=== PATIENT | female | born 1940 | race Caucasian/White ===

== ENCOUNTER → 2023-06-11 08:57 | Outpatient (CLI) | payer OTHER, SELFPAY ==
--- NOTE | 2023-06-11 | DI.MRI.S_ITS ---
PROCEDURE: MR LUMBAR SPINE WO CON INDICATIONS: SPINAL STENOSIS TECHNIQUE: Noncontrast sagittal T1 spin echo and T2 fast echo, sagittal STIR, and T2 fast spin echo through the lumbar spine. In cases with scoliosis, additional coronal T2 fast spin echo may be performed. COMPARISON: [facility] [place], CR, XR LUMBAR SPINE 2 OR 3 VIEWS, 06/04/2023, 9:16. FINDINGS: Image quality: Excellent. Alignment and Curvature: Mild levocurvature of the thoracolumbar spine. Minimal anterolisthesis of L3 on L4. Bone Marrow: Marrow is of normal overall signal. Multilevel degenerative endplate changes, most pronounced at L5-S1. No acute vertebral body compression fractures. Spinal Cord: Conus medullaris terminates at the L1-L2 level. Visualized cord demonstrates normal signal and size. Paraspinous Soft Tissues: No paravertebral masses. Right renal simple cysts. T12-L1: Disc desiccation height loss with posterior disc bulge. Facet arthropathy. Mild central canal stenosis. Moderate left and mild right neural foraminal stenosis. L1-L2: Disc desiccation height loss with posterior disc bulge. Facet arthropathy and thickening of the ligamentum flavum. Moderate central canal stenosis. Moderate bilateral neural foraminal stenosis. L2-L3: Disc desiccation height loss with posterior disc bulge. Facet arthropathy and thickening of ligamentum flavum. Moderate central canal stenosis. Mild bilateral neural foraminal stenosis. L3-L4: Disc desiccation height loss with diffuse disc bulge and superiorly directed disc extrusion. Facet arthropathy and thickened ligamentum flavum. Severe central canal stenosis. Moderate right and mild left neural foraminal stenosis. L4-L5: Disc desiccation height loss. Facet arthropathy. Mild central canal stenosis. Mild bilateral neural foraminal stenosis. L5-S1: Disc desiccation and height loss. Mild posterior disc bulge with superimposed left paracentral disc protrusion resulting in narrowing of the left lateral recess. No central canal stenosis. Facet arthropathy. Moderate left neural foraminal stenosis. No right neural foraminal stenosis. IMPRESSION: 1. Multilevel degenerative changes of the lumbar spine, most pronounced at L3-L4 with a disc extrusion resulting in severe central canal stenosis. 2. Multilevel central canal stenosis as described above, moderate L1-L2 and L2-L3. 3. Multilevel neural foraminal stenosis up to moderate, as described above. Dictated by: Wilber Stevens M.D. on 06/11/2023 at 10:45 Approved by: Wilber Stevens M.D. on 06/11/2023 at 10:52
== END ==
PROVIDERS: Referring Provider Physical Medicine & Rehabilitation; Visit Provider Physical Medicine & Rehabilitation
DX: M48.062 Spinal stenosis, lumbar region with neurogenic claudication (principal); M51.26 Other intervertebral disc displacement, lumbar region; M48.061 Spinal stenosis, lumbar region without neurogenic claudication
CPT/HCPCS: 72148

== ENCOUNTER 2023-07-13 12:04 | Inpatient (IN) | payer OTHER, SELFPAY ==
[2023-07-13] VITALS (14 sets, daily range): BP systolic 145–186; BP diastolic 77–101; PULSE 62–86; RESP 12–20; TEMP 36.1–36.6; O2SAT 93–100; BMI 28.3
--- NOTE | 2023-07-13 13:17 | PM.PREOP ---
Pre-operative Note Interval Note History & Physical reviewed/Exam performed by Physician: Yes Changes to H&P: No
[2023-07-13] MEDS: LACTATED RINGERS 1,000 ML 100 ML IV (13:20)
--- NOTE | 2023-07-13 13:44 | SUR.OPER ---
Prone on spine table, head in foam head support, padded chest and pelvic supports, gel pad at knees, lower legs supported by pillows; nipples, genitalia and toes free of pressure, arms secured on foam padded arm boards at <90 degrees abduction. Tape over blanket at thigh secured to table.
[2023-07-13] MEDS: CEFAZOLIN 2 GM/100 ML PREMIX 100 ML IV ×2 (14:20→21:17)
[2023-07-13] MEDS: BUPIVACAINE LIPOSOME 266 MG/20 ML VIAL INJ (15:59)
[2023-07-13] MEDS: BUPIVACAINE 0.25% (PF) 60 ML, EPINEPHrine 0.15 MG INJ (15:59)
--- NOTE | 2023-07-13 16:16 | P.OP_ITS ---
Operative Date/Time/Diagnoses Date of procedure: 07/13/23 Time of procedure: 14:30 Pre-op diagnosis: 1. L3-4 spinal stenosis with neurogenic claudication 2. L3-4 disc herniation Post-op diagnosis: same Procedure & Clinicians Procedure: 1. L3-4 Postero-lateral and posterior interbody fusion 2. L3-4 interbody cage placement. 3. L3-4 decompressive laminectomy with bilateral facetecomies 4. L3-4 Posterior non-segmental instrumentation 5. [place] of bone marrow from iliac crest 6. Utilization of microsurgical technique and operating microscope Same procedure as scheduled: Yes Indications: Patient has been having chronic back pain and worsening lumbar radiculopathy and symptoms of neurogenic claudication. The patient has been having worsening difficulty walking and is only able to walk 1 block. She is only able to stand for 5 minutes before her leg pain becomes severe. She has bilateral lower extremity symptoms that alternates in severity and laterality for the last 3 months. Patient failed multiple conservative management with worsening pain weakness and numbness in her lower extremity. Patient has been having difficulty performing activity of daily living. After discussing risks benefits of treatment options, patient elected proceed with surgery. Surgeon: Demarcus Diaz Filling And Packing Supervisor: Loreto Neville Click Yes if Unassisted: No Anesthesia Type: General Operative Notes Closure Type: primary Specimen(s): none sent Prosthetic devices, grafts, tissues, transplants, or devices: Globus revolve screws, Rise cage Estimated Blood Loss (mL): 50 Blood products transfused: none Procedure in detail: Patient was seen in the preoperative area. Risks and benefits of the surgery was discussed with the patient. Informed consent was obtained from the patient and placed in the chart. Surgical site was marked. Patient was taken to the operative room. General anesthesia was administered. Prophylactic antibiotic was given to the patient less than 30 min before the incision was made. Patient was placed into a prone position on the Leroy table. Patient's back was then prepped and draped in the sterile fashion. Time-out was performed at this time. Using AP and lateral C-arm imaging the interval between L3-4 was identified and marked on patient's back. A 2 inch incision 2 in from midline was made on the right side first. The fascia was incised in line with skin incision. Globus MARS retractors was placed inside the incision and docked onto the L4 lamina. Using microsurgical technique and operating microscope, a for laminectomy and L3-4 facetectomy was performed using a Kerrison rongeur. The laminectomy and facetectomy was performed in order to decompress patient's cauda equina as well as the nerve roots exiting at the L3-4 level. The disc space at L3-4 was identified. And a total diskectomy was performed at L3-4 level. Patient was found to have skin and consider amount of extruded disc fragments in the epidural space anterior to the thecal sac as well as in the posterolateral recess of the L3-4 level. Total discectomy was necessary in order to fully decompress the epidural space as well as the lateral recess. The decompression consisting of laminectomy facetectomy and diskectomy rendered the L3-4 level grossly unstable and required a fusion procedure at the same time. The endplates were decorticated using a rasp and shaver. The total diskectomy and decortication was performed at L3-4 level in order to to accomplish a L3-4 fusion. The local bone from the laminectomy and facetectomy was saved for local bone grafting. After the total diskectomy and decortication was completed, the BM bone graft material was combined with local bone that was harvested earlier. At this time, a separate skin is incision was made over the iliac crest. A Jamshidi needle was inserted into the iliac crest through a separate skin incision. 5 cc of bone marrow aspiration was obtained through the separate skin incision using a Jamshidi needle from the iliac crest. The bone marrow aspiration was combined with local bone and the DBM bone grafting material. The bone grafting material was placed into the L3-4 interbody space along with a expandable cage. The cage was expanded to its maximum height using the torque limiting screwdriver. At this time a mirror image incision was made on the left side. The fascia was incised in line with the skin incision. Globus MARS retractor was inserted and docked onto the L3-4 posterolateral gutter. Using the power drill, posterior- lateral decortication was performed at L3-4 level until bleeding cortical bone was identified. The remaining bone grafting material was placed into the L3-4 posterior lateral gutter he order to accomplish posterolateral fusion at the L3- 4 level. Using the double C-arm technique, pedicle screws were placed into the L3-4 pedicles bilaterally. This was done by placing the Jamshidi needle into the pedicles, then placing the guidewires over the Jamshidi needle, and finally placing the cannulated screws over the guidewires bilaterally. After the pedicle screws were placed, 2 titanium rods was locked into the heads of the pedicle screws using locking caps and torque limiting screwdriver. After all the hardware was placed, and confirmed with AP and lateral C-arm imaging, the wound was then irrigated with sterile normal saline and packed with Ray-Oscar gauze for 3 min to accomplish hemostasis. After the gauze was removed the deep fascia was closed with #1 Vicryl suture. The subcutaneous layer was closed with 2-0 Vicryl. The skin was closed with skin daksha. Patient tolerated the procedure well. There were no complications. The Operation could not have been safely performed without compromising the technical result or length of the procedure, without the assistance of a skilled registered nurse surgical services. The registered nurse surgical services was medically necessary for proper positioning, retraction and manipulation of instruments, proper exposure, surgical preparation, and manipulation of tissue. Complications: none Post-operative Condition: stable Disposition: PACU Plan for aftercare: Admit to inpatient hospital
--- NOTE | 2023-07-13 16:29 | DI.RAD.S_ITS ---
PROCEDURE: XR LUMBAR SPINE 2-3V INDICATIONS: L3-4 TLIF TECHNIQUE: 2 intraoperative fluoroscopic views of the lumbar spine were acquired. COMPARISON: None. FINDINGS: Intraoperative fluoroscopic images of lower lumbar spine shows posterior fusion of L3 and L4 vertebral bodies with intervertebral spacer placement. IMPRESSION: Fluoro guidance was provided intraoperatively for L3-4 TLIF. Dictated by: Filippo Chavez M.D. on 07/13/2023 at 17:26 Approved by: Filippo Chavez M.D. on 07/13/2023 at 17:26
--- NOTE | 2023-07-13 16:53 | SUR.PHASEI ---
Rebecca Ding notified of blood pressure 170/94. No new orders.
[2023-07-13] MEDS: fentaNYL 100 MCG/2 ML INJ IV ×2 (16:58→17:10)
[2023-07-13] MEDS: OXYCODONE IR 5 MG TABLET PO (17:05)
[2023-07-13] MEDS: hydrOXYzine pamoate 25 MG CAPSULE PO (17:13)
[2023-07-13] MEDS: HYDROMORPHONE 1 MG INJ IV (17:17)
[2023-07-13] MEDS: LABETALOL 20 MG/4 ML SYRINGE 10 MG IV (17:31)
[2023-07-13] MEDS: LACTATED RINGERS 1,000 ML 125 ML IV (18:18)
[2023-07-13] MEDS: HYDROMORPHONE 0.5 MG INJ IV (20:59)
[2023-07-13] MEDS: SENNOSIDES 8.6 MG TABLET 17.2 MG PO (21:17)
[2023-07-13] MEDS: DOCUSATE 100 MG CAPSULE PO (21:17)
[2023-07-14 00:44] VITALS: BP 152/80; PULSE 82; RESP 17; TEMP 36.2; O2SAT 96
[2023-07-14] MEDS: LACTATED RINGERS 1,000 ML 125 ML IV (03:07)
[2023-07-14] MEDS: CEFAZOLIN 2 GM/100 ML PREMIX 100 ML IV (03:07)
[2023-07-14 05:00] VITALS: BP 120/60; PULSE 83; RESP 19; TEMP 36.6; O2SAT 98
--- NOTE | 2023-07-14 07:48 | P.PN_ITS ---
Subjective Subjective Date Patient Seen: 07/14/23 Time Patient Seen: 07:48 Interval history: Pain motor to severe. Denies fever or chills. No nausea or vomiting. Patient lives alone. Exam Vital Signs (past 8 hours): - 07/14/23 00:44 07/14/23 05:00 Temperature 97.1 F L 98 F Pulse Rate 82 83 Respiratory Rate 17 19 Blood Pressure 152/80 H 120/60 Pulse Oximetry 96 98 Oxygen Flow Rate 0 Oxygen Delivery Method Nasal Cannula Oxygen Flow Rate 0 Narrative Exam Narrative: 82-year-old female resting comfortably in bed in no apparent distress. Motor functions intact bilateral lower extremities. Sensation grossly intact to light touch bilateral lower extremities. Const General: comfortable Nutritional Appearance: average body habitus Orientation: alert Resp Effort & Inspection: normal respiratory effort and able to speak in complete sentences [facility] [place] Medical History Cataract Arthritis Surgical History History of appendectomy Social History household members: none Smoking Status: Former smoker alcohol intake: current Assessment & Plan Post-op Postoperative Procedures: Procedures Operation Date: 07/13/23 14:15 Actual Procedure Side Surgeon p L3-4 TLIF Demarcus Diaz MD Postoperative day: 1 Postoperative status: doing well and marginal pain control Postoperative status narrative: Stable status post L3-L4 posterolateral and posterior interbody fusion Postoperative plan narrative: Mobilize with physical therapy, limit bending, twisting, lifting Multimodal pain management Disposition, patient lives alone will likely need [facility] facility placement Quality VTE Deep Vein Thrombosis/Pulmonary Embolism Present on Admission: No
[2023-07-14 07:51] VITALS: O2SAT 96
[2023-07-14] MEDS: OXYCODONE IR 5 MG TABLET PO ×3 (08:00→20:43)
[2023-07-14] MEDS: DOCUSATE 100 MG CAPSULE PO ×2 (08:01→20:43)
[2023-07-14 09:00] VITALS: BP 148/74; PULSE 89; RESP 16; TEMP 36.2; O2SAT 95
--- NOTE | 2023-07-14 10:51 | PT.IIE ---
Current Diagnoses Spondylolisthesis, lumbar region (07/13/23) Spinal stenosis, lumbar region with neurogenic claudication (07/13/23) Surgery Performed Operation Date: 07/13/23 14:15 Actual Procedures p L3-4 TLIF - Demarcus Diaz MD Surgical History (Last Reviewed 07/14/23 @ 07:49 by Kareem Neff PA-C) History of appendectomy Medical History (Last Reviewed 07/14/23 @ 07:49 by Kareem Neff PA-C) Arthritis Cataract Physical Therapy Inpatient Evaluation/Re-Eval M1 PT/OT-IP Prior Functional Status Start: 07/14/23 11:51 Freq: NEEDED Status: Active Protocol: Document 07/14/23 11:51 AB (Rec: 07/14/23 12:24 AB [id number]) Medical Review Prior Functional Status Medical History Reviewed Yes Diet/Fluid Consistency Regular Communication Pt is able to express all needs. Mobility and Gait Pt reports she used 4WW for household and community ambulation due to LBP and back spasms. She also notes she sometimes used transport w/c if her pain was severe, and used her LEs to propel herself . Activities of Daily Living and IADL's IND with ADLS, receives assistance with some heavier IADLs. Social History Household Members none Living Arrangements House Number of Floors (Floors) One Floor Number of Stairs To Enter/Railing? no DIN[place] through garage Home Environment Walk in Shower Home Equipment Front Wheel Walker,Four Wheel Walker,Manual Wheelchair, Raised Toilet Seat Without Armrests,Hand Held Shower,Grab Bars Near Toilet,Grab Bars In Shower Additional Social History Comment Pt's daughter reports she can assist the pt 23/03 for the first week if needed. M2 PT-IP Current Condition Start: 07/14/23 11:51 Freq: NEEDED Status: Active Protocol: Document 07/14/23 11:51 AB (Rec: 07/14/23 12:24 AB [id number]) Physical Therapy Current Condition Current Condition Evaluation Date 07/14/23 Treatment Diagnosis s/p lumbar TLIF L3-L4 Onset Date 07/13/23 M3 PT-IP Subjective Start: 07/14/23 11:51 Freq: NEEDED Status: Active Protocol: Document 07/14/23 11:51 AB (Rec: 07/14/23 12:24 AB [id number]) Subjective Physical Therapy Visit Type Type Initial Evaluation Visit Start Time 10:00 Visit Stop Time 10:51 Total Visit Minutes 51 Physical Therapy Visit Comments Patient Comments Pt presents semi supine in bed with family at bedside. Therapy Pain Assessment Pain When Pain Assessed During Mobility Pain Present Pain Present Pain Reported Location Lower Back Scale Used did not quantify Description Aching,Spasm Pain Behaviors Calling Out,Facial Grimacing, Wincing Pain Management Techniques Distraction,Re-positioning, Timing of Activity with Medications M4 PT-IP Mobility and Gait Start: 07/14/23 11:51 Freq: NEEDED Status: Active Protocol: Document 07/14/23 11:51 AB (Rec: 07/14/23 12:24 AB [id number]) PT-Bed Mobility Assessment Rolling Type of Rolling Log Rolling Level of Assist Moderate Assistance,1 Person Assistance Supine to Sit Supine to Sit Moderate Assistance,1 Person Assistance,Bedrails Sit to Supine Sit to Supine Moderate Assistance Scooting Scooting to Edge of Bed Standby Assistance PT-Transfer Assessment Sit to and From Stand Sit to and from Stand Standby Assistance,Use of Upper Extremities Equipment Transfer Assistive Device Gait Belt,Front Wheeled Walker Transfers Transfer Destination Bed Transfer Technique ambulated Transfer Ability Level of Assist Standby Assistance,Use of Upper Extremities Comments Mobility Comments The pt required modA to perform log roll for bed mobility due to pain and weakness. Once sitting, the pt was able to scoot to EOB with SBA, then performed STS with use of UEs, FWW and SBA, with PT providing verbal cues for proper hand placement and mechanics. The pt's BP remained stable throughout changes in position and she denied symptoms throughout. The pt then ambulated 20ft in room with FWW and SBA, but was unable to perform further mobility due to pain and fatigue. The pt request to return to bed and again required modA to perform log roll to return to supine. Once in supine, the pt was assisted to comfortable position in bed, with all needs met, call light within reach and daughter present in room. RN was notified of findings. Gait Assessment Gait Gait Assistance Required: Standby Assistance Distance (Feet) 20 Assistive Devices Assistive Device Gait Belt,Front Wheeled Walker Gait Deviations General Gait Pattern Decreased Stride Length, Decreased Feet Clearance Factors Limiting Gait Function Factors Limiting Gait Function Decreased Activity Tolerance, Decreased Strength,Limited Range of Motion,Pain Comments Gait Comments See mobility comments. Stair Climbing Assessment Comments Stair Climbing Comments NT due to pain and fatigue. PT-Balance Assessment Sitting Balance and Reactions Static Sitting Balance Ability Normal Dynamic Sitting Balance Ability Normal Standing Balance and Reactions Static Standing Balance Ability Normal Dynamic Standing Balance Ability Good Device Used FWW M5 PT-IP Objective Assessments Start: 07/14/23 11:51 Freq: NEEDED Status: Active Protocol: Document 07/14/23 11:51 AB (Rec: 07/14/23 12:24 AB [id number]) Orientation Orientation/Cognition Level of Alertness Alert Orientation Name,Age,Birthday,Month,Date, Year,Day of Week,Place, Situation Language Function Ability No Deficits Noted Safety Awareness Understands Safety Issues Memory Description No Deficits Noted Gross Range of Motion Upper Extremity ROM Assessment Within Functional Limits Lower Extremity ROM Assessment Within Functional Limits Strength Upper Extremity Strength Assessment Within Functional Limits Lower Extremity Strength Assessment Within Functional Limits M6 PT-IP Treatment Start: 07/14/23 11:51 Freq: NEEDED Status: Active Protocol: Document 07/14/23 11:51 AB (Rec: 07/14/23 12:24 AB [id number]) Physical Therapy Treatment Education Education Provided Precautions,Weight Bearing Status,Post-Op Packet,Safety Brace Education Patient,Caregiver M7 PT-IP Assessment and Plan Start: 07/14/23 11:51 Freq: NEEDED Status: Active Protocol: Document 07/14/23 11:51 AB (Rec: 07/14/23 12:24 AB [id number]) PT Summary Assessment and Plan Potential Rehabilitation Potential Good Status of Condition at Evaluation Stable Summary Impairments Pain,ROM,Strength,Balance,Bed Mobility,Transfers,Gait, Activity Tolerance Assessment Summary Amada Ferguson is an 82 year old female patient who is s/p lumbar TLIF L3-L4 performed on 07/13/23. Today's PT evaluation revealed the pt requires modA to perform log roll technique for bed mobility, but was SBA for STS, transfers and ambulation of 20ft with FWW. Based on her current level of function and expected progress, PT recommends discharge to home with 24/ assistance and referral to outpatient PT as necessary to improve her post operative outcomes. The pt would benefit from skilled PT during her hospitalization to improve to her highest level of function. Goals Bed Mobility Goal Standby Assistance Transfer Goal Independent,Front Wheeled Walker,Four Wheeled Walker Gait Goal Independent,Front Wheel Walker ,Four Wheel Walker Gait Distance 100 Other Goals Pt to perform transfer with LRAD to show improving level of function. Pt to ambulate 100ft or more independently with LRAD to show improving tolerance to activity. Days to Meet Goals 5 Frequency of Treatment Frequency Of Treatment Twice a Day Treatment Plan Physical Therapy Treatment Plan Bed Mobility Training,Transfer Training,Gait Training, Therapeutic Exercise,Balance Retraining,Post Op Education, Discharge Planning,Hot or Cold Pack,Neuromuscular Re-ed, Coordination Retraining,Manual Therapy Other Recommendations and Next Treatment Continue training on log roll Focus technique. Precautions Lumbar Precautions Log Roll,No Twisting,Limit Bending,Lifting Restriction of 10 lbs,Gait Belt above Incisional Area Weight Bearing Status Weight Bearing Status Weight Bear as Tolerated Recommendations To Nursing Amount of Assist Needed 1 Person Assist Discharge Recommendations PT Discharge Recommendations Home with 24/ Assist Available,Home Health Transportation Needs at Discharge Private Vehicle
[2023-07-14] MEDS: ACETAMINOPHEN 325 MG TABLET 650 MG PO (11:08)
--- NOTE | 2023-07-14 14:03 | PT-IP ANOTE ---
RN to have pain medication administered prior to PT.
--- NOTE | 2023-07-14 15:15 | PT.IPTN ---
Current Diagnoses Spondylolisthesis, lumbar region (07/13/23) Spinal stenosis, lumbar region with neurogenic claudication (07/13/23) Surgery Performed Operation Date: 07/13/23 14:15 Actual Procedures p L3-4 TLIF - Demarcus Diaz MD Physical Therapy Treatment Note M2 PT-IP Current Condition Start: 07/14/23 11:51 Freq: NEEDED Status: Active Protocol: Document 07/14/23 11:51 AB (Rec: 07/14/23 12:24 AB [id number]) Physical Therapy Current Condition Current Condition Evaluation Date 07/14/23 Treatment Diagnosis s/p lumbar TLIF L3-L4 Onset Date 07/13/23 M3 PT-IP Subjective Start: 07/14/23 11:51 Freq: NEEDED Status: Active Protocol: Document 07/14/23 15:45 TS (Rec: 07/14/23 15:59 TS [id number]) Subjective Physical Therapy Visit Type Type Treatment Note Visit Start Time 15:15 Visit Stop Time 15:43 Total Visit Minutes 28 Notes Daughter present for caregiver training. Number of SECOND CRUSHER Visits 1 Physical Therapy Visit Comments Patient Comments Pt found resting in bed, agreeable to PT. Therapy Pain Assessment Pain When Pain Assessed During Mobility Pain Present Pain Present Pain Reported M4 PT-IP Mobility and Gait Start: 07/14/23 11:51 Freq: NEEDED Status: Active Protocol: Document 07/14/23 15:45 TS (Rec: 07/14/23 15:59 TS [id number]) PT-Bed Mobility Assessment Rolling Type of Rolling Log Rolling Level of Assist Standby Assistance Supine to Sit Supine to Sit Contact Guard Assistance,1 Person Assistance,Bedrails Scooting Scooting to Edge of Bed Standby Assistance PT-Transfer Assessment Sit to and From Stand Sit to and from Stand Standby Assistance,Use of Upper Extremities Equipment Transfer Assistive Device Gait Belt,Front Wheeled Walker Comments Mobility Comments Pt recalled 2/3 spinal precautions prior to mobility, did not recalling lifting. PT provided cues for logroll sequencing to R side SBA, educated daughter on proper sequencing. Supine to sit CGA with cues for BUE support, pt required extra effort to complete. Sit to stand with FWW SBA, instructed daughter in proper hand placement on gait belt. She ambulated with FWW 75' SBA with slow emerging step thru gait, had no buckling or LOB. She ambulated to toilet, stand to sit SBA with use of grab bars and FWW, performed own pericare. Pt was left back in chair, all needs met, daughter in room. Gait Assessment Gait Gait Assistance Required: Standby Assistance Distance (Feet) 75 Assistive Devices Assistive Device Gait Belt,Front Wheeled Walker Gait Deviations General Gait Pattern Decreased Stride Length, Decreased Feet Clearance Factors Limiting Gait Function Factors Limiting Gait Function Decreased Activity Tolerance, Decreased Strength,Limited Range of Motion,Pain Comments Gait Comments See mobility comments. PT-Balance Assessment Sitting Balance and Reactions Static Sitting Balance Ability Normal Dynamic Sitting Balance Ability Good Standing Balance and Reactions Static Standing Balance Ability Good Dynamic Standing Balance Ability Good Device Used FWW M5 PT-IP Objective Assessments Start: 07/14/23 11:51 Freq: NEEDED Status: Active Protocol: Document 07/14/23 11:51 AB (Rec: 07/14/23 12:24 AB [id number]) Orientation Orientation/Cognition Level of Alertness Alert Orientation Name,Age,Birthday,Month,Date, Year,Day of Week,Place, Situation Language Function Ability No Deficits Noted Safety Awareness Understands Safety Issues Memory Description No Deficits Noted Gross Range of Motion Upper Extremity ROM Assessment Within Functional Limits Lower Extremity ROM Assessment Within Functional Limits Strength Upper Extremity Strength Assessment Within Functional Limits Lower Extremity Strength Assessment Within Functional Limits M6 PT-IP Treatment Start: 07/14/23 11:51 Freq: NEEDED Status: Active Protocol: Document 07/14/23 15:45 TS (Rec: 07/14/23 15:59 TS [id number]) Physical Therapy Treatment Education Education Provided Precautions,Safety M7 PT-IP Assessment and Plan Start: 07/14/23 11:51 Freq: NEEDED Status: Active Protocol: Document 07/14/23 15:45 TS (Rec: 07/14/23 15:59 TS [id number]) PT Summary Assessment and Plan Potential Rehabilitation Potential Good Summary Impairments Pain,ROM,Strength,Balance,Bed Mobility,Transfers,Gait, Activity Tolerance Progress Towards Goals Progressing Toward Goals Assessment Summary Amada is making good progress with her mobility. She is SBA for logroll and CGA for supine to sit. Demonstrates some carryover of sequencing but requires cues for use of handrails and BUE support. She continues to be SBA for sit to stands with FWW, demonstrates good standing balance. She progressed her gait to ~75' SBA with FWW, had no buckling or LOB. Daughter was instructed in and performed donning of gait belt , bed mobility sequencing, sit to stand technique and gait. Pt requires some cueing for spinal precautions throughout session, tends to twist. PT is recommending home with 24/7 assist. Goals Bed Mobility Goal Standby Assistance Transfer Goal Independent,Front Wheeled Walker,Four Wheeled Walker Gait Goal Independent,Front Wheel Walker ,Four Wheel Walker Gait Distance 100 Other Goals Pt to perform transfer with LRAD to show improving level of function. Pt to ambulate 100ft or more independently with LRAD to show improving tolerance to activity. Days to Meet Goals 5 Frequency of Treatment Frequency Of Treatment Twice a Day Treatment Plan Physical Therapy Treatment Plan Bed Mobility Training,Transfer Training,Gait Training, Therapeutic Exercise,Balance Retraining,Post Op Education, Discharge Planning,Hot or Cold Pack,Neuromuscular Re-ed, Coordination Retraining,Manual Therapy Other Recommendations and Next Treatment Continue training on log roll Focus technique. Precautions Lumbar Precautions Log Roll,No Twisting,Limit Bending,Lifting Restriction of 10 lbs,Gait Belt above Incisional Area Weight Bearing Status Weight Bearing Status Weight Bear as Tolerated Recommendations To Nursing Amount of Assist Needed 1 Person Assist Discharge Recommendations PT Discharge Recommendations Home with 24/7 Assist Available,Home Health Transportation Needs at Discharge Private Vehicle
--- NOTE | 2023-07-14 16:43 | OT.IP.EVAL ---
Addendum entered and electronically signed by Maribel Donohue OT 07/14/23 17:18: esign Original Note: Current Diagnoses Spondylolisthesis, lumbar region (07/13/23) Spinal stenosis, lumbar region with neurogenic claudication (07/13/23) Surgery Performed Operation Date: 07/13/23 14:15 Actual Procedures p L3-4 TLIF - Demarcus Diaz MD Past Medical History (Last Reviewed 07/14/23 @ 07:49 by Kareem Neff PA-C) Arthritis Cataract Surgical History (Last Reviewed 07/14/23 @ 07:49 by Kareem Neff PA-C) History of appendectomy Occupational Therapy Inpatient Evaluation/Re-Eval M1 PT/OT-IP Prior Functional Status Start: 07/14/23 17:02 Freq: NEEDED Status: Active Protocol: Document 07/14/23 16:10 [facility] (Rec: 07/14/23 17:16 [facility] [id number]) Medical Review Prior Functional Status Medical History Reviewed Yes Diet/Fluid Consistency Regular Communication Pt is able to express all needs. Mobility and Gait Pt reports she used 4WW for household and community ambulation due to LBP and back spasms. She also notes she sometimes used transport w/c if her pain was severe, and used her LEs to propel herself . Activities of Daily Living and IADL's IND with ADLS, receives assistance with some heavier IADLs. Prior Functional Level (Other details) Pt's daughter and son in law to stay for the week to assist her. Social History Household Members none Living Arrangements House Number of Floors (Floors) One Floor Number of Stairs To Enter/Railing? no DIN[place]A through garage Home Environment Walk in Shower Home Equipment Front Wheel Walker,Four Wheel Walker,Manual Wheelchair, Raised Toilet Seat Without Armrests,Hand Held Shower,Grab Bars Near Toilet,Grab Bars In Shower Additional Social History Comment Pt's daughter reports she can assist the pt 23/03 for the first week if needed. M2 OT-IP Current Condition Start: 07/14/23 17:02 Freq: Status: Active Protocol: Document 07/14/23 16:10 [facility] (Rec: 07/14/23 17:16 [facility] [id number]) Occupational Therapy Current Condition Current Condition Evaluation Date 07/14/23 Treatment Diagnosis S/P L3-4 TLIF Diagnosis Onset Date 07/13/23 Post Operative Precautions Lumbar Precautions Log Roll,No Twisting,Limit Bending,Lifting Restriction of 10 lbs,Gait Belt above Incisional Area M3 OT- IP Subjective and Pain Start: 07/14/23 17:02 Freq: Status: Active Protocol: Document 07/14/23 16:10 [facility] (Rec: 07/14/23 17:16 [facility] [id number]) OT- Subjective Occupational Therapy Visit Type Type Initial Evaluation Visit Start Time 16:10 Visit Stop Time 16:43 Total Visit Minutes 33 Occupational Therapy Visit Comments Patient Comments Pt agreed to get up to try to use the bathroom. Patient/Caregiver Goals To go home. OT Pain Assessment Pain When Pain Assessed At Rest Pain Present Pain Present Pain Reported Location Lower Back Intensity 5 Scale Used Numeric (0 - 10) M4 OT- IP ADL's Start: 07/14/23 17:02 Freq: Status: Active Protocol: Document 07/14/23 16:10 [facility] (Rec: 07/14/23 17:16 [facility] [id number]) OT ADL-Grooming Comments OT Grooming Comments Not performed. OT ADL-Oral Care Comments Oral Care Comments Pt did earlier and educated best to spit into a cup or hinge at her hips in order to best follow her back precautions. OT ADL-Dressing Comments OT Dressing Comments Pt states to just wear slippers. Suggested pt get a installers mechanical to assist with ronan/ doff her underwear and pants over her feet. Pt not interested in a sock aid. OT ADL-Toileting General Evaluation Toileting Ability Standby Assistance Comments OT Toileting Comments Pt educated to scoot forwards on the BSC so able to wipe and pt able to reach appropriately from the back. Suggested use of wet ones and to be sure to call her daughter to assist her at night. OT ADL-Bathing Comments OT Bathing Comments Pt will benefit from a shower chair. M5 OT- IP IADL's Start: 07/14/23 17:02 Freq: Status: Active Protocol: Document 07/14/23 16:10 [facility] (Rec: 07/14/23 17:16 [facility] [id number]) OT-Instrumental Activities of Daily Living Deficits IADL Deficits Identified Deficits Home Safety Awareness Awareness of Need for Assistance at Home Decreased Awareness Ability to Problem Solve Emergency Able to Problem Solve Situations Home Safety Comments Pt is insistent on her care as times and feels that she can do everything on her own. Meal Preparation Meal Preparation Caregiver Provides Assist Relationship Manager Relationship Manager Caregiver Provides Assist M6 OT- IP Functional Cognition Start: 07/14/23 17:02 Freq: Status: Active Protocol: Document 07/14/23 16:10 [facility] (Rec: 07/14/23 17:16 [facility] [id number]) Cognitive Factors Limiting Selfcare Function Cognitive Ability Level of Alertness Alert Patient Orientation Name,Place,Situation Attention Span Ability Capable of Focused Attention, Capable of Sustained Attention Ability to Follow Commands Able to Follow One Step Commands Safety Awareness Underestimates Need for Assistance Cognitive Comments Cognitive Assessment Comments Pt needing reminders for her back precautions and to ask for help as needed. Pt's daughter states , she doesn't want my help. M7 OT- IP Mobility and Balance Start: 07/14/23 17:02 Freq: Status: Active Protocol: Document 07/14/23 16:10 [facility] (Rec: 07/14/23 17:16 [facility] [id number]) OT-Transfer Assessment Sit to and From Stand Sit to and from Stand Contact Guard Assistance, Minimal Assistance Transfers Transfer Ability Standby Assistance Technique Transfer Destination Chair Transfer Technique Stand Step Pivot Devices Transfer Assistive Devices Gait Belt,Front Wheeled Walker Comments Mobility Comments Able to educate pt's daughter to ronan/doff the gait belt and how to assist the pt. Pt needing ABIGAIL to come to stand from lower surfaces. Once on her feet , pt is SBA with the FWW. OT- Balance Assessment Sitting Balance and Reactions Static Sitting Balance Ability Normal Dynamic Sitting Balance Ability Good Standing Balance and Reactions Static Standing Balance Ability Good Dynamic Standing Balance Ability Good M9 OT- IP Assessment and Plan Start: 07/14/23 17:02 Freq: Status: Active Protocol: Document 07/14/23 16:10 [facility] (Rec: 07/14/23 17:16 [facility] [id number]) OT Summary Assessment and Plan Potential Rehabilitation Potential Excellent Analytic Complexity at Evaluation Low Summary OT Impairments Pain,Balance,Functional Mobility,Dressing,Toileting, Bathing,Toilet Transfers, Shower Transfers Progress Towards Goals Progressing Toward Goals Assessment Summary Pt main barriers is insistent on her care and insistent that she is independent. Pt educated to be sure to ask her daughter for assist. Pt needing vc for her back precautions, and safety when coming to stand to push up with both arms and reach back with both arms as well. Pt 's daughter to stay with her for the week to assist. Goals Dressing Goal Independent Toileting Goal Independent Bathing Goal Standby Assistance Toilet Transfer Goal Independent Shower Transfer Goal Standby Assistance Days to Meet Goals 2 Frequency of Treatment Frequency Of Treatment Once a Day Treatment Plan OT Treatment Plan ADL Training,Functional Mobility,Patient/Family Education,Discharge Planning Discharge Recommendations OT Discharge Recommendations Home with Assistance Home Equipment Needs shower chair Transportation Needs at Discharge Private Vehicle
[2023-07-14 17:00] VITALS: BP 136/65; PULSE 81; RESP 16; TEMP 36.6; O2SAT 93
[2023-07-14] MEDS: SENNOSIDES 8.6 MG TABLET 17.2 MG PO (20:43)
[2023-07-14 20:55] VITALS: BP 170/78; PULSE 94; RESP 18; TEMP 36.5; O2SAT 94
[2023-07-15] MEDS: ACETAMINOPHEN 325 MG TABLET 650 MG PO (00:08)
[2023-07-15] MEDS: OXYCODONE IR 5 MG TABLET PO ×4 (00:09→20:19)
[2023-07-15 01:00] VITALS: BP 135/67; PULSE 84; RESP 18; TEMP 36.3; O2SAT 93
[2023-07-15 05:00] VITALS: BP 154/83; PULSE 88; RESP 18; TEMP 36.4; O2SAT 95
[2023-07-15] MEDS: DOCUSATE 100 MG CAPSULE PO ×2 (08:28→20:21)
[2023-07-15] MEDS: SODIUM CHLORIDE 0.9% FLUSH 10 ML IV (08:29)
[2023-07-15 09:00] VITALS: BP 147/81; PULSE 91; RESP 18; TEMP 36.4; O2SAT 95
--- NOTE | 2023-07-15 09:00 | PT.IPTN ---
Current Diagnoses Spondylolisthesis, lumbar region (07/13/23) Spinal stenosis, lumbar region with neurogenic claudication (07/13/23) Surgery Performed Operation Date: 07/13/23 14:15 Actual Procedures p L3-4 TLIF - Demarcus Diaz MD Physical Therapy Treatment Note M2 PT-IP Current Condition Start: 07/14/23 11:51 Freq: NEEDED Status: Active Protocol: Document 07/14/23 11:51 AB (Rec: 07/14/23 12:24 AB [id number]) Physical Therapy Current Condition Current Condition Evaluation Date 07/14/23 Treatment Diagnosis s/p lumbar TLIF L3-L4 Onset Date 07/13/23 M3 PT-IP Subjective Start: 07/14/23 11:51 Freq: NEEDED Status: Active Protocol: Document 07/15/23 09:33 ZF (Rec: 07/15/23 10:07 ZF [id number]) Subjective Physical Therapy Visit Type Type Treatment Note Visit Start Time 09:00 Visit Stop Time 09:31 Total Visit Minutes 31 Notes Daughter present for treatment this morning. Confirmed with nursing that pt had pain meds prior to treatment. Pt does not report pain during mobility training. Number of CONTENT SPECIALIST Visits 2 Physical Therapy Visit Comments Patient Comments Pt found sitting up in personal 4ww seat, agreeble to therapy. M4 PT-IP Mobility and Gait Start: 07/14/23 11:51 Freq: NEEDED Status: Active Protocol: Document 07/15/23 09:33 ZF (Rec: 07/15/23 10:07 ZF [id number]) PT-Bed Mobility Assessment Rolling Type of Rolling Log Rolling Level of Assist Minimal Assistance Sit to Supine Sit to Supine Minimal Assistance PT-Transfer Assessment Sit to and From Stand Sit to and from Stand Standby Assistance,Use of Upper Extremities Equipment Transfer Assistive Device Gait Belt,Front Wheeled Walker Comments Mobility Comments Pt motivated for therapy this morning. Able to recall 3/3 spinal precautions. Pt amb ~75 ' w/personal 4ww, SBA. Verbal cues for appropriate proximity to AD. Pt dems good safety awareness with use of brakes. Adjusted 4ww height for improved comfort and safety. STS from 4ww, EOB w/4ww requires SBA for safety. Verbal cues for proper handplacement. Bed Mobility: Sitting EOB>Supine requires Camacho for LE management. Pt able to scoot in bed with Ind. Gait Assessment Gait Gait Assistance Required: Standby Assistance Distance (Feet) 100 Able to Maintain Weight Bearing Status Yes During Gait Assistive Devices Assistive Device Gait Belt,4 Wheeled Walker Gait Deviations General Gait Pattern Decreased Stride Length Factors Limiting Gait Function Factors Limiting Gait Function Decreased Activity Tolerance, Decreased Strength Comments Gait Comments See mobility comments. PT-Balance Assessment Sitting Balance and Reactions Static Sitting Balance Ability Normal Dynamic Sitting Balance Ability Good Standing Balance and Reactions Static Standing Balance Ability Good Dynamic Standing Balance Ability Good Device Used 4WW M5 PT-IP Objective Assessments Start: 07/14/23 11:51 Freq: NEEDED Status: Active Protocol: Document 07/14/23 11:51 AB (Rec: 07/14/23 12:24 AB [id number]) Orientation Orientation/Cognition Level of Alertness Alert Orientation Name,Age,Birthday,Month,Date, Year,Day of Week,Place, Situation Language Function Ability No Deficits Noted Safety Awareness Understands Safety Issues Memory Description No Deficits Noted Gross Range of Motion Upper Extremity ROM Assessment Within Functional Limits Lower Extremity ROM Assessment Within Functional Limits Strength Upper Extremity Strength Assessment Within Functional Limits Lower Extremity Strength Assessment Within Functional Limits M6 PT-IP Treatment Start: 07/14/23 11:51 Freq: NEEDED Status: Active Protocol: Document 07/15/23 09:33 ZF (Rec: 07/15/23 10:07 ZF [id number]) Physical Therapy Treatment Education Education Provided Precautions,Safety M7 PT-IP Assessment and Plan Start: 07/14/23 11:51 Freq: NEEDED Status: Active Protocol: Document 07/15/23 09:33 ZF (Rec: 07/15/23 10:07 ZF [id number]) PT Summary Assessment and Plan Potential Rehabilitation Potential Good Summary Impairments Pain,ROM,Strength,Balance,Bed Mobility,Transfers,Gait, Activity Tolerance Progress Towards Goals Progressing Toward Goals Assessment Summary Amada continues to progress toward goals. Pt requires Camacho for LE management for sit to Supine. Pt tolerates increased amb distances ~100ft, today w /personal 4ww, SBA. Pt does not report pain today, dems slight grimaces w/STS. Able to recall 3/3 spinal precaution, dems good awareness of them with mobility training. Goals Bed Mobility Goal Standby Assistance Transfer Goal Independent,Front Wheeled Walker,Four Wheeled Walker Gait Goal Independent,Front Wheel Walker ,Four Wheel Walker Gait Distance 100 Other Goals Pt to perform transfer with LRAD to show improving level of function. Pt to ambulate 100ft or more independently with LRAD to show improving tolerance to activity. Days to Meet Goals 5 Frequency of Treatment Frequency Of Treatment Twice a Day Treatment Plan Physical Therapy Treatment Plan Bed Mobility Training,Transfer Training,Gait Training, Therapeutic Exercise,Balance Retraining,Post Op Education, Discharge Planning,Hot or Cold Pack,Neuromuscular Re-ed, Coordination Retraining,Manual Therapy Other Recommendations and Next Treatment Continue gait training w/pt's Focus personal 4ww. Precautions Lumbar Precautions Log Roll,No Twisting,Limit Bending,Lifting Restriction of 10 lbs,Gait Belt above Incisional Area Weight Bearing Status Weight Bearing Status Weight Bear as Tolerated Recommendations To Nursing Amount of Assist Needed 1 Person Assist Discharge Recommendations PT Discharge Recommendations Home with 23/03 Assist Available,Home Health Transportation Needs at Discharge Private Vehicle
--- NOTE | 2023-07-15 14:02 | PM.PNPO.1 ---
Subjective Subjective Date Patient Seen: 07/15/23 Time Patient Seen: 14:02 Interval history: Pt sitting up in bed, comfortable. Says pain in low back is greater today than yesterday. [place] like she did well with PT, but does want to discharge to SNF. She lives alone and still needs maximum assistance getting in and out of bed and does not have family that can be with her 23/03. Per family member, sounds like CM did talk to pt today about options. Exam Vital Signs (past 8 hours): - 07/15/23 09:00 Temperature 97.6 F Pulse Rate 91 H Respiratory Rate 18 Blood Pressure 147/81 H Pulse Oximetry 95 Oxygen Delivery Method Nasal Cannula Oxygen Flow Rate 0 Narrative Exam Narrative: 5/5 strength in hip flexors, quadriceps, hamstrings, DF, PF, EHL bilaterally. Sensation to light touch intact throughout BLE. Calves soft, compressible, nontender. PFSH Medical History Cataract Arthritis Surgical History History of appendectomy Social History household members: none Smoking Status: Former smoker alcohol intake: current Assessment & Plan Post-op Assessment and plan (1) S/P lumbar fusion: Assessment and Plan narrative: Continue PT, multimodal pain control, SCDs for VTE prophylaxis. D/c to SNF pending placement; likely tomorrow. Postoperative Procedures: Procedures Operation Date: 07/13/23 14:15 Actual Procedure Side Surgeon p L3-4 TLIF Demarcus Diaz MD Postoperative day: 2 Quality VTE Deep Vein Thrombosis/Pulmonary Embolism Present on Admission: No
--- NOTE | 2023-07-15 14:04 | CM.DANOTE ---
Reviewed EMR for pt's medical status and anticipated d/c needs. Met with pt, dtr, and son-in-law at bedside to introduce self and role. Pt found to be alert, able to express her needs and preferences for d/c. She and family are in agreement to opt for detention rehab, clinicals are being reviewed by [facility] for acceptance. Pending auth from insurance. Family are planning on remaining in [place] in order to assist with her transition to [facility]. DCP will continue to follow and continue to assist with placement. [facility] Adv. Attending: Dr. Diaz Pt is a 82 year-old F admitted following her lumbar TLIF surgery. She resides at [facility], family are planning on hiring in-home cg's for after she returns from rehab to continue to support her care needs. Discharge Planning/Care Management Advanced directive, confirm from FAMILY Start: 07/13/23 18:17 Freq: Q24H Status: Active Protocol: Document 07/14/23 18:17 LW (Rec: 07/14/23 18:41 LW [id number]) Advance Directive, confirm on record Time 18:41 Person contacted patient Copy received No CM Discharge Assessment Start: 07/15/23 13:54 Freq: Status: Active Protocol: Document 07/15/23 13:54 DPL (Rec: 07/15/23 14:01 DPL [id number]) Discharge Planning Assessment Assigned Truck Crane Operator TYRESE Arthur Advance Directives? Yes Advance Directives on File No History Provided By Patient,Family Member,Medical Record Has Patient been admitted in last 30 No days? Prior Living Arrangements Assisted Living Household Members none Type of transporation used prior to Relies on Others admit Facility Name Admitted From: [facility] Willing to Return to Facility? Yes Independent with ADL's No: Need's assistance with IADL's, some shopping/managing meds. Caregiver for Another No Comment N/A DME Already Rented / Owned FWW / Walker Patient/Family Preference Care Home Facility Comment Pt/family prefer SNF rehab rather than home with HH. Barriers to Discharge No Discharge Plan Care Home Facility Referrals Initiated Care Home Additional Comment [facility] is reviewing for acceptance-pending. If patient plan is SNF: Has PASSR been Yes completed? Inpatient Status as of 07/13/23 Medicare Choice List Provided Yes Medicare choice list reviewed on patient,family electronic tablet with Has Agency SNF been contacted Yes Whiteboard Updated in Patient Room with Yes name and ext. # of Truck Crane Operator Review Status In Process Please Provide Date Initial DC 07/15/23 Assessment Was Performed
--- NOTE | 2023-07-15 15:03 | OT.IP.TRT ---
Current Diagnoses Spondylolisthesis, lumbar region (07/13/23) Spinal stenosis, lumbar region with neurogenic claudication (07/13/23) Arthrodesis status (07/13/23) Surgery Performed Operation Date: 07/13/23 14:15 Actual Procedures p L3-4 TLIF - Demarcus Diaz MD Occupational Therapy Treatment Note M2 OT-IP Current Condition Start: 07/14/23 17:02 Freq: Status: Active Protocol: Document 07/14/23 16:10 [facility] (Rec: 07/14/23 17:16 [facility] [id number]) Occupational Therapy Current Condition Current Condition Evaluation Date 07/14/23 Treatment Diagnosis S/P L3-4 TLIF Diagnosis Onset Date 07/13/23 Post Operative Precautions Lumbar Precautions Log Roll,No Twisting,Limit Bending,Lifting Restriction of 10 lbs,Gait Belt above Incisional Area M3 OT- IP Subjective and Pain Start: 07/14/23 17:02 Freq: Status: Active Protocol: Document 07/15/23 16:18 [facility] (Rec: 07/15/23 16:29 [facility] [id number]) OT- Subjective Occupational Therapy Visit Type Type Treatment Note Visit Start Time 15:03 Visit Stop Time 15:11 Total Visit Minutes 8 Occupational Therapy Visit Comments Patient Comments Pt agreed to get up. Patient/Caregiver Goals Pt wanting to go to skilled rehab as not wanting to have her daughter assist her and wants to do it on her own at this time. OT Pain Assessment Pain When Pain Assessed At Rest Pain Present Pain Present Pain Reported M4 OT- IP ADL's Start: 07/14/23 17:02 Freq: Status: Active Protocol: Document 07/15/23 16:18 [facility] (Rec: 07/15/23 16:29 [facility] [id number]) OT [id number] Comments OT Self-Feeding Comments Pt has not been eating well. OT ADL-Grooming Comments OT Grooming Comments Pt states not wanting to do at this time due to having pain. OT ADL-Oral Care Comments Oral Care Comments Not performed. OT ADL-Dressing General Eval Lower Body Dressing Ability Maximum Assistance Comments OT Dressing Comments Pt now open to practicing use of sock aid and various exceptionalities teacher but not today as in too much pain. Initially family to assist pt , but now pt will be alone at home and will benefit from continued practice in order for pt to best follow her back precautions. OT ADL-Toileting Comments OT Toileting Comments Pt will benefit from a BSC. Pt tends to want to pull on the 4ww versus push up from surfaces. OT ADL-Bathing Comments OT Bathing Comments Pt will benefit from a shower chair. M5 OT- IP IADL's Start: 07/14/23 17:02 Freq: Status: Active Protocol: Document 07/14/23 16:10 [facility] (Rec: 07/14/23 17:16 [facility] [id number]) OT-Instrumental Activities of Daily Living Deficits IADL Deficits Identified Deficits Home Safety Awareness Awareness of Need for Assistance at Home Decreased Awareness Ability to Problem Solve Emergency Able to Problem Solve Situations Home Safety Comments Pt is insistent on her care as times and feels that she can do everything on her own. Meal Preparation Meal Preparation Caregiver Provides Assist Baseball Inspector Baseball Inspector Caregiver Provides Assist M6 OT- IP Functional Cognition Start: 07/14/23 17:02 Freq: Status: Active Protocol: Document 07/15/23 16:18 [facility] (Rec: 07/15/23 16:29 [facility] [id number]) Cognitive Factors Limiting Selfcare Function Cognitive Ability Level of Alertness Alert Patient Orientation Name,Place,Situation Attention Span Ability Capable of Focused Attention, Capable of Sustained Attention Ability to Follow Commands Able to Follow One Step Commands Safety Awareness Underestimates Need for Assistance Cognitive Comments Cognitive Assessment Comments Pt now states she will go to skilled rehab as wants to be able to take care of herself. Pt open to going over LB dressing equipment and ADL needs, but not today as it too much pain per pt. M7 OT- IP Mobility and Balance Start: 07/14/23 17:02 Freq: Status: Active Protocol: Document 07/15/23 16:18 [facility] (Rec: 07/15/23 16:29 [facility] [id number]) OT-Transfer Assessment Sit to and From Stand Sit to and from Stand Moderate Assistance Comments Mobility Comments MODA to stand when pushing up from the bed. Pt has great difficulty with transitions. Pt tends to want to grab the 4ww to stand , however someone is needing to help it in place and pt does not have anyone at home to assist with that. Pt will benefit from getting stronger especially coming to stand from lower surfaces. OT- Balance Assessment Sitting Balance and Reactions Static Sitting Balance Ability Normal Dynamic Sitting Balance Ability Good Standing Balance and Reactions Static Standing Balance Ability Good Dynamic Standing Balance Ability Good M9 OT- IP Assessment and Plan Start: 07/14/23 17:02 Freq: Status: Active Protocol: Document 07/15/23 16:18 [facility] (Rec: 07/15/23 16:29 [facility] [id number]) OT Summary Assessment and Plan Potential Rehabilitation Potential Good Analytic Complexity at Evaluation Low Summary OT Impairments Pain,Balance,Functional Mobility,Dressing,Toileting, Bathing,Toilet Transfers, Shower Transfers Progress Towards Goals Slow Progress due to Pain Assessment Summary Pt having more pain today and needing more assist when coming up to stand from lower surfaces. Pt now wanting to go to skilled rehab as will not be having 24/7 assist at this time. Pt will greatly benefit from continued practice of use of LB dressing equipment and incorporation of back precautions for ADL and mobility needs. Goals Dressing Goal Independent Toileting Goal Independent Bathing Goal Standby Assistance Toilet Transfer Goal Independent Shower Transfer Goal Standby Assistance Days to Meet Goals 10 Frequency of Treatment Frequency Of Treatment Once a Day Treatment Plan OT Treatment Plan ADL Training,Functional Mobility,Patient/Family Education,Discharge Planning Discharge Recommendations OT Discharge Recommendations SNF Rehab Home Equipment Needs shower chair Transportation Needs at Discharge Wheelchair/Cabulance
--- NOTE | 2023-07-15 15:12 | PT.IPTN ---
Current Diagnoses Spondylolisthesis, lumbar region (07/13/23) Spinal stenosis, lumbar region with neurogenic claudication (07/13/23) Arthrodesis status (07/13/23) Surgery Performed Operation Date: 07/13/23 14:15 Actual Procedures p L3-4 TLIF - Demarcus Diaz MD Physical Therapy Treatment Note M2 PT-IP Current Condition Start: 07/14/23 11:51 Freq: NEEDED Status: Active Protocol: Document 07/14/23 11:51 AB (Rec: 07/14/23 12:24 AB [id number]) Physical Therapy Current Condition Current Condition Evaluation Date 07/14/23 Treatment Diagnosis s/p lumbar TLIF L3-L4 Onset Date 07/13/23 M3 PT-IP Subjective Start: 07/14/23 11:51 Freq: NEEDED Status: Active Protocol: Document 07/15/23 15:28 TS (Rec: 07/15/23 15:42 TS [id number]) Subjective Physical Therapy Visit Type Type Treatment Note Visit Start Time 15:12 Visit Stop Time 15:25 Total Visit Minutes 13 Notes Split treatment with OT. Number of BAKERY TEAM MEMBER Visits 3 Physical Therapy Visit Comments Patient Comments Pt found resting in bed, pt reports increased pain this afternoon, is agreeable to PT. Therapy Pain Assessment Pain When Pain Assessed During Mobility Pain Present Pain Present Pain Reported Location Lower Back Scale Used did not quantify Description Aching,With Movement Pain Behaviors Calling Out,Facial Grimacing, Moaning,Wincing Pain Management Techniques Distraction,Modification of Treatment,Timing of Activity with Medications M4 PT-IP Mobility and Gait Start: 07/14/23 11:51 Freq: NEEDED Status: Active Protocol: Document 07/15/23 15:28 TS (Rec: 07/15/23 15:42 TS [id number]) PT-Bed Mobility Assessment Rolling Type of Rolling Log Rolling Level of Assist Standby Assistance Supine to Sit Supine to Sit Minimal Assistance,1 Person Assistance,Bedrails Sit to Supine Sit to Supine Minimal Assistance Scooting Scooting to Edge of Bed Standby Assistance PT-Transfer Assessment Sit to and From Stand Sit to and from Stand Contact Guard Assistance, Moderate Assistance,1 Person Assistance,Use of Upper Extremities Equipment Transfer Assistive Device Gait Belt,Front Wheeled Walker Comments Mobility Comments Pt recalled 3/3 spinal precautions prior to mobility. Logroll SBA to R side, pt i slow to perform roll and requires extra time. Sit to stand x1 with BUE support on 4WW CGA, sit to stand x1 BUE support pushing from bed ModA. She ambulated ~75' SBA with slow step thru gait and 4WW in room. Sit to supine into bed Camacho for for LEs, pt required cues for decreased twisting, she repositioned in bed with some cueing. Pt was left in bed, daughter in room, all needs met. Gait Assessment Gait Gait Assistance Required: Standby Assistance Distance (Feet) 75 Able to Maintain Weight Bearing Status Yes During Gait Assistive Devices Assistive Device Gait Belt,4 Wheeled Walker Gait Deviations General Gait Pattern Decreased Stride Length Factors Limiting Gait Function Factors Limiting Gait Function Decreased Activity Tolerance, Decreased Strength Comments Gait Comments See mobility comments. PT-Balance Assessment Sitting Balance and Reactions Static Sitting Balance Ability Normal Dynamic Sitting Balance Ability Good Standing Balance and Reactions Static Standing Balance Ability Good Dynamic Standing Balance Ability Good Device Used 4WW M5 PT-IP Objective Assessments Start: 07/14/23 11:51 Freq: NEEDED Status: Active Protocol: Document 07/14/23 11:51 AB (Rec: 07/14/23 12:24 AB [id number]) Orientation Orientation/Cognition Level of Alertness Alert Orientation Name,Age,Birthday,Month,Date, Year,Day of Week,Place, Situation Language Function Ability No Deficits Noted Safety Awareness Understands Safety Issues Memory Description No Deficits Noted Gross Range of Motion Upper Extremity ROM Assessment Within Functional Limits Lower Extremity ROM Assessment Within Functional Limits Strength Upper Extremity Strength Assessment Within Functional Limits Lower Extremity Strength Assessment Within Functional Limits M6 PT-IP Treatment Start: 07/14/23 11:51 Freq: NEEDED Status: Active Protocol: Document 07/15/23 15:28 TS (Rec: 07/15/23 15:42 TS [id number]) Physical Therapy Treatment Education Education Provided Precautions,Safety M7 PT-IP Assessment and Plan Start: 07/14/23 11:51 Freq: NEEDED Status: Active Protocol: Document 07/15/23 15:28 TS (Rec: 07/15/23 15:42 TS [id number]) PT Summary Assessment and Plan Potential Rehabilitation Potential Good Summary Impairments Pain,ROM,Strength,Balance,Bed Mobility,Transfers,Gait, Activity Tolerance Progress Towards Goals Progressing Toward Goals Assessment Summary Amada continues to make progress with her mobility. She is SBA for logroll and demonstrates good carryover of technique, is very slow with roll and requires extra time to complete. She is SBA for sit to stand with BUE support pulling on 4WW, requires ModA for sit to stand with 4WW pushing from bed. She continues to ambulate short distances in room ~75' SBA with 4WW. Pt recalled 3/3 spinal precautions but does require some cueing for decreased twisting when performing bed mobility. PT is recommending Home vs SNF at this time. She will require 24 /7 assist that pt does not currently have at home. Goals Bed Mobility Goal Standby Assistance Transfer Goal Independent,Front Wheeled Walker,Four Wheeled Walker Gait Goal Independent,Front Wheel Walker ,Four Wheel Walker Gait Distance 100 Other Goals Pt to perform transfer with LRAD to show improving level of function. Pt to ambulate 100ft or more independently with LRAD to show improving tolerance to activity. Days to Meet Goals 5 Frequency of Treatment Frequency Of Treatment Twice a Day Treatment Plan Physical Therapy Treatment Plan Bed Mobility Training,Transfer Training,Gait Training, Therapeutic Exercise,Balance Retraining,Post Op Education, Discharge Planning,Hot or Cold Pack,Neuromuscular Re-ed, Coordination Retraining,Manual Therapy Other Recommendations and Next Treatment Continue gait training w/pt's Focus personal 4ww. Precautions Lumbar Precautions Log Roll,No Twisting,Limit Bending,Lifting Restriction of 10 lbs,Gait Belt above Incisional Area Weight Bearing Status Weight Bearing Status Weight Bear as Tolerated Recommendations To Nursing Amount of Assist Needed 1 Person Assist Discharge Recommendations PT Discharge Recommendations Home with 24/7 Assist Available,Home Health,SNF Rehab,Home vs SNF Transportation Needs at Discharge Private Vehicle,Wheelchair/ Cabulance
--- NOTE | 2023-07-15 15:12 | PT.IPTN ---
Current Diagnoses Spondylolisthesis, lumbar region (07/13/23) Spinal stenosis, lumbar region with neurogenic claudication (07/13/23) Arthrodesis status (07/13/23) Surgery Performed Operation Date: 07/13/23 14:15 Actual Procedures p L3-4 TLIF - Demarcus Diaz MD Physical Therapy Treatment Note M2 PT-IP Current Condition Start: 07/14/23 11:51 Freq: NEEDED Status: Active Protocol: Document 07/14/23 11:51 AB (Rec: 07/14/23 12:24 AB [id number]) Physical Therapy Current Condition Current Condition Evaluation Date 07/14/23 Treatment Diagnosis s/p lumbar TLIF L3-L4 Onset Date 07/13/23 M3 PT-IP Subjective Start: 07/14/23 11:51 Freq: NEEDED Status: Active Protocol: Document 07/15/23 15:28 TS (Rec: 07/15/23 15:42 TS [id number]) Subjective Physical Therapy Visit Type Type Treatment Note Visit Start Time 15:12 Visit Stop Time 15:25 Total Visit Minutes 13 Notes Split treatment with OT. Number of ORCHESTRA LEADER Visits 3 Physical Therapy Visit Comments Patient Comments Pt found resting in bed, pt reports increased pain this afternoon, is agreeable to PT. Therapy Pain Assessment Pain When Pain Assessed During Mobility Pain Present Pain Present Pain Reported Location Lower Back Scale Used did not quantify Description Aching,With Movement Pain Behaviors Calling Out,Facial Grimacing, Moaning,Wincing Pain Management Techniques Distraction,Modification of Treatment,Timing of Activity with Medications M4 PT-IP Mobility and Gait Start: 07/14/23 11:51 Freq: NEEDED Status: Active Protocol: Document 07/15/23 15:28 TS (Rec: 07/15/23 15:42 TS [id number]) PT-Bed Mobility Assessment Rolling Type of Rolling Log Rolling Level of Assist Standby Assistance Supine to Sit Supine to Sit Minimal Assistance,1 Person Assistance,Bedrails Sit to Supine Sit to Supine Minimal Assistance Scooting Scooting to Edge of Bed Standby Assistance PT-Transfer Assessment Sit to and From Stand Sit to and from Stand Contact Guard Assistance, Moderate Assistance,1 Person Assistance,Use of Upper Extremities Equipment Transfer Assistive Device Gait Belt,Front Wheeled Walker Comments Mobility Comments Pt recalled 3/3 spinal precautions prior to mobility. Logroll SBA to R side, pt i slow to perform roll and requires extra time. Sit to stand x1 with BUE support on 4WW CGA, sit to stand x1 BUE support pushing from bed ModA. She ambulated ~75' SBA with slow step thru gait and 4WW in room. Sit to supine into bed Camacho for for LEs, pt required cues for decreased twisting, she repositioned in bed with some cueing. Pt was left in bed, daughter in room, all needs met. Gait Assessment Gait Gait Assistance Required: Standby Assistance Distance (Feet) 75 Able to Maintain Weight Bearing Status Yes During Gait Assistive Devices Assistive Device Gait Belt,4 Wheeled Walker Gait Deviations General Gait Pattern Decreased Stride Length Factors Limiting Gait Function Factors Limiting Gait Function Decreased Activity Tolerance, Decreased Strength Comments Gait Comments See mobility comments. PT-Balance Assessment Sitting Balance and Reactions Static Sitting Balance Ability Normal Dynamic Sitting Balance Ability Good Standing Balance and Reactions Static Standing Balance Ability Good Dynamic Standing Balance Ability Good Device Used 4WW M5 PT-IP Objective Assessments Start: 07/14/23 11:51 Freq: NEEDED Status: Active Protocol: Document 07/14/23 11:51 AB (Rec: 07/14/23 12:24 AB [id number]) Orientation Orientation/Cognition Level of Alertness Alert Orientation Name,Age,Birthday,Month,Date, Year,Day of Week,Place, Situation Language Function Ability No Deficits Noted Safety Awareness Understands Safety Issues Memory Description No Deficits Noted Gross Range of Motion Upper Extremity ROM Assessment Within Functional Limits Lower Extremity ROM Assessment Within Functional Limits Strength Upper Extremity Strength Assessment Within Functional Limits Lower Extremity Strength Assessment Within Functional Limits M6 PT-IP Treatment Start: 07/14/23 11:51 Freq: NEEDED Status: Active Protocol: Document 07/15/23 15:28 TS (Rec: 07/15/23 15:42 TS [id number]) Physical Therapy Treatment Education Education Provided Precautions,Safety M7 PT-IP Assessment and Plan Start: 07/14/23 11:51 Freq: NEEDED Status: Active Protocol: Document 07/15/23 15:28 TS (Rec: 07/15/23 15:42 TS [id number]) PT Summary Assessment and Plan Potential Rehabilitation Potential Good Summary Impairments Pain,ROM,Strength,Balance,Bed Mobility,Transfers,Gait, Activity Tolerance Progress Towards Goals Progressing Toward Goals Assessment Summary Amada continues to make progress with her mobility. She is SBA for logroll and demonstrates good carryover of technique, is very slow with roll and requires extra time to complete. She is SBA for sit to stand with BUE support pulling on 4WW, requires ModA for sit to stand with 4WW pushing from bed. She continues to ambulate short distances in room ~75' SBA with 4WW. Pt recalled 3/3 spinal precautions but does require some cueing for decreased twisting when performing bed mobility. PT is recommending SNF at this time . She would require 24/7 assist to be able to go home, pt does not currently have 24/ 7 at home. Goals Bed Mobility Goal Standby Assistance Transfer Goal Independent,Front Wheeled Walker,Four Wheeled Walker Gait Goal Independent,Front Wheel Walker ,Four Wheel Walker Gait Distance 100 Other Goals Pt to perform transfer with LRAD to show improving level of function. Pt to ambulate 100ft or more independently with LRAD to show improving tolerance to activity. Days to Meet Goals 5 Frequency of Treatment Frequency Of Treatment Twice a Day Treatment Plan Physical Therapy Treatment Plan Bed Mobility Training,Transfer Training,Gait Training, Therapeutic Exercise,Balance Retraining,Post Op Education, Discharge Planning,Hot or Cold Pack,Neuromuscular Re-ed, Coordination Retraining,Manual Therapy Other Recommendations and Next Treatment Continue gait training w/pt's Focus personal 4ww. Precautions Lumbar Precautions Log Roll,No Twisting,Limit Bending,Lifting Restriction of 10 lbs,Gait Belt above Incisional Area Weight Bearing Status Weight Bearing Status Weight Bear as Tolerated Recommendations To Nursing Amount of Assist Needed 1 Person Assist Discharge Recommendations PT Discharge Recommendations SNF Rehab Transportation Needs at Discharge Wheelchair/Cabulance
[2023-07-15 20:00] VITALS: BP 169/77; PULSE 88; RESP 16; TEMP 36.7; O2SAT 95
[2023-07-15] MEDS: SENNOSIDES 8.6 MG TABLET 17.2 MG PO (20:19)
[2023-07-15] MEDS: hydrOXYzine pamoate 25 MG CAPSULE PO (20:21)
[2023-07-16] MEDS: ACETAMINOPHEN 325 MG TABLET 650 MG PO (03:52)
[2023-07-16] MEDS: OXYCODONE IR 5 MG TABLET PO ×4 (03:52→14:15)
[2023-07-16 08:00] VITALS: BP 153/77; PULSE 86; RESP 16; TEMP 36.7; O2SAT 94
--- NOTE | 2023-07-16 08:07 | PM.DS.1 ---
History of Present Illness History of Present Illness Date Patient Seen: 07/16/23 Time Patient Seen: 08:00 Chief complaint: Lumbar TLIF Narrative: Patient is found today in her bed. Daughter is present. States that she had episode of pain last night when she tried to get up and use the bathroom. Patient states she was unaware that she required to request pain medication. She states she is no significant change since yesterday. She is aware that she [facility] today or tomorrow. Discharge Providers Provider Date of admission: 07/13/23 12:04 Discharge Date: 07/16/23 Primary care physician: Jackson Palomino MD Consults: 07/13/23 18:10 Consult to Occupational Therapy Evaluate & Treat Comment: Physician Instructions: Evaluate and treat Consult to Physical Therapy Evaluate & Treat Comment: Physician Instructions: Evaluate and Treat Discharge provider: Darren Whipple PA-C Summary Status at Discharge Cognitive/behavioral status at discharge: oriented Functional status at discharge: uses cane/walker Time Spent with Patient Time spent: Less than 30 minutes Exam Vital Signs (past 8 hours): Oxygen Delivery Method Nasal Cannula Oxygen Flow Rate 0 Narrative Exam Narrative: 5/5 strength in hip flexors, quadriceps, hamstrings, DF, PF, EHL bilaterally. Sensation to light touch intact throughout BLE. Calves soft, compressible, nontender. Dressing is clean dry and intact Resp Effort & Inspection: normal respiratory effort and able to speak in complete sentences [facility] Medical History Cataract Arthritis Surgical History History of appendectomy Social History household members: none Smoking Status: Former smoker alcohol intake: current Discharge Assessment & Plan Assessment and Plan Assessment: Status post TLIF Plan of Treatment: Continue PT, multimodal pain control, SCDs for VTE prophylaxis. D/c to SNF pending placement. Discharge Plan Discharge Plan Patient Disposition: SNF Transfer to: [facility] Discharge orders & Medications Prescriptions: New oxycodone 5 mg Tablet 5 mg PO Q4H PRN (Reason: Pain, Moderate (4-6)) Qty: 40 0RF docusate sodium 100 mg Capsule 100 mg PO BID Qty: 20 0RF acetaminophen 325 mg Tablet 650 mg PO Q6H PRN (Reason: Mild Pain (1-3)) Qty: 60 0RF hydroxyzine pamoate 25 mg Capsule 25 mg PO Q4HR PRN (Reason: Nausea And Vomiting) Qty: 40 0RF Discontinued acetaminophen 500 mg Tablet 1,000 mg PO Q6H PRN (Reason: Pain (Scale Score 4-6)) Follow up/Referrals: Jackson Palomino MD [Primary Care Provider] - Demarcus Diaz MD [Physician] - As previously scheduled (Follow up w/ Dr Diaz on 07/30/2023 @ 10:50 am at [facility] in [place].) Diet/Activity/Treatments Diet: Diet as Tolerated Activity: No deep bending or twisting at the waist. No lifting more than 10 pounds. Cold/Heat Therapy: Heating pad to low back as needed for pain. Skin/Wound/Dressing Care Report to your healthcare provider any signs of infection, such as:: chills, fever, night sweats, unusual drainage and unusual redness Dressing: May shower. Keep dressing as dry as possible. If dressing becomes wet or dirty, may remove and replace with clean, dry gauze. No bathing or otherwise soaking incisions. Do not apply any creams, lotions, or ointments to incisions. Visit Report/Discharge Packet Instructions: DI for Prescription Opioid Use, DI for Transforaminal Lumbar Interbody Fusion Stand Alone Forms: Patient Portal/API, Surgery Discharge Discharge Data Primary Care Provider: Jackson Palomino Quality VTE Deep Vein Thrombosis/Pulmonary Embolism Present on Admission: No
[2023-07-16] MEDS: DOCUSATE 100 MG CAPSULE PO (09:02)
--- NOTE | 2023-07-16 11:45 | PT.IPTN ---
Current Diagnoses Spondylolisthesis, lumbar region (07/13/23) Spinal stenosis, lumbar region with neurogenic claudication (07/13/23) Arthrodesis status (07/13/23) Surgery Performed Operation Date: 07/13/23 14:15 Actual Procedures p L3-4 TLIF - Demarcus Diaz MD Physical Therapy Treatment Note M2 PT-IP Current Condition Start: 07/14/23 11:51 Freq: NEEDED Status: Active Protocol: Document 07/14/23 11:51 AB (Rec: 07/14/23 12:24 AB [id number]) Physical Therapy Current Condition Current Condition Evaluation Date 07/14/23 Treatment Diagnosis s/p lumbar TLIF L3-L4 Onset Date 07/13/23 M3 PT-IP Subjective Start: 07/14/23 11:51 Freq: NEEDED Status: Active Protocol: Document 07/16/23 12:05 ZF (Rec: 07/16/23 12:23 ZF [id number]) Subjective Physical Therapy Visit Type Type Treatment Note Visit Start Time 11:45 Visit Stop Time 11:55 Total Visit Minutes 10 Notes Split treatment w/OT. Physical Therapy Visit Comments Patient Comments Pt sitting at EOB when approached for therapy. Agreeable to participate. M4 PT-IP Mobility and Gait Start: 07/14/23 11:51 Freq: NEEDED Status: Active Protocol: Document 07/16/23 12:05 ZF (Rec: 07/16/23 12:23 ZF [id number]) PT-Transfer Assessment Sit to and From Stand Sit to and from Stand Standby Assistance,1 Person Assistance,Use of Upper Extremities Equipment Transfer Assistive Device Gait Belt,Front Wheeled Walker Transfers Transfer Destination Chair Transfer Technique Stand Step Pivot Transfer Ability Level of Assist Standby Assistance,Use of Upper Extremities Comments Mobility Comments STS from EOB raised, w/2ww, SBA. Pt dems good adhearance to spinal precautions. Amb in room to parked personal 4ww w/ SBA. Pt amb w/4ww in hallway, ~130' SBA. VC for appropriate proximity to AD for safety. Gait Assessment Gait Gait Assistance Required: Standby Assistance Distance (Feet) 130 Assistive Devices Assistive Device Gait Belt,4 Wheeled Walker Gait Deviations General Gait Pattern Decreased Stride Length Factors Limiting Gait Function Factors Limiting Gait Function Decreased Activity Tolerance, Decreased Strength Comments Gait Comments See mobility comments. PT-Balance Assessment Sitting Balance and Reactions Static Sitting Balance Ability Normal Dynamic Sitting Balance Ability Good Standing Balance and Reactions Static Standing Balance Ability Good Dynamic Standing Balance Ability Good Device Used 4WW M5 PT-IP Objective Assessments Start: 07/14/23 11:51 Freq: NEEDED Status: Active Protocol: Document 07/14/23 11:51 AB (Rec: 07/14/23 12:24 AB [id number]) Orientation Orientation/Cognition Level of Alertness Alert Orientation Name,Age,Birthday,Month,Date, Year,Day of Week,Place, Situation Language Function Ability No Deficits Noted Safety Awareness Understands Safety Issues Memory Description No Deficits Noted Gross Range of Motion Upper Extremity ROM Assessment Within Functional Limits Lower Extremity ROM Assessment Within Functional Limits Strength Upper Extremity Strength Assessment Within Functional Limits Lower Extremity Strength Assessment Within Functional Limits M6 PT-IP Treatment Start: 07/14/23 11:51 Freq: NEEDED Status: Active Protocol: Document 07/16/23 12:05 ZF (Rec: 07/16/23 12:23 ZF [id number]) Physical Therapy Treatment Education Education Provided Precautions,Safety M7 PT-IP Assessment and Plan Start: 07/14/23 11:51 Freq: NEEDED Status: Active Protocol: Document 07/16/23 12:05 ZF (Rec: 07/16/23 12:23 ZF [id number]) PT Summary Assessment and Plan Potential Rehabilitation Potential Good Summary Impairments Pain,ROM,Strength,Balance,Bed Mobility,Transfers,Gait, Activity Tolerance Progress Towards Goals Progressing Toward Goals Assessment Summary Amada participates w/therapy today w/o complaints of pain. She is SBA for all mobility for safety. Recommending SNF to ensure adherance to spinal precautions. Goals Bed Mobility Goal Standby Assistance Transfer Goal Independent,Front Wheeled Walker,Four Wheeled Walker Gait Goal Independent,Front Wheel Walker ,Four Wheel Walker Gait Distance 100 Other Goals Pt to perform transfer with LRAD to show improving level of function. Pt to ambulate 100ft or more independently with LRAD to show improving tolerance to activity. Days to Meet Goals 5 Frequency of Treatment Frequency Of Treatment Twice a Day Treatment Plan Physical Therapy Treatment Plan Bed Mobility Training,Transfer Training,Gait Training, Therapeutic Exercise,Balance Retraining,Post Op Education, Discharge Planning,Hot or Cold Pack,Neuromuscular Re-ed, Coordination Retraining,Manual Therapy Other Recommendations and Next Treatment Continue gait training w/pt's Focus personal 4ww. Precautions Lumbar Precautions Log Roll,No Twisting,Limit Bending,Lifting Restriction of 10 lbs,Gait Belt above Incisional Area Weight Bearing Status Weight Bearing Status Weight Bear as Tolerated Recommendations To Nursing Amount of Assist Needed 1 Person Assist Discharge Recommendations PT Discharge Recommendations SNF Rehab Transportation Needs at Discharge Wheelchair/Cabulance
--- NOTE | 2023-07-16 12:40 | OT.IP.TRT ---
Current Diagnoses Spondylolisthesis, lumbar region (07/13/23) Spinal stenosis, lumbar region with neurogenic claudication (07/13/23) Arthrodesis status (07/13/23) Surgery Performed Operation Date: 07/13/23 14:15 Actual Procedures p L3-4 TLIF - Demarcus Diaz MD Occupational Therapy Treatment Note M2 OT-IP Current Condition Start: 07/14/23 17:02 Freq: Status: Active Protocol: Document 07/14/23 16:10 [facility] (Rec: 07/14/23 17:16 [facility] [id number]) Occupational Therapy Current Condition Current Condition Evaluation Date 07/14/23 Treatment Diagnosis S/P L3-4 TLIF Diagnosis Onset Date 07/13/23 Post Operative Precautions Lumbar Precautions Log Roll,No Twisting,Limit Bending,Lifting Restriction of 10 lbs,Gait Belt above Incisional Area M3 OT- IP Subjective and Pain Start: 07/14/23 17:02 Freq: Status: Active Protocol: Document 07/16/23 12:00 [facility] (Rec: 07/16/23 12:59 [facility] [id number]) OT- Subjective Occupational Therapy Visit Type Type Treatment Note Visit Start Time 12:00 Visit Stop Time 12:40 Total Visit Minutes 40 Occupational Therapy Visit Comments Patient Comments Pt needing encouragement to take a shower. Patient/Caregiver Goals TO get better. OT Pain Assessment Pain When Pain Assessed At Rest Pain Present Pain Present Pain Reported Location Lower Back Intensity 5 Scale Used Numeric (0 - 10) M4 OT- IP ADL's Start: 07/14/23 17:02 Freq: Status: Active Protocol: Document 07/16/23 12:00 [facility] (Rec: 07/16/23 12:59 [facility] [id number]) OT ITD-Myal-Hcqyngx General Evaluation Self-Feeding Ability Independent OT ADL-Grooming General Evaluation Grooming Ability Independent OT ADL-Oral Care General Eval Oral Care Ability Independent OT ADL-Dressing General Eval Lower Body Dressing Ability Maximum Assistance Areas Needing Assistance Socks Comments OT Dressing Comments Pt too tired from showering and needing assist for her socks at this time. OT ADL-Toileting General Evaluation Toileting Ability Standby Assistance Comments OT Toileting Comments Pt able to wipe after toileting. OT ADL-Bathing Bathing Type Bathing Type Shower General Evaluation Bathing Ability Moderate Assistance Areas Needing Assistance Wash/Dry Back,Wash/Dry Lower Extremities Comments OT Bathing Comments Pt will benefit from a shower chair and assist at this time. Pt needing MODA to asic verification engineer order to do her pericare needs. M6 OT- IP Functional Cognition Start: 07/14/23 17:02 Freq: Status: Active Protocol: Document 07/16/23 12:00 [facility] (Rec: 07/16/23 12:59 [facility] [id number]) Cognitive Factors Limiting Selfcare Function Cognitive Ability Level of Alertness Alert Patient Orientation Name,Place,Situation Attention Span Ability Capable of Focused Attention, Capable of Sustained Attention Ability to Follow Commands Able to Follow One Step Commands Cognitive Comments Cognitive Assessment Comments Pt motivated to get better. M7 OT- IP Mobility and Balance Start: 07/14/23 17:02 Freq: Status: Active Protocol: Document 07/16/23 12:00 [facility] (Rec: 07/16/23 12:59 [facility] [id number]) OT- Bed Mobility Assessment Supine to Sit Supine to Sit Assist Moderate Assistance OT-Transfer Assessment Sit to and From Stand Sit to and from Stand Moderate Assistance Transfers Transfer Ability Minimal Assistance Technique Transfer Destination Bed,Chair,Shower Stall,Toilet Transfer Technique Stand Step Pivot Devices Transfer Assistive Devices Gait Belt,Front Wheeled Walker Comments Mobility Comments MODA to stand from the shower chair and when having to push up from lower surfaces to stand to the FWW/4ww. Pt needing ABIGIAL to help step over the threshold of the shower. OT- Balance Assessment Sitting Balance and Reactions Static Sitting Balance Ability Normal Dynamic Sitting Balance Ability Good Standing Balance and Reactions Static Standing Balance Ability Good Dynamic Standing Balance Ability Fair M9 OT- IP Assessment and Plan Start: 07/14/23 17:02 Freq: Status: Active Protocol: Document 07/16/23 12:00 [facility] (Rec: 07/16/23 12:59 [facility] [id number]) OT Summary Assessment and Plan Potential Rehabilitation Potential Good Analytic Complexity at Evaluation Low Summary OT Impairments Pain,Balance,Functional Mobility,Dressing,Toileting, Bathing,Toilet Transfers, Shower Transfers Progress Towards Goals Progressing Toward Goals Assessment Summary Pt still needing MODA to come to stand and assist to help get upright from sidelying. Pt will continue to benefit from continued practice of LB dressing equipment needs and transitions and greatly benefit from skilled rehab. Goals Dressing Goal Independent Toileting Goal Independent Bathing Goal Independent Toilet Transfer Goal Independent Shower Transfer Goal Independent Days to Meet Goals 10 Frequency of Treatment Frequency Of Treatment Once a Day Treatment Plan OT Treatment Plan ADL Training,Functional Mobility,Patient/Family Education,Discharge Planning Discharge Recommendations OT Discharge Recommendations SNF Rehab Home Equipment Needs shower chair Transportation Needs at Discharge Wheelchair/Cabulance
--- NOTE | 2023-07-16 14:57 | CM.DPC ---
DCP Cont.\ Reviewed EMR and team rounds for status updates. Most of the day spent trying to obtain a SNF rehab auth from [employer] which has been pending since yesterday despite pt already having been accepted at [facility]. Updated pt/family, clinicals/med list/script faxed to . Pt will d/c at 3:00pm today. [employer] Auth# [id number]
--- NOTE | 2023-07-16 14:59 | PC.NURSE ---
Pt is packed up and ready to go with family at the bedside. IV has been removed. Dressing to back surgery site has been changed to a Coversite. Pt has showered. Called report to Amanda Mccarthy RN at [facility] and gave Pt update. No further questions. Pt ready for transfer when transport arrives.
--- NOTE | 2023-07-16 15:14 | PC.NURSE ---
Pt out via w/c by [employer] personnel with family and all belongings.
== END 2023-07-16 15:14 | DRG 455 ==
PROVIDERS: Admitting Provider Orthopaedic Surgery Orthopaedic Surgery of the Spine; PCP Family Medicine; Referring Provider Orthopaedic Surgery Orthopaedic Surgery of the Spine; Visit Provider Orthopaedic Surgery Orthopaedic Surgery of the Spine
PROC: 0SG00AJ Fusion of Lumbar Vertebral Joint with Interbody Fusion Device, Posterior Approach, Anterior Column, Open Approach (ICD-10-PCS; principal; 2023-07-13 14:15)
DX: M48.062 Spinal stenosis, lumbar region with neurogenic claudication (principal); M51.26 Other intervertebral disc displacement, lumbar region; M43.16 Spondylolisthesis, lumbar region; Z87.891 Personal history of nicotine dependence
CPT/HCPCS: 72100; 76000; 94762; 97116; 97161; 97165; 97530; 97535; C1713; C1831; C9290; J0171; J0690; J1170; J2250; J2704; J3010

== ENCOUNTER 2024-01-27 08:59 | Inpatient (IN) | payer MEDICARE, SELFPAY ==
[2023-07-13 12:19] VITALS: BMI 28.3
[2024-01-26 11:40] VITALS: BMI 31.6
[2024-01-27] VITALS (15 sets, daily range): BP systolic 127–161; BP diastolic 66–97; PULSE 86–113; RESP 11–19; TEMP 36.3–37.2; O2SAT 93–99; BMI 29.7
--- NOTE | 2024-01-27 06:00 | DI.RAD.S_ITS ---
PROCEDURE: XR KNEE LT 1TO2V INDICATIONS: TKA TECHNIQUE: 2 view(s) of the knee acquired. COMPARISON: None. FINDINGS: Bones: Patient is status post knee joint arthroplasty. Hardware components are in expected positions. Visualized bony structures are intact. Soft tissues: Overlying postoperative changes are noted. IMPRESSION: Expected post-operative appearance of a knee arthroplasty. Dictated by: Carlin Jensen M.D. on 01/27/2024 at 15:41 Approved by: Carlin Jensen M.D. on 01/27/2024 at 15:41
[2024-01-27] MEDS: CELECOXIB 200 MG CAPSULE 400 MG PO (10:03)
[2024-01-27] MEDS: ACETAMINOPHEN 325 MG TABLET 975 MG PO (10:05)
[2024-01-27] MEDS: LACTATED RINGERS 1,000 ML 42 ML IV ×2 (10:07→13:06)
--- NOTE | 2024-01-27 10:37 | PM.PREOP ---
Pre-operative Note Interval Note History & Physical reviewed/Exam performed by Physician: Yes Changes to H&P: No
[2024-01-27] MEDS: CEFAZOLIN 2 GM/100 ML PREMIX 100 ML IV ×2 (11:25→19:52)
[2024-01-27] MEDS: TRANEXAMIC ACID 1,000 MG VIAL 1000 MG INJ ×2 (11:34→13:10)
--- NOTE | 2024-01-27 11:44 | SUR.OPER ---
Supine on padded OR bed. Pillow under head, arms secured on padded armboards <90 degree abduction. Safety belt across torso. Non-operative leg secured with tape over blanket over lower leg. Operative leg secured in DeMayo positioner. Foam padded brace at thigh of operative leg.
[2024-01-27] MEDS: BUPIVACAINE 0.25% (PF) 60 ML, EPINEPHrine 0.15 MG INJ (11:50)
[2024-01-27] MEDS: BUPIVACAINE LIPOSOME 266 MG/20 ML VIAL INJ (12:56)
--- NOTE | 2024-01-27 14:09 | PM.OP.1 ---
Operative Date/Time/Diagnoses Date of procedure: 01/27/24 Time of procedure: 12:00 Pre-op diagnosis: Left knee arthritis Post-op diagnosis: same Procedure & Clinicians Procedure: Left total knee arthroplasty CPT code 66319 Robotic assisted surgery [id number] Computer-assisted navigation [id number] Same procedure as scheduled: Yes Indications: The patient has significant pain associated with osteoarthritis of the left knee. It is associated with morning stiffness. Pain interferes with daily normal function including ambulation standing and any activities that are weight-bearing. It interferes with sleep. There is crepitation with range of motion. There is marked joint line tenderness. X-rays show significant levels of osteoarthritis. Valgus arthritis, previous attempted previous conservative treatment has been rendered. The patient has failed exercise program, medications and previous injections. Patient is indicated for total knee arthroplasty. The risks and benefits of the procedure have been discussed with the patient and given the opportunity to ask questions. The risks of surgery include but are not limited to infection, malunion, nonunion, persistence of pain, damage to nerves and blood vessels, posttraumatic arthritis, DVT, PE, cardiopulmonary complications and . The patient expressed a thorough understanding of the risks and benefits of surgery and has elected to proceed. Consent was signed. During the operation, the services of a physician surgical sales representative were medically indicated and necessary to provide the exposure of the operative site for the surgical procedure and to maintain the limb in a proper position to carry out the operation safely and efficiently. Without a qualified dental chairside assistant being present this would extended the operative procedure and made the procedure technically more difficult to perform. Surgeon: Barbi Beckwith Cutting Torch Operator: Loreto Neville Anesthesia Type: General, Peripheral nerve block and Local Operative Notes Findings: Valgus knee arthritis end-stage, full-thickness cartilage loss large osteophytes Closure Type: primary Specimen(s): none sent Prosthetic devices, grafts, tissues, transplants, or devices: Valdez and Nephew journey 2 BCS total knee Femur cobalt chromium size 5 left Journey tibia size 3 left Polyethylene 10 mm Patella 32 mm x 7.5 mm round Estimated Blood Loss (mL): 50 Blood products transfused: none Tourniquet time (min): 85 Procedure in detail: Patient was seen in the preoperative area where the patient and site of surgery were identified in the operative knee was marked informed consent confirmed. This was the left knee. Patient received the appropriate preoperative antibiotics this was 2 g of Ancef. And other preoperative medications and was taken to the operating room placed on operating table in the supine position. No spinal anesthetic was utilized due the patient's previous spinal fusion. General anesthetic and peripheral nerve block were utilized. The operative extremity was then prepped and draped in the standard sterile fashion with a nonsterile tourniquet high on the thigh. Patient was placed on the green foam bolsters. A lateral post was placed at the level of the proximal thigh /trochanter area as a lateral post. Formal time-out procedure was performed confirming the patient's side and site of surgery and administration of appropriate preoperative antibiotics and implants were in the room accounted for. All were in agreement. Patient received a preoperative dose of tranexamic acid and then a 2nd dose at tourniquet release Patient was prepped and draped in the standard sterile fashion and the foot was placed into the leg rivera. This was taken into high flexion and the incision was marked out over the anterior knee to the level of the medial tubercle tubercle. The Esmarch was then used for exsanguination and the tourniquet was inflated to 250 mmHg. Was made through the skin and subcutaneous tissue in high flexion this was then brought down into 30? of flexion for the medial parapatellar arthrotomy. A marker pen was used to papo the arthrotomy site for later repair. Joint fluid was evacuated. The anterior osteophytes and soft tissues were removed. Routine medial release was initially made along the medial proximal tibia with Bovie. The patella was 1st cut using the saw sized and prepped and then subluxed throughout the case and protected. The leg was then taken into extension and the patella was everted and the patella was cut to accommodate the patellar button. This was sized to a 32 mm button for a 7.5 mm thickness to recreate the original dimensions of the patella. Poly was removed and the protector replaced and the patella was subluxed and the knee was taken back up into flexion and attention was returned to the femur. Then the rotational landmarks of Whitesides line and the trans epicondylar axis were marked on the femur with electrocautery. ACL and PCL were released. Then the Cori robotic pins were placed into the femur and tibia and the race set up. Landmarks were established and the robotic planning was commenced. Plan was developed and improved and adjusted as necessary to create a balanced knee. Initial and most 4? of valgus. This was corrected to between 0 and 1 degree of valgus with the plan correction. 4? of femoral external rotation were utilized. The plan was taken and improved for balanced extension and flexion gaps 1-2 mm. pie crusting of the ITB band was completed as the she was tight laterally. Plan was satisfactory the bur was used to remove the distal femur then the 5 in 1 cutting block was applied complete the femur cuts. Attention was then turned to the tibia and the tibial resection was made in accordance with the robotic planning. The trials were placed. And the femoral notch was cut a standard fashion using Reamer then slap hammer. The knee was trialed and the checked. Knee was balanced in flexion extension. Range of motion 0-135 degrees was obtained. The rotation femoral trial was marked Bovie on the bone and checked with a long galen. The tibia was then finished with a drill and flange cut and then The trial implants were removed. Then in extension the posterior capsule was injected with a mixture of 40 mL of 0.25% Marcaine and 20 mL of Exparel care to avoid excessive injection posterior laterally. The remainder of this was saved for the capsule and subcutaneous tissue and placed during cement curing. The wound and bone was irrigated with pulsatile lavage. This was then dried with a sponge. The components were verified and opened and the cement was mixed. Cement was applied to the components and then to the bone then the tibia was cemented in place 1st followed by the femur then the patella. Excess cement was removed. With care looking around the back of the knee. Remainder of the injection was injected around the capsule. trial poly was placed back in the leg was placed into extension for the patellar cementing. After this was cured approximately 15 minutes later and the dilute Betadine solution was placed for at least 3 minutes in the wound this was then irrigated out and the final poly was placed. This was a 10 mm mm poly. The tourniquet was released hemostasis was achieved. Final 1g of tranexamic acid was given IV at the time of tourniquet release. After tourniquet released it was felt of the patella was tracking laterally. Lateral release was completed. Which normalized patellar tracking. The capsule was closed with 1. Ethibond suture. Followed by a running Quill stitch. Subcutaneous layer was closed with 3-0 Vicryl suture. Skin was closed with a running V lock suture Stratafix Monocryl type suture and Dermabond. An Aquacel dressing was placed . An Kai wrap was applied. Anesthetic was terminated the patient was woken from anesthesia and taken to recovery room in good condition. There no immediate complications from this procedure. The patient will be maintained on a standard total knee replacement protocol with weight-bearing as tolerated. Complications: none Post-operative Condition: stable Disposition: Acute Care Plan for aftercare: Inpatient admission. This patient has multiple medical comorbidities and mobility difficulties lives alone require correction placement. She required the same after recent lumbar fusion surgery. Anticipated inpatient admission with monitoring, physical therapy and IV pain medications as needed until can be appropriately discharged to correction facility. Aspirin 81 mg b.i.d. for DVT prophylaxis x6 weeks postop. Routine postop total knee arthroplasty incision care. May shower with Aquacel dressing.
[2024-01-27] MEDS: ACETAMINOPHEN 325 MG TABLET 650 MG PO ×2 (15:20→21:37)
[2024-01-27] MEDS: LACTATED RINGERS 1,000 ML 100 ML IV ×2 (15:21→21:28)
--- NOTE | 2024-01-27 15:33 | PT.IIE ---
Current Diagnoses Bilateral primary osteoarthritis of knee (01/27/24) Unilateral primary osteoarthritis, left knee (01/27/24) Other specified joint disorders, unspecified knee (01/27/24) Surgery Performed Operation Date: 01/27/24 10:45 Actual Procedures p Total Knee Arthroplasty - Robot(Left) - Barbi Beckwith MD Surgical History (Last Updated 01/18/24 @ 10:16 by Laquita Lyons RN) History of appendectomy History of arthroscopy of right knee History of fusion of lumbar spine (07/13/23) History of surgery Hx of bilateral cataract extraction (2010) Hx of tonsillectomy Medical History (Last Updated 01/18/24 @ 10:16 by Laquita Lyons RN) Arthritis Cataract Osteoarthritis Physical Therapy Inpatient Evaluation/Re-Eval M1 PT/OT-IP Prior Functional Status Start: 01/27/24 16:45 Freq: NEEDED Status: Active Protocol: Document 01/27/24 15:33 AB (Rec: 01/27/24 17:05 AB [id number]) Medical Review Prior Functional Status Medical History Reviewed Yes Communication able to make needs known Mobility and Gait pt stated that she was modified independent with all mobilities and ambulation without AD but started using a SPC ~ 1 month ago and switched to a 4WW ~ 1 week ago due to increasing L knee pain Social History Household Members none Living Arrangements Alf Facility Number of Floors (Floors) One Floor Number of Stairs To Enter/Railing? pt lives at [facility] no steps to enter Home Environment High Toilet,Walk in Shower Home Equipment Front Wheel Walker,Four Wheel Walker,Straight Cane,Hand Held Shower,Grab Bars Near Toilet, Grab Bars In Shower Additional Social History Comment per daughter, pt plans to go to SNF for rehab pt has an adjustable bed at home M2 PT-IP Current Condition Start: 01/27/24 16:45 Freq: NEEDED Status: Active Protocol: Document 01/27/24 15:33 AB (Rec: 01/27/24 17:05 AB [id number]) Physical Therapy Current Condition Current Condition Evaluation Date 01/27/24 Treatment Diagnosis s/p L TKA; difficulty in walking Onset Date 01/27/24 M3 PT-IP Subjective Start: 01/27/24 16:45 Freq: NEEDED Status: Active Protocol: Document 01/27/24 15:33 AB (Rec: 01/27/24 17:05 [id number]) Subjective Physical Therapy Visit Type Type Initial Evaluation Visit Start Time 15:33 Visit Stop Time 16:45 Number of FAMILY CONSULTANT Visits 0 Physical Therapy Visit Comments Patient Comments agreeable to do PT Therapy Pain Assessment Pain When Pain Assessed At Rest Location Left Knee Intensity 5 Scale Used Numeric (0 - 10) Pain Behaviors Guarding,Holding Area Pain Management Techniques Apply Cold,Distraction, Modification of Treatment,Re- positioning,Timing of Activity with Medications M4 PT-IP Mobility and Gait Start: 01/27/24 16:45 Freq: NEEDED Status: Active Protocol: Document 01/27/24 15:33 AB (Rec: 01/27/24 17:05 [id number]) PT-Bed Mobility Assessment Supine to Sit Supine to Sit Standby Assistance,Head of Bed Elevated,Bedrails Sit to Supine Sit to Supine Maximum Assistance,Head of Bed Elevated PT-Transfer Assessment Sit to and From Stand Sit to and from Stand Moderate Assistance,Maximum Assistance,1 Person Assistance ,Use of Upper Extremities Equipment Transfer Assistive Device Gait Belt,Front Wheeled Walker Orthotic/Prosthetic Devices or Brace: No Transfers Transfer Destination Bedside Commode Transfer Technique Stand Step Pivot Transfer Ability Level of Assist Moderate Assistance,Maximum Assistance,1 Person Assistance ,Use of Upper Extremities Comments Mobility Comments pt supine in bed and daughter in room. obtained PLOF and home set up from pt and daughter. daughter stated that pt plans to go to SNF rehab and that ortho doctor is aware. post-op folder provided and reviewed contents . pt c/o dizziness even prior to mobility and stated that it is due to the anaesthesia. pt completed heel slides prior to mobility. BP in supine: 168/76 O2 sat 100% and OH: 86 completed supine to sit SBA with HOB elevated and pt used bed rail to assist. pt was able to sit on EOB SBA to CGA. stated that she needs to be changed and wants to use the toilet. bedside commode positioned next to pt. pt completed sit to stand mod to max A and max cues and step transfer to bedside commode using FWW mod to max A and max cues. cued for L quads activation. pt needs assistance with brief management and hygiene care. completed sit to stand from bedside commode mod to max A and max cues. needing 2 attempts to complete task as pt can easily gets anxious and has difficulty following directions. pt step transferred back to EOB mod to max A and max cues using FWW. pt rested. pt agreed to ambulate and completed sit to stand from the bed mod mod to max A and max cues and ambulation 8 ft using FWW mod to max A more of max A towards end of ambulation with pt c/o fatigue. pt sat on EOB. completed sit to supine max A for LE elevation to bed. positioned pt on the bed. Left pt with NAC. Gait Assessment Gait Gait Assistance Required: Moderate Assistance,Maximum Assistance Distance (Feet) 8 Able to Maintain Weight Bearing Status Yes During Gait Assistive Devices Assistive Device Gait Belt,Front Wheeled Walker Orthotic/Prosthetic Devices or Brace: No Gait Deviations General Gait Pattern Antalgic,Decreased Stride Length,Decreased Feet Clearance,Step-to Gait Factors Limiting Gait Function Factors Limiting Gait Function Decreased Activity Tolerance, Decreased Strength,Difficulty Following Directions,Limited Range of Motion,Pain,Poor Balance,Poor Safety Awareness PT-Balance Assessment Sitting Balance and Reactions Static Sitting Balance Ability Good Dynamic Sitting Balance Ability Good Standing Balance and Reactions Static Standing Balance Ability Fair Dynamic Standing Balance Ability Poor Device Used FWW M5 PT-IP Objective Assessments Start: 01/27/24 16:45 Freq: NEEDED Status: Active Protocol: Document 01/27/24 15:33 AB (Rec: 01/27/24 17:05 AB [id number]) Orientation Orientation/Cognition Level of Alertness Alert Orientation Name,Place,Situation Language Function Ability Hard of Hearing Safety Awareness Decreased Safety Awareness Memory Description Short Term Impaired Gross Range of Motion Lower Extremity ROM Assessment Left Impaired Impairments L knee flexion: ~ 50 deg L knee exteison: ~ 20 deg less to 0 Strength Lower Extremity Strength Assessment Left Impaired Hip 4-/5 Knee 3+/5 Sensation Assessment Sensation Gross Sensation WNL Muscle Tone Muscle Tone WNL Yes M6 PT-IP Treatment Start: 01/27/24 16:45 Freq: NEEDED Status: Active Protocol: Document 01/27/24 15:33 AB (Rec: 01/27/24 17:05 AB [id number]) Physical Therapy Treatment Exercises Exercises Heel Slides Education Education Provided Precautions,Weight Bearing Status,Post-Op Packet,Safety M7 PT-IP Assessment and Plan Start: 01/27/24 16:45 Freq: NEEDED Status: Active Protocol: Document 05/29/24 15:33 AB (Rec: 01/27/24 17:05 AB [id number]) PT Summary Assessment and Plan Potential Rehabilitation Potential Fair Status of Condition at Evaluation Evolving Summary Impairments Pain,ROM,Strength,Balance, Coordination,Sensation,Tone, Cognition,Bed Mobility, Transfers,Gait,Activity Tolerance Assessment Summary pt is an 83 y/o F s/p L TKA POD 0. pt is WBAT on LLE. pt requiring mod to max A with mobility using FWW and max cues with all tasks. pt easily gets anxious affecting mobility and safety awareness. pt lives alone and will need assistance at this time. pt will benefit from SNF rehab to improve overall strength and mobility. will continue to assess progress. Goals Bed Mobility Goal Independent Transfer Goal Standby Assistance,Front Wheeled Walker Gait Goal Standby Assistance,Front Wheel Walker Gait Distance 200 Other Goals improve transfers and ambulation using LRAD ~ 250 ft mod I Days to Meet Goals 5 Frequency of Treatment Frequency Of Treatment Twice a Day Treatment Plan Physical Therapy Treatment Plan Bed Mobility Training,Transfer Training,Gait Training, Therapeutic Exercise,Balance Retraining,Post Op Education, Discharge Planning,Hot or Cold Pack,Neuromuscular Re-ed, Coordination Retraining,Manual Therapy Weight Bearing Status Weight Bearing Status Weight Bear as Tolerated Allowed Weight Bearing Amount (enter % LLE WBAT or #) (%) Recommendations To Nursing Amount of Assist Needed 1 Person Assist Discharge Recommendations PT Discharge Recommendations SNF Rehab Transportation Needs at Discharge Private Vehicle,Wheelchair/ Cabulance
[2024-01-27 16:38] LABS: MRSA (Nasal) PCR NOT DETECTED (Not Detect)
--- NOTE | 2024-01-27 18:54 | PC.ADMIT ---
[email or web address] Admission Note: The patient,Amada Ferguson,83 y/o, was given written information regarding hospital policies, unit procedures and contact persons. Patient's smoking status: Former smoker. Vital Signs - 8 hr 01/27/24 13:42 01/27/24 13:47 01/27/24 13:52 Temperature 97.9 F Pulse Rate 91 H 91 H 113 H Respiratory Rate 16 17 19 Blood Pressure 127/74 131/82 144/87 H Pulse Oximetry 98 99 99 Oxygen Delivery Method Nasal Cannula Nasal Cannula Nasal Cannula Oxygen Flow Rate 2 2 2 01/27/24 13:57 01/27/24 14:02 01/27/24 14:07 Temperature Pulse Rate 113 H 113 H 106 H Respiratory Rate 14 13 15 Blood Pressure 154/97 H 155/89 H 157/89 H Pulse Oximetry 99 99 98 Oxygen Delivery Method Nasal Cannula Nasal Cannula Room Air Oxygen Flow Rate 2 2 01/27/24 14:12 01/27/24 14:18 01/27/24 14:33 Temperature 98.5 F Pulse Rate 105 H 102 H 87 Respiratory Rate 16 11 L 17 Blood Pressure 137/85 147/83 H 146/79 H Pulse Oximetry 97 93 95 Oxygen Delivery Method Room Air Room Air Oxygen Flow Rate 0 01/27/24 15:00 01/27/24 15:30 01/27/24 17:17 Temperature 98.5 F Pulse Rate 91 H 86 89 Respiratory Rate 17 17 18 Blood Pressure 161/76 H 161/75 H 144/77 H Pulse Oximetry 95 95 96 Oxygen Delivery Method Oxygen Flow Rate 0 0 0 01/27/24 17:30 Temperature 97.9 F Pulse Rate 87 Respiratory Rate 18 Blood Pressure 149/70 H Pulse Oximetry 96 Oxygen Delivery Method Oxygen Flow Rate 0 Pt arrived in bed from PACU, inspected drsg to left knee, CDI per report drsg includes dermabond, aquacell, tegaderm and joanne wrap. Cooling and compression system in place. Oriented to room and call light system, bed low and locked, call light within reach, no further needs at this time
[2024-01-27] MEDS: FAMOTIDINE 20 MG TABLET PO (21:35)
[2024-01-27] MEDS: SENNOSIDES 8.6 MG TABLET 17.2 MG PO (21:35)
[2024-01-27] MEDS: ASPIRIN EC 81 MG TABLET PO (21:35)
[2024-01-28] MEDS: ACETAMINOPHEN 325 MG TABLET 650 MG PO ×4 (03:20→20:08)
[2024-01-28] MEDS: CEFAZOLIN 2 GM/100 ML PREMIX 100 ML IV (03:24)
[2024-01-28 05:45] LABS: Hematocrit 26.9 % (36-46); Hemoglobin 9.1 g/dL (12.0-16.0)
[2024-01-28] MEDS: polyethylene glycoL 3350 17 GM POWD.PACK PO (08:14)
[2024-01-28] MEDS: ASPIRIN EC 81 MG TABLET PO ×2 (08:15→20:11)
--- NOTE | 2024-01-28 08:48 | P.PN_ITS ---
Subjective Subjective Date Patient Seen: 01/28/24 Time Patient Seen: 08:48 Interval history: Patient's pain is moderate to severe. No fever or chills. No nausea or vomiting. No lightheadedness or shortness of breath. Exam Vital Signs (past 8 hours): Oxygen Delivery Method Room Air Oxygen Flow Rate 0 Narrative Exam Narrative: 83-year-old female resting comfortably in bed in no apparent distress. Dressing is clean, dry and intact. Motor functions intact bilateral lower extremities. Sensation grossly intact to light touch bilateral lower extremities. Const General: cooperative and comfortable Nutritional Appearance: average body habitus Orientation: alert Resp Effort & Inspection: normal respiratory effort and able to speak in complete sentences Objective Labs 01/28/24 04:00 Labs: Laboratory Results - last 24 hr 01/27/24 01/28/24 15:02 04:00 Hgb 9.1 L Hct 26.9 L Nasal Screen MRSA (PCR) Not detected PFS Medical History Osteoarthritis Cataract Arthritis Surgical History History of arthroscopy of right knee Hx of tonsillectomy History of surgery Hx of bilateral cataract extraction (2010) History of fusion of lumbar spine (07/13/23) History of appendectomy Social History household members: none Smoking Status: Former smoker alcohol intake: current Assessment & Plan Post-op Postoperative Procedures: Procedures Operation Date: 01/27/24 10:45 Actual Procedure Side Surgeon p Total Knee Arthroplasty - Robot Left Barbi Beckwith MD Postoperative day: 1 Postoperative status: doing well, marginal pain control and anemia Postoperative status narrative: Stable status post left total knee arthroplasty, acute blood loss anemia due to blood loss during surgery Postoperative plan: routine post-op care Postoperative plan narrative: Patient will be maintained on standard total knee replacement protocol with weight-bearing as tolerated Mobilize with physical therapy Aspirin 81 mg b.i.d. for DVT prophylaxis x6 weeks Multimodal pain management Monitor H&H Patient has multiple medical comorbidities and mobility difficulties. She lives alone. Patient will require nursing home facility placement Disposition, 2 days to nursing home facility
[2024-01-28 09:12] VITALS: BP 155/79; PULSE 83; RESP 18; TEMP 36.9; O2SAT 98
[2024-01-28] MEDS: OXYCODONE IR 5 MG TABLET PO (09:26)
--- NOTE | 2024-01-28 10:41 | PT.IPTN ---
Current Diagnoses Bilateral primary osteoarthritis of knee (01/27/24) Unilateral primary osteoarthritis, left knee (01/27/24) Other specified joint disorders, unspecified knee (01/27/24) Surgery Performed Operation Date: 01/27/24 10:45 Actual Procedures p Total Knee Arthroplasty - Robot(Left) - Barbi Beckwith MD Physical Therapy Treatment Note M2 PT-IP Current Condition Start: 01/27/24 16:45 Freq: NEEDED Status: Active Protocol: Document 01/27/24 15:33 AB (Rec: 01/27/24 17:05 AB [id number]) Physical Therapy Current Condition Current Condition Evaluation Date 01/27/24 Treatment Diagnosis s/p L TKA; difficulty in walking Onset Date 01/27/24 M3 PT-IP Subjective Start: 01/27/24 16:45 Freq: NEEDED Status: Active Protocol: Document 01/28/24 09:08 MB (Rec: 01/28/24 10:41 MB [id number]) Subjective Physical Therapy Visit Type Type Treatment Note Visit Start Time 09:08 Visit Stop Time 09:46 Number of PASSENGER ATTENDANT Visits 0 Physical Therapy Visit Comments Patient Comments Pt with daughter and ERROL nearby and she is agreeable to PT. Pt is apprehensive about urinary incontinence and asks for purewick to stay in when she gets up to chair and PT clears this with nsg. Therapy Pain Assessment Pain When Pain Assessed During Mobility Pain Present Pain Present Pain Reported Location Left Knee Intensity 8 Scale Used Numeric (0 - 10) Pain Management Techniques Distraction,Modification of Treatment,Re-positioning M4 PT-IP Mobility and Gait Start: 01/27/24 16:45 Freq: NEEDED Status: Active Protocol: Document 01/28/24 09:08 MB (Rec: 01/28/24 10:41 MB [id number]) PT-Bed Mobility Assessment Supine to Sit Supine to Sit Standby Assistance,1 Person Assistance,Head of Bed Elevated,Bedrails Scooting Scooting to Edge of Bed Standby Assistance Scooting Up and Down in Bed Standby Assistance PT-Transfer Assessment Sit to and From Stand Sit to and from Stand Contact Guard Assistance,1 Person Assistance,Use of Upper Extremities Equipment Transfer Assistive Device Gait Belt,Front Wheeled Walker Orthotic/Prosthetic Devices or Brace: No Transfers Transfer Destination Chair Transfer Technique Stepping Transfer Ability Level of Assist Minimal Assistance,1 Person Assistance,Use of Upper Extremities Comments Mobility Comments PT makes leg supervisor color paste mixing out of gait belt and places around pt 's left foot. With time and encouragement, pt is able to scoot to the right EOB and to move legs out to the right. Pt does use lower bed handle Gait Assessment Gait Gait Assistance Required: Minimum Assistance,1 Person Assist Distance (Feet) 1 Able to Maintain Weight Bearing Status Yes During Gait Assistive Devices Assistive Device Gait Belt,Front Wheeled Walker Orthotic/Prosthetic Devices or Brace: No Gait Deviations General Gait Pattern Antalgic,Decreased Stride Length,Decreased Feet Clearance,Step-to Gait Factors Limiting Gait Function Factors Limiting Gait Function Decreased Activity Tolerance, Decreased Strength,Difficulty Following Directions,Limited Range of Motion,Pain,Poor Balance,Poor Safety Awareness Comments Gait Comments Pt moves better today and PT provides encouragement and assists with moving the walker some PT-Balance Assessment Sitting Balance and Reactions Static Sitting Balance Ability Good Dynamic Sitting Balance Ability Good Standing Balance and Reactions Static Standing Balance Ability Fair Dynamic Standing Balance Ability Fair Device Used RW M5 PT-IP Objective Assessments Start: 01/27/24 16:45 Freq: NEEDED Status: Active Protocol: Document 01/27/24 15:33 AB (Rec: 01/27/24 17:05 AB [id number]) Orientation Orientation/Cognition Level of Alertness Alert Orientation Name,Place,Situation Language Function Ability Hard of Hearing Safety Awareness Decreased Safety Awareness Memory Description Short Term Impaired Gross Range of Motion Lower Extremity ROM Assessment Left Impaired Impairments L knee flexion: ~ 50 deg L knee exteison: ~ 20 deg less to 0 Strength Lower Extremity Strength Assessment Left Impaired Hip 4-/5 Knee 3+/5 Sensation Assessment Sensation Gross Sensation WNL Muscle Tone Muscle Tone WNL Yes M6 PT-IP Treatment Start: 01/27/24 16:45 Freq: NEEDED Status: Active Protocol: Document 01/28/24 09:08 MB (Rec: 01/28/24 10:41 MB [id number]) Physical Therapy Treatment Exercises Exercises Ankle Pumps,Gluteal Sets,Quad Sets,Heel Slides Education Education Provided Weight Bearing Status,Post-Op Packet,Safety Other Treatments Other Treatment Performed Once sitting, ed pt on LAQs Frequent cues during treatment for breathing, to close mouth and to breathe in through nose and out through nose and to make exhalations longer than inhalations M7 PT-IP Assessment and Plan Start: 01/27/24 16:45 Freq: NEEDED Status: Active Protocol: Document 01/28/24 09:08 MB (Rec: 01/28/24 10:41 MB [id number]) PT Summary Assessment and Plan Potential Rehabilitation Potential Fair Status of Condition at Evaluation Evolving Summary Impairments Pain,ROM,Strength,Balance, Coordination,Bed Mobility, Transfers,Gait,Activity Tolerance Assessment Summary Pt is slowly progressing with mobility and daughter is present during treatment. Pt does have some anxiety with mobility and rapid breathing and she does well with stopping to think about breathing and then continuing on. Goals Bed Mobility Goal Independent Transfer Goal Independent,Front Wheeled Walker Gait Goal Independent,Front Wheel Walker Gait Distance 100 Days to Meet Goals 5 Frequency of Treatment Frequency Of Treatment Once a Day Treatment Plan Physical Therapy Treatment Plan Bed Mobility Training,Transfer Training,Gait Training, Therapeutic Exercise,Balance Retraining,Post Op Education, Discharge Planning,Hot or Cold Pack,Neuromuscular Re-ed, Coordination Retraining,Manual Therapy Weight Bearing Status Weight Bearing Status Weight Bear as Tolerated Allowed Weight Bearing Amount (enter % LLE WBAT or #) (%) Recommendations To Nursing Amount of Assist Needed 1 Person Assist Discharge Recommendations PT Discharge Recommendations SNF Rehab Transportation Needs at Discharge Private Vehicle,Wheelchair/ Cabulance
--- NOTE | 2024-01-28 11:35 | OT.IP.EVAL ---
Current Diagnoses Bilateral primary osteoarthritis of knee (01/27/24) Unilateral primary osteoarthritis, left knee (01/27/24) Other specified joint disorders, unspecified knee (01/27/24) Surgery Performed Operation Date: 01/27/24 10:45 Actual Procedures p Total Knee Arthroplasty - Robot(Left) - Barbi Beckwith MD Past Medical History (Last Reviewed 01/28/24 @ 08:49 by Kareem Neff PA-C) Arthritis Cataract Osteoarthritis Surgical History (Last Reviewed 01/28/24 @ 08:49 by Kareem Neff PA-C) History of appendectomy History of arthroscopy of right knee History of fusion of lumbar spine (07/13/23) History of surgery Hx of bilateral cataract extraction (2010) Hx of tonsillectomy Occupational Therapy Inpatient Evaluation/Re-Eval M1 PT/OT-IP Prior Functional Status Start: 01/28/24 11:44 Freq: NEEDED Status: Active Protocol: Document 01/28/24 11:45 [facility] (Rec: 01/28/24 12:01 [facility] [id number]) Medical Review Prior Functional Status Medical History Reviewed Yes Communication able to make needs known Mobility and Gait pt stated that she was modified independent with all mobilities and ambulation without AD but started using a SPC ~ 1 month ago and switched to a 4WW ~ 1 week ago due to increasing L knee pain Activities of Daily Living and IADL's Pt states had pain with ADL and IADL needs. Social History Household Members none Living Arrangements [facility] Number of Floors (Floors) One Floor Number of Stairs To Enter/Railing? pt lives at [facility] no steps to enter Home Environment High Toilet,Walk in Shower Home Equipment Front Wheel Walker,Four Wheel Walker,Straight Cane,Hand Held Shower,Housekeeper Manager,Sock Aid,Grab Bars Near Toilet,Grab Bars In Shower Additional Social History Comment per daughter, pt plans to go to SNF for rehab pt has an adjustable bed at home M2 OT-IP Current Condition Start: 01/28/24 11:44 Freq: Status: Active Protocol: Document 01/28/24 11:45 [facility] (Rec: 01/28/24 12:01 [facility] [id number]) Occupational Therapy Current Condition Current Condition Evaluation Date 01/28/24 Treatment Diagnosis S/P L TKA Diagnosis Onset Date 01/27/24 M3 OT- IP Subjective and Pain Start: 01/28/24 11:44 Freq: Status: Active Protocol: Document 01/28/24 11:45 [facility] (Rec: 01/28/24 12:01 [facility] [id number]) OT- Subjective Occupational Therapy Visit Type Type Initial Evaluation Visit Start Time 11:05 Visit Stop Time 11:35 Occupational Therapy Visit Comments Patient Comments Pt agreed to stand up. Patient/Caregiver Goals TO go to skilled rehab. OT Pain Assessment Pain When Pain Assessed At Rest Pain Present Pain Present Pain Reported Location Left Knee Intensity 10 Scale Used Numeric (0 - 10) M4 OT- IP ADL's Start: 01/28/24 11:44 Freq: Status: Active Protocol: Document 01/28/24 11:45 [facility] (Rec: 01/28/24 12:01 [facility] [id number]) OT DCH-Diuv-Haoqkxw Comments OT Self-Feeding Comments Not at meal time, no issues anticipated. OT ADL-Grooming Comments OT Grooming Comments NOt performed. OT ADL-Oral Care Comments Oral Care Comments Not performed. OT ADL-Dressing General Eval Lower Body Dressing Ability Maximum Assistance Areas Needing Assistance Socks Comments OT Dressing Comments At this time pt not able to reach over to do LB dressing needs. Able to talk about LB dressing equipment and technique to dress the LLE first and take out last. OT ADL-Toileting General Evaluation Toileting Ability Total Assistance Comments OT Toileting Comments Pt using the purewick at this time. OT ADL-Bathing Comments OT Bathing Comments Sponge bath more appropriate at this time or use of rolling shower chair while here in the hospital. M5 OT- IP IADL's Start: 01/28/24 11:44 Freq: Status: Active Protocol: Document 01/28/24 11:45 [facility] (Rec: 01/28/24 12:01 [facility] [id number]) OT-Instrumental Activities of Daily Living Deficits IADL Deficits Identified Deficits Home Safety Awareness Awareness of Need for Assistance at Home Good Awareness Ability to Problem Solve Emergency Able to Problem Solve Situations Medication Management Medication Management Comments Pt is a bit groggy and would benefit from assist at this time. M6 OT- IP Functional Cognition Start: 01/28/24 11:44 Freq: Status: Active Protocol: Document 01/28/24 11:45 [facility] (Rec: 01/28/24 12:01 [facility] [id number]) Cognitive Factors Limiting Selfcare Function Cognitive Ability Level of Alertness Alert,Drowsy Patient Orientation Name,Place,Situation Attention Span Ability Capable of Focused Attention, Capable of Sustained Attention Ability to Follow Commands Able to Follow One Step Commands with Increased Time, Able to Follow One Step Commands with Repetition Cognitive Comments Cognitive Assessment Comments Pt needing lots of encouragement and able to follow commands. Pt needing vc for hand and leg placement when coming up to stand from the recliner to the FWW. OT- Vision and Hearing OT- Vision Assessment Visual Acuity Glasses All The Time Visual Attentiveness WFL Occular Pursuits WFL M7 OT- IP Mobility and Balance Start: 01/28/24 11:44 Freq: Status: Active Protocol: Document 01/28/24 11:45 [facility] (Rec: 01/28/24 12:01 [facility] [id number]) OT-Transfer Assessment Sit to and From Stand Sit to and from Stand Maximum Assistance Devices Transfer Assistive Devices Gait Belt,Front Wheeled Walker Comments Mobility Comments Pt needing vc to scoot forwards in the recliner with her arm on the armrest. Pt able to recall to slide her LLE out and push up to stand. Pt needing MOD/MAX A to stand as pt tend to stop during the transition and educated to use tighten her legs all the way to standing. Pt able to take a couple small steps forwards and then back down to the recliner with MAX Ax1. BP supine 138/78, sitting 111/ 58 after standing 104/53 and feeling dizzy, reclined back in th recliner 120/59- nursing notified. OT- Balance Assessment Sitting Balance and Reactions Static Sitting Balance Ability Good Dynamic Sitting Balance Ability Fair Standing Balance and Reactions Static Standing Balance Ability Poor Dynamic Standing Balance Ability Poor M8 OT- IP Objective Assessments Start: 01/28/24 11:44 Freq: Status: Active Protocol: Document 01/28/24 11:45 [facility] (Rec: 01/28/24 12:01 [facility] [id number]) OT Gross Range of Motion Upper Extremity Range of Motion Assessment Within Functional Limits OT Strength Upper Extremity Strength Assessment Within Functional Limits M9 OT- IP Assessment and Plan Start: 01/28/24 11:44 Freq: Status: Active Protocol: Document 01/28/24 11:45 [facility] (Rec: 01/28/24 12:01 [facility] [id number]) OT Summary Assessment and Plan Potential Rehabilitation Potential Good Analytic Complexity at Evaluation Low Summary OT Impairments Pain,Range of Motion,Strength, Balance,Functional Mobility, Grooming,Dressing,Toileting, Bathing,Toilet Transfers, Shower Transfers,Activity Tolerance Progress Towards Goals Slow Progress due to Pain,Slow Progress due to Medical Issues,Slow Progress due to Activity Tolerance Assessment Summary Pt low complexity and main barriers pain, difficulty with transitions, will benefit from practice of ADL equipment and will greatly benefit from skilled rehab. Pt is very motivated and pleasant. Continue to see pt for OT to help work towards independence with ADL and mobility needs. Goals Self-Feeding Goal Independent Grooming Goal Independent Dressing Goal Independent,Housekeeper Manager,Sock Aid Toileting Goal Independent Bathing Goal Independent Toilet Transfer Goal Independent Shower Transfer Goal Independent Days to Meet Goals 25 Frequency of Treatment Frequency Of Treatment Once a Day Treatment Plan OT Treatment Plan ADL Training,Functional Mobility,Patient/Family Education,Discharge Planning Other Treatment Recommendations and Next Transfer to [facility] with MODA x1. Treatment Focus Discharge Recommendations OT Discharge Recommendations SNF Rehab Home Equipment Needs shower chair, long handled brush/sponge Transportation Needs at Discharge Wheelchair/Cabulance
--- NOTE | 2024-01-28 13:34 | CM.DANOTE ---
DCP Assessment Note: Pt is a 83yo female, resident of [place], is is here status/post TKA. Pt lives at [facility] on [address] [facility] [address]. Pt's Primary Care Provider is Dr. Jackson Palomino and insurance is [employer] Medicare OCN. Reviewed chart and team rounds for pt's medical status and initial discharge needs. DCP met w/patient at bedside; introduced self and role. Present in the room is pt's daughter and DPOA, Larissa and her . Pt was found in bed, alert and oriented, cooperative with assessment. Pt confirmed preference and eagerness to discharge to [facility] as she has been admitted there in the past (July 2023). Pt's daughter supportive of dc plan and hopes to be kept updated of dc plans as she lives in [place] and will return at time of transfer. Plan: PT/OT recommending SNF, pt will be Medicare Ready after 3 midnights on 01/29. [facility] still reviewing. CM team will plan to follow clinical course closely for assessment of need and coordination of discharge plan. PATRICK Agosto Discharge Planning/Care Management Advanced directive,confirm from FACILITY Start: 01/27/24 14:43 Freq: Q24H Status: Active Protocol: Document 01/27/24 14:43 MS (Rec: 01/27/24 15:09 MS [id number]) Advance Directive, confirm on record Time 15:09 Person contacted daughter Larissa Copy received No CM Discharge Assessment Start: 01/28/24 13:18 Freq: Status: Active Protocol: Document 01/28/24 13:32 MW (Rec: 01/28/24 13:34 MW [id number]) Discharge Planning Assessment Assigned Patent Clerk TYRESE Workman DPISRAEL/Assigned Designee Name Benitez Garibay Contact Information [phone] Advance Directives? Yes Advance Directives on File No History Provided By Patient,Family Member,Medical Record Has Patient been admitted in last 30 No days? Prior Living Arrangements [facility] Facility Comment Pt lives at [facility] on [facility] ([place]). Household Members none Type of transporation used prior to Relies on Others admit Facility Name Admitted From: [facility] Willing to Return to Facility? Yes Independent with ADL's Yes Is patient alert and oriented? Yes Caregiver for Another No DME Already Rented / Owned FWW / Walker Patient/Family Preference [facility] Comment Pt has preference for [facility], was previously admitted there in July 2023. Barriers to Discharge No Discharge Plan [facility] Referrals Initiated [facility] Additional Comment [facility] is reviewing for acceptance-pending. If patient plan is SNF: Has PASSR been Yes completed? Whiteboard Updated in Patient Room with Yes name and ext. # of Patent Clerk Comment [phone] Please Provide Date Initial DC 01/28/24 Assessment Was Performed Next Review Type Continued Stay Review
[2024-01-28] MEDS: HYDROMORPHONE 0.5 MG INJ IV (15:06)
[2024-01-28] MEDS: ONDANSETRON 4 MG/2 ML INJ IV (15:14)
[2024-01-28] MEDS: TRAMADOL 50 MG TABLET 100 MG PO (15:47)
[2024-01-28] MEDS: TRAMADOL 50 MG TABLET PO (20:10)
[2024-01-28] MEDS: SENNOSIDES 8.6 MG TABLET 17.2 MG PO (20:10)
[2024-01-28] MEDS: FAMOTIDINE 20 MG TABLET PO (20:11)
[2024-01-28 20:40] VITALS: BP 129/60; PULSE 80; RESP 18; TEMP 36.7; O2SAT 97
[2024-01-29] MEDS: ACETAMINOPHEN 325 MG TABLET 650 MG PO ×4 (01:44→19:03)
[2024-01-29] MEDS: TRAMADOL 50 MG TABLET PO ×3 (01:45→19:03)
[2024-01-29 05:54] LABS: Add Manual Diff / Slide Review NO; Basophils Absolute Auto 0 /uL (0-100); Basophils Percent Auto 0.4 % (0-2); Eosinophils Absolute Auto 0 /uL (0-450); Eosinophils Percent Auto 0.3 % (2-4); Hematocrit 26.8 % (36-46); Hemoglobin 9.1 g/dL (12.0-16.0); Lymphocytes Absolute Auto 600 /uL (1100-4500); Lymphocytes Percent Auto 9.5 % (25-40); Mean Corpuscular HGB Conc 33.8 % (30-36); Mean Corpuscular Hemoglobin 28.9 PG (26-34); Mean Corpuscular Volume 85.4 fL (80-100); Monocytes Absolute Auto 700 /uL (0-900); Neutrophils Absolute Auto 5300 /uL (1500-7000); Neutrophils Percent Auto 79.8 % (50-75); Platelet Count 263 X10^3/uL (150-400); Red Blood Cell Count 3.14 X10^6/uL (4.0-5.2); Red Cell Distribution Width 13.7 % (11.6-14.8); White Blood Cell Count 6.7 X10^3/uL (4.5-11.0)
[2024-01-29] MEDS: ASPIRIN EC 81 MG TABLET PO ×2 (07:45→20:59)
[2024-01-29] MEDS: FAMOTIDINE 20 MG TABLET PO ×2 (07:46→20:59)
--- NOTE | 2024-01-29 07:47 | PM.PN.1 ---
Subjective Subjective Date Patient Seen: 01/28/24 Time Patient Seen: 08:48 Interval history: Amada is a pleasant 83 year old female who is POD#2 s/p left TKA by Dr. Beckwith. This morning she states she is doing slightly better than yesterday but still having severe pain with movement, pain is a 3 at rest. Has not worked with PT yet today but was able to work with them yesterday. Complains of still not having a BM but has been urinating well on her own without issue. She was able to get up from bed and use the toilet to urinate with an assist. Lives alone although she does have a daughter in the area. They feel SNF would be most appropriate and safe for patient's discharge disposition due to her lack of support at home and limited mobilty post TKA. She did have some post-op anemia d/t intra-op blood loss, patient is asymptomatic and CBCs have been stable. Denies fever or chills. No nausea or vomiting. No lightheadedness or shortness of breath or chest pain. Exam Vital Signs (past 8 hours): Oxygen Delivery Method Room Air Oxygen Flow Rate 0 Narrative Exam Narrative: Resting comfortably in bed in no apparent distress. Dressing is clean, dry and intact. Motor functions intact bilateral lower extremities. 5/5 bilateral EHL and DF. 4/5 left PF, 5/5 right PF. Sensation grossly intact to light touch bilateral lower extremities. SCDs on and functioning, calves soft and compressible bilaterally. Const General: cooperative and comfortable Nutritional Appearance: average body habitus Orientation: alert Resp Effort & Inspection: normal respiratory effort and able to speak in complete sentences Cardio Rate: regular rate Other: Extremities appear well perfused with brisk refill. Neuro General: patient alert, patient awake and patient oriented x3 Objective Labs 01/29/24 05:05 Labs: Laboratory Results - last 24 hr 01/29/24 05:05 WBC 6.7 RBC 3.14 L Hgb 9.1 L Hct 26.8 L MCV 85.4 MCH 28.9 MCHC 33.8 RDW 13.7 Plt Count 263 Neut % (Auto) 79.8 H Lymph % (Auto) 9.5 L [place] % (Auto) 10.0 Eos % (Auto) 0.3 L Baso % (Auto) 0.4 Neut # (Auto) 5300 Lymph # (Auto) 600 L [place] # (Auto) 700 Eos # (Auto) 0 Baso # (Auto) 0 PFSH Medical History Osteoarthritis Cataract Arthritis Surgical History History of arthroscopy of right knee Hx of tonsillectomy History of surgery Hx of bilateral cataract extraction (2010) History of fusion of lumbar spine (07/13/23) History of appendectomy Social History household members: none Smoking Status: Former smoker alcohol intake: current Assessment & Plan Assessment and plan (1) Postoperative anemia due to acute blood loss: Status: Acute (2) Total knee replacement status: Qualifiers: Laterality: left Qualified Code(s): Z96.652 - Presence of left artificial knee joint Status: Acute Plan 1) plan to discharge to SNF tomorrow pending insurance authorization due to patients lack of support at home and mobility difficulties. 2) continue multimodal pain management with ice to the knee for additional pain control. She declines Ibuprofen or Oxycodone. 3) ASA b.i.d. for DVT prophylaxis for 6 weeks. 4) Start outpatient physical therapy to work on range of motion and mobility 5) keep dressing intact, clean, dry until 2 week postop appointment. No soaking the incision site in pools or tubs. No topical ointments or creams to the incision site. 5) Follow up at [facility] in 2 weeks for a postop appointment and wound check. All patient's questions were answered, she demonstrates understanding and is in agreement with the plan. Call our office if any questions or concerns arise. Hospital course has been complicated by acute post-operative anemia, now stable, poor pain control on POD#1 and difficulty mobilizing with physical therapy .
[2024-01-29 09:00] VITALS: BP 138/72; PULSE 79; RESP 16; TEMP 36.4; O2SAT 96
--- NOTE | 2024-01-29 09:55 | PT.IPTN ---
Current Diagnoses Bilateral primary osteoarthritis of knee (01/27/24) Unilateral primary osteoarthritis, left knee (01/27/24) Other specified joint disorders, unspecified knee (01/27/24) Surgery Performed Operation Date: 01/27/24 10:45 Actual Procedures p Total Knee Arthroplasty - Robot(Left) - Barbi Beckwith MD Physical Therapy Treatment Note M2 PT-IP Current Condition Start: 01/27/24 16:45 Freq: NEEDED Status: Active Protocol: Document 01/27/24 15:33 AB (Rec: 01/27/24 17:05 AB [id number]) Physical Therapy Current Condition Current Condition Evaluation Date 01/27/24 Treatment Diagnosis s/p L TKA; difficulty in walking Onset Date 01/27/24 M3 PT-IP Subjective Start: 01/27/24 16:45 Freq: NEEDED Status: Active Protocol: Document 01/29/24 09:55 AB (Rec: 01/29/24 12:04 AB [id number]) Subjective Physical Therapy Visit Type Type Treatment Note Visit Start Time 09:55 Visit Stop Time 10:30 Number of WARRANTY ADMINISTRATOR Visits 0 Physical Therapy Visit Comments Patient Comments agreeable to do PT Therapy Pain Assessment Pain When Pain Assessed At Rest Pain Present Pain Present Pain Reported Location Left Knee Intensity 2 Scale Used Numeric (0 - 10) Pain Management Techniques Apply Cold,Distraction, Modification of Treatment,Re- positioning,Timing of Activity with Medications M4 PT-IP Mobility and Gait Start: 01/27/24 16:45 Freq: NEEDED Status: Active Protocol: Document 01/29/24 09:55 AB (Rec: 01/29/24 12:04 AB [id number]) PT-Bed Mobility Assessment Supine to Sit Supine to Sit Minimal Assistance Scooting Scooting to Edge of Bed Maximum Assistance PT-Transfer Assessment Sit to and From Stand Sit to and from Stand Minimal Assistance,1 Person Assistance,Use of Upper Extremities Equipment Transfer Assistive Device Gait Belt,Front Wheeled Walker Orthotic/Prosthetic Devices or Brace: No Transfers Transfer Destination Chair Transfer Technique ambulated Transfer Ability Level of Assist Minimal Assistance Comments Mobility Comments pt supine in bed and agreeable to do PT. pt has safety belt positioned on her LLE to assist with heel slide per pt and bed mobility. pt completed supine to sit min A and max cues. required max A for scooting to EOB. pt required frequent rest breaks in between tasks and easily gets anxious. pt completed sit to stand min A and ambulated in room using FWW ~ 15 ft min A and cues. pt sat on the chair. agreed to do exercises. completed seated heel slides with 5 sec hold and LAQs with 5 sec hold X 5 reps. pt stated that she is tired. positioned pt on the chair. call light and table placed within reach. Gait Assessment Gait Gait Assistance Required: Minimum Assistance Distance (Feet) 15 Able to Maintain Weight Bearing Status Yes During Gait Assistive Devices Assistive Device Gait Belt,Front Wheeled Walker Orthotic/Prosthetic Devices or Brace: No Gait Deviations General Gait Pattern Antalgic,Decreased Stride Length,Step-to Gait Factors Limiting Gait Function Factors Limiting Gait Function Decreased Activity Tolerance, Decreased Strength,Limited Range of Motion,Pain,Poor Balance,Poor Safety Awareness M5 PT-IP Objective Assessments Start: 01/27/24 16:45 Freq: NEEDED Status: Active Protocol: Document 01/27/24 15:33 AB (Rec: 01/27/24 17:05 [id number]) Orientation Orientation/Cognition Level of Alertness Alert Orientation Name,Place,Situation Language Function Ability Hard of Hearing Safety Awareness Decreased Safety Awareness Memory Description Short Term Impaired Gross Range of Motion Lower Extremity ROM Assessment Left Impaired Impairments L knee flexion: ~ 50 deg L knee exteison: ~ 20 deg less to 0 Strength Lower Extremity Strength Assessment Left Impaired Hip 4-/5 Knee 3+/5 Sensation Assessment Sensation Gross Sensation WNL Muscle Tone Muscle Tone WNL Yes M6 PT-IP Treatment Start: 01/27/24 16:45 Freq: NEEDED Status: Active Protocol: Document 01/29/24 09:55 AB (Rec: 01/29/24 12:04 [id number]) Physical Therapy Treatment Exercises Exercises Heel Slides Education Education Provided Precautions,Weight Bearing Status,Post-Op Packet,Safety M7 PT-IP Assessment and Plan Start: 01/27/24 16:45 Freq: NEEDED Status: Active Protocol: Document 01/29/24 09:55 AB (Rec: 01/29/24 12:04 [id number]) PT Summary Assessment and Plan Potential Rehabilitation Potential Good Summary Impairments Pain,ROM,Strength,Balance, Coordination,Sensation,Tone, Cognition,Bed Mobility, Transfers,Gait,Activity Tolerance Progress Towards Goals Slow Progress due to Activity Tolerance Assessment Summary pt improving slowly with mobility and requires min A for transfers and ambulation using FWW but only tolerated ~ 15 ft of ambulation with c/o feeling tired. pt plans to go to SNF rehab to improve overall strength and mobility independence. Pt will be switched back to BID tx frequency and pt will benefit from BID tx sessions. Goals Bed Mobility Goal Independent Transfer Goal Independent,Front Wheeled Walker Gait Goal Independent,Front Wheel Walker Gait Distance 100 Days to Meet Goals 5 Frequency of Treatment Frequency Of Treatment Twice a Day Treatment Plan Physical Therapy Treatment Plan Bed Mobility Training,Transfer Training,Gait Training, Therapeutic Exercise,Balance Retraining,Post Op Education, Discharge Planning,Hot or Cold Pack,Neuromuscular Re-ed, Coordination Retraining,Manual Therapy Weight Bearing Status Weight Bearing Status Weight Bear as Tolerated Allowed Weight Bearing Amount (enter % LLE WBAT or #) (%) Recommendations To Nursing Amount of Assist Needed 1 Person Assist Discharge Recommendations PT Discharge Recommendations SNF Rehab Transportation Needs at Discharge Private Vehicle,Wheelchair/ Cabulance
--- NOTE | 2024-01-29 10:45 | CM.DPC ---
DCP Cont. Reviewed EMR and team rounds for status updates. [facility] called and updated us that they now have an auth [employer] for Rehab. Plan is to d/c tomorrow to , they will transport her tomorrow (Thursday) between 12:30-12:45pm. Will send clinicals tomorrow.
--- NOTE | 2024-01-29 11:25 | OT.IP.TRT ---
Current Diagnoses Bilateral primary osteoarthritis of knee (01/27/24) Unilateral primary osteoarthritis, left knee (01/27/24) Other specified joint disorders, unspecified knee (01/27/24) Surgery Performed Operation Date: 01/27/24 10:45 Actual Procedures p Total Knee Arthroplasty - Robot(Left) - Barbi Beckwith MD Occupational Therapy Treatment Note M2 OT-IP Current Condition Start: 01/28/24 11:44 Freq: Status: Active Protocol: Document 01/28/24 11:45 [facility] (Rec: 01/28/24 12:01 [facility] [id number]) Occupational Therapy Current Condition Current Condition Evaluation Date 01/28/24 Treatment Diagnosis S/P L TKA Diagnosis Onset Date 01/27/24 M3 OT- IP Subjective and Pain Start: 01/28/24 11:44 Freq: Status: Active Protocol: Document 01/29/24 11:37 [facility] (Rec: 01/29/24 11:46 [facility] [id number]) OT- Subjective Occupational Therapy Visit Type Type Treatment Note Visit Start Time 11:00 Visit Stop Time 11:24 Occupational Therapy Visit Comments Patient Comments Pt to tired from just getting up earlier and just wanting to rest. Pt agreed to talk to OT regarding OT needs and expectations for SNF. Patient/Caregiver Goals TO go to skilled rehab. OT Pain Assessment Pain When Pain Assessed During Mobility Pain Present Pain Present Pain Reported M5 OT- IP IADL's Start: 01/28/24 11:44 Freq: Status: Active Protocol: Document 01/28/24 11:45 [facility] (Rec: 01/28/24 12:01 [facility] [id number]) OT-Instrumental Activities of Daily Living Deficits IADL Deficits Identified Deficits Home Safety Awareness Awareness of Need for Assistance at Home Good Awareness Ability to Problem Solve Emergency Able to Problem Solve Situations Medication Management Medication Management Comments Pt is a bit groggy and would benefit from asist at this time. M6 OT- IP Functional Cognition Start: 01/28/24 11:44 Freq: Status: Active Protocol: Document 01/29/24 11:37 [facility] (Rec: 01/29/24 11:46 [facility] [id number]) Cognitive Factors Limiting Selfcare Function Cognitive Ability Level of Alertness Alert Patient Orientation Name,Age,Birthday,Month,Date, Year,Day of Week,Place, Situation Attention Span Ability Capable of Focused Attention, Capable of Sustained Attention Ability to Follow Commands Able to Follow One Step Commands Cognitive Comments Cognitive Assessment Comments Able to go over stress management needs as pt tends to get anxious regarding her recovery from her knee surgery . Able to talk to her of what to ask the therapists and to be sure to be involved in her care. Pt while at skilled rehab last time, states she did not like how she was lifting items into a cupboard that was too high and that she would no do so at home. Explained to her the therapist was probably working on her dynamic standing balance and BUE strengthening. Emphasized to her to ask questions while at rehab. In addition even though pt knows how to use the adaptive equipment for dressing needs- practice works on her balance, strengthening, and activity tolerance. Pt appears to better understand now that functional activities are used as exercise to help get her more independent with ADL and mobility needs. M8 OT- IP Objective Assessments Start: 01/28/24 11:44 Freq: Status: Active Protocol: Document 01/28/24 11:45 [facility] (Rec: 01/28/24 12:01 [facility] [id number]) OT Gross Range of Motion Upper Extremity Range of Motion Assessment Within Functional Limits OT Strength Upper Extremity Strength Assessment Within Functional Limits M9 OT- IP Assessment and Plan Start: 01/28/24 11:44 Freq: Status: Active Protocol: Document 01/29/24 11:37 [facility] (Rec: 01/29/24 11:46 [facility] [id number]) OT Summary Assessment and Plan Potential Rehabilitation Potential Good Analytic Complexity at Evaluation Low Summary OT Impairments Pain,Range of Motion,Strength, Balance,Functional Mobility, Grooming,Dressing,Toileting, Bathing,Toilet Transfers, Shower Transfers,Activity Tolerance Progress Towards Goals Progressing Toward Goals Assessment Summary Able to talk in length with pt regarding stress management and expectations and questions to ask while art skilled rehab. Pt is very motivated to get better and looking to go to skilled rehab tomorrow. Goals Self-Feeding Goal Independent Grooming Goal Independent Dressing Goal Independent,Dice Table Operator,Sock Aid Toileting Goal Independent Bathing Goal Independent Shower Transfer Goal Independent Days to Meet Goals 20 Frequency of Treatment Frequency Of Treatment Once a Day Treatment Plan OT Treatment Plan ADL Training,Functional Mobility,Patient/Family Education,Discharge Planning Discharge Recommendations OT Discharge Recommendations SNF Rehab Home Equipment Needs shower chair, long handled brush/sponge Transportation Needs at Discharge Wheelchair/Cabulance
[2024-01-29] MEDS: TRAMADOL 50 MG TABLET 100 MG PO (13:12)
--- NOTE | 2024-01-29 14:20 | PT.IPTN ---
Current Diagnoses Acute posthemorrhagic anemia (01/27/24) Bilateral primary osteoarthritis of knee (01/27/24) Unilateral primary osteoarthritis, left knee (01/27/24) Other specified joint disorders, unspecified knee (01/27/24) Presence of left artificial knee joint (01/27/24) Surgery Performed Operation Date: 01/27/24 10:45 Actual Procedures p Total Knee Arthroplasty - Robot(Left) - Barbi Beckwith MD Physical Therapy Treatment Note M2 PT-IP Current Condition Start: 01/27/24 16:45 Freq: NEEDED Status: Active Protocol: Document 01/27/24 15:33 AB (Rec: 01/27/24 17:05 AB [id number]) Physical Therapy Current Condition Current Condition Evaluation Date 01/27/24 Treatment Diagnosis s/p L TKA; difficulty in walking Onset Date 01/27/24 M3 PT-IP Subjective Start: 01/27/24 16:45 Freq: NEEDED Status: Active Protocol: Document 01/29/24 14:20 AB (Rec: 01/29/24 15:25 AB [id number]) Subjective Physical Therapy Visit Type Type Treatment Note Visit Start Time 14:20 Visit Stop Time 15:00 Number of CONTRACTOR GENER[employer] BUILDING Visits 0 Physical Therapy Visit Comments Patient Comments agreeable to do PT Therapy Pain Assessment Pain When Pain Assessed At Rest Pain Present Pain Present Pain Reported Location Left Knee Intensity 4 Scale Used Numeric (0 - 10) Pain Management Techniques Apply Cold,Distraction, Elevation,Modification of Treatment,Re-positioning, Timing of Activity with Medications M4 PT-IP Mobility and Gait Start: 01/27/24 16:45 Freq: NEEDED Status: Active Protocol: Document 01/29/24 14:20 AB (Rec: 01/29/24 15:25 AB [id number]) PT-Bed Mobility Assessment Supine to Sit Supine to Sit Minimal Assistance,1 Person Assistance Sit to Supine Sit to Supine Maximum Assistance PT-Transfer Assessment Sit to and From Stand Sit to and from Stand Contact Guard Assistance, Minimal Assistance,1 Person Assistance,Use of Upper Extremities Equipment Transfer Assistive Device Gait Belt Orthotic/Prosthetic Devices or Brace: No Comments Mobility Comments pt supine in bed and agreeable to do PT. completed supine to sit min A and max cues for techniques. pt completed sit to stand from EOB min A and cues. pt tends to pull on FWW to get up and cued for safety . pt ambulated in room using FWW CGA ~ 20 ft. pt sat back on EOB. refused to sit up on the chair. educated pt on sit<>stand techniques. PT demonstrated and educated pt. pt completed sit<>stand x 5 reps CGA and cues. pt completed sit to supine max A for LE elevation up to bed. positioned pt in bed bed. call light and table placed within reach. Gait Assessment Gait Gait Assistance Required: Contact Guard Assist Distance (Feet) 20 Able to Maintain Weight Bearing Status Yes During Gait Assistive Devices Assistive Device Gait Belt,Front Wheeled Walker Orthotic/Prosthetic Devices or Brace: No Gait Deviations General Gait Pattern Antalgic,Decreased Stride Length,Decreased Feet Clearance Factors Limiting Gait Function Factors Limiting Gait Function Decreased Activity Tolerance, Decreased Strength,Difficulty Following Directions,Limited Range of Motion,Pain,Poor Balance,Poor Safety Awareness M5 PT-IP Objective Assessments Start: 01/27/24 16:45 Freq: NEEDED Status: Active Protocol: Document 01/27/24 15:33 AB (Rec: 01/27/24 17:05 [id number]) Orientation Orientation/Cognition Level of Alertness Alert Orientation Name,Place,Situation Language Function Ability Hard of Hearing Safety Awareness Decreased Safety Awareness Memory Description Short Term Impaired Gross Range of Motion Lower Extremity ROM Assessment Left Impaired Impairments L knee flexion: ~ 50 deg L knee exteison: ~ 20 deg less to 0 Strength Lower Extremity Strength Assessment Left Impaired Hip 4-/5 Knee 3+/5 Sensation Assessment Sensation Gross Sensation WNL Muscle Tone Muscle Tone WNL Yes M6 PT-IP Treatment Start: 01/27/24 16:45 Freq: NEEDED Status: Active Protocol: Document 01/29/24 14:20 AB (Rec: 01/29/24 15:25 [id number]) Physical Therapy Treatment Education Education Provided Safety M7 PT-IP Assessment and Plan Start: 01/27/24 16:45 Freq: NEEDED Status: Active Protocol: Document 01/29/24 14:20 AB (Rec: 01/29/24 15:25 [id number]) PT Summary Assessment and Plan Potential Rehabilitation Potential Good Summary Impairments Pain,ROM,Strength,Balance, Coordination,Sensation,Tone, Cognition,Bed Mobility, Transfers,Gait,Activity Tolerance Progress Towards Goals Slow Progress due to Pain,Slow Progress due to Activity Tolerance Assessment Summary pt progressing slowly with mobility and requiring CGA to min A with sit to stand and CGA with ambulation but continues to have decrease activity tolerance affecting mobility independence. pt will benefit from SNF rehab to improve overall strength and mobility. Goals Bed Mobility Goal Independent Transfer Goal Independent,Front Wheeled Walker Gait Goal Independent,Front Wheel Walker Gait Distance 100 Days to Meet Goals 5 Frequency of Treatment Frequency Of Treatment Twice a Day Treatment Plan Physical Therapy Treatment Plan Bed Mobility Training,Transfer Training,Gait Training, Therapeutic Exercise,Balance Retraining,Post Op Education, Discharge Planning,Hot or Cold Pack,Neuromuscular Re-ed, Coordination Retraining,Manual Therapy Weight Bearing Status Weight Bearing Status Weight Bear as Tolerated Allowed Weight Bearing Amount (enter % LLE WBAT or #) (%) Recommendations To Nursing Amount of Assist Needed 1 Person Assist Discharge Recommendations PT Discharge Recommendations SNF Rehab Transportation Needs at Discharge Private Vehicle,Wheelchair/ Cabulance
[2024-01-29] MEDS: FLEETS ENEMA 1 EACH PR (16:48)
[2024-01-29 17:00] VITALS: BP 152/76; PULSE 81; RESP 16; TEMP 36.3; O2SAT 98
[2024-01-29 20:30] VITALS: BP 135/78; PULSE 84; RESP 16; TEMP 36.9; O2SAT 96
[2024-01-30] MEDS: ACETAMINOPHEN 325 MG TABLET 650 MG PO (01:09)
[2024-01-30] MEDS: TRAMADOL 50 MG TABLET 100 MG PO ×2 (01:10→08:21)
[2024-01-30] MEDS: FAMOTIDINE 20 MG TABLET PO (08:21)
[2024-01-30] MEDS: ASPIRIN EC 81 MG TABLET PO (08:22)
[2024-01-30 08:54] LABS: Add Manual Diff / Slide Review NO; Basophils Absolute Auto 0 /uL (0-100); Basophils Percent Auto 0.4 % (0-2); Eosinophils Absolute Auto 100 /uL (0-450); Eosinophils Percent Auto 1.1 % (2-4); Hematocrit 27.3 % (36-46); Hemoglobin 9.3 g/dL (12.0-16.0); Lymphocytes Absolute Auto 700 /uL (1100-4500); Lymphocytes Percent Auto 9.9 % (25-40); Mean Corpuscular HGB Conc 34.2 % (30-36); Mean Corpuscular Volume 84.9 fL (80-100); Monocytes Absolute Auto 600 /uL (0-900); Monocytes Percent Auto 8.4 % (3-14); Neutrophils Absolute Auto 5800 /uL (1500-7000); Neutrophils Percent Auto 80.2 % (50-75); Platelet Count 288 X10^3/uL (150-400); Red Blood Cell Count 3.21 X10^6/uL (4.0-5.2); Red Cell Distribution Width 13.4 % (11.6-14.8); White Blood Cell Count 7.2 X10^3/uL (4.5-11.0)
[2024-01-30 09:00] VITALS: BP 122/64; PULSE 86; RESP 16; TEMP 36.6; O2SAT 98
--- NOTE | 2024-01-30 09:21 | P.DS_ITS ---
History of Present Illness History of Present Illness Date Patient Seen: 01/30/24 Time Patient Seen: 09:21 Chief complaint: Left TKA Robot Narrative: Operative Date/Time/Diagnoses Date of procedure: 01/27/24 Time of procedure: 12:00 Pre-op diagnosis: Left knee arthritis Post-op diagnosis: same Procedure & Clinicians Procedure: Left total knee arthroplasty CPT code 31067 Robotic assisted surgery [id number] Computer-assisted navigation [id number] Same procedure as scheduled: Yes Indications: The patient has significant pain associated with osteoarthritis of the left knee. It is associated with morning stiffness. Pain interferes with daily normal function including ambulation standing and any activities that are weight-bearing. It interferes with sleep. There is crepitation with range of motion. There is marked joint line tenderness. X-rays show significant levels of osteoarthritis. Valgus arthritis, previous attempted previous conservative treatment has been rendered. The patient has failed exercise program, medications and previous injections. Patient is indicated for total knee arthroplasty. The risks and benefits of the procedure have been discussed with the patient and given the opportunity to ask questions. The risks of surgery include but are not limited to infection, malunion, nonunion, persistence of pain, damage to nerves and blood vessels, posttraumatic arthritis, DVT, PE, cardiopulmonary complications and . The patient expressed a thorough understanding of the risks and benefits of surgery and has elected to proceed. Consent was signed. During the operation, the services of a physician surgical appliance fitter were medically indicated and necessary to provide the exposure of the operative site for the surgical procedure and to maintain the limb in a proper position to carry out the operation safely and efficiently. Without a qualified fleet administrative assistant being present this would extended the operative procedure and made the procedure technically more difficult to perform. Surgeon: Barbi Beckwith Bolt Sawyer: Loreto Neville Anesthesia Type: General, Peripheral nerve block and Local Operative Notes Findings: Valgus knee arthritis end-stage, full-thickness cartilage loss large osteophytes Closure Type: primary Specimen(s): none sent Prosthetic devices, grafts, tissues, transplants, or devices: Valdez and Nephew journey 2 BCS total knee Femur cobalt chromium size 5 left Journey tibia size 3 left Polyethylene 10 mm Patella 32 mm x 7.5 mm round Estimated Blood Loss (mL): 50 Blood products transfused: none Tourniquet time (min): 85 Discharge Providers Provider Date of admission: 01/27/24 08:59 Discharge Date: 01/30/24 Primary care physician: Jackson Palomino MD Consults: 01/27/24 14:33 Consult to Discharge Planning Routine Comment: Consult to Occupational Therapy Evaluate & Treat Comment: Physician Instructions: Evaluate and treat Consult to Physical Therapy Evaluate & Treat Comment: Physician Instructions: postop TKA protocol Discharge provider: Loreot Neville PA-C Summary Hospital Course Discharge Diagnosis: Left knee osteoarthritis, s/p left total knee arthroplasty Hospital Course: Ms Ferguson'marielena hospital course was remarkable for postoperative anemia and slow progress w/ PT. On the morning of POD# 3, PT continued to recommend SNF placement d/t pt's need for 1 person assist. She was eating and voiding without difficulty and her pain was well-controlled with oral medication. She was very happy with her surgical results and very appreciative of Dr Beckwith and the hospital staff. Her H/H was stable and improved throughout her stay and she did not require transfusion. Her vital signs were stable. Exam Vital Signs (past 8 hours): Oxygen Delivery Method Room Air Oxygen Flow Rate 0 Narrative Exam Narrative: 5/5 strength in hip flexors, quadriceps, hamstrings, DF, PF, EHL on left. Sensation to light touch intact throughout LLE, calf soft and compressible. Minimal amount of bloody drainage on dressing from tibial stab incision; Aquacel dressing CDI. Objective Labs 01/30/24 08:33 Labs: Laboratory Results - last 24 hr 01/30/24 08:33 WBC 7.2 RBC 3.21 L Hgb 9.3 L Hct 27.3 L MCV 84.9 MCH 29.0 MCHC 34.2 RDW 13.4 Plt Count 288 Neut % (Auto) 80.2 H Lymph % (Auto) 9.9 L Thurston % (Auto) 8.4 Eos % (Auto) 1.1 L Baso % (Auto) 0.4 Neut # (Auto) 5800 Lymph # (Auto) 700 L Thurston # (Auto) 600 Eos # (Auto) 100 Baso # (Auto) 0 PFSH Medical History Osteoarthritis Cataract Arthritis Surgical History History of arthroscopy of right knee Hx of tonsillectomy History of surgery Hx of bilateral cataract extraction (2010) History of fusion of lumbar spine (07/13/23) History of appendectomy Social History household members: none Smoking Status: Former smoker alcohol intake: current Discharge Assessment & Plan Assessment and Plan Assessment: Left knee osteoarthritis, s/p left total knee arthroplasty Acute postoperative anemia d/t expected surgical blood loss Plan of Treatment: Discharge to SNF for continued PT prior to homegoing. Multimodal pain control, ASA BID for VTE prophylaxis, f/u in office in 2 weeks as scheduled. Discharge Plan Discharge Plan Patient Disposition: SNF Transfer to: [facility] Discharge orders & Medications Prescriptions: New aspirin 81 mg Tablet,Delayed Release (Dr/Ec) 81 mg PO BID 42 Days Qty: 84 0RF famotidine [Pepcid AC] 20 mg Tablet 20 mg PO BID Qty: 90 0RF acetaminophen 325 mg Tablet 650 mg PO Q6H Qty: 90 1RF ondansetron 4 mg Tablet,Disintegrating 4 mg PO Q4-8H PRN (Reason: Nausea And Vomiting) Qty: 10 0RF tramadol 50 mg Tablet 50 mg PO Q6H PRN (Reason: Pain, Moderate (4-6)) Qty: 30 0RF docusate sodium 100 mg capsule 100 mg PO BID PRN (Reason: constipation) Qty: 60 0RF Discontinued ibuprofen 200 mg Tablet 400 mg PO TID PRN (Reason: pain) acetaminophen 325 mg tablet 1,000 mg PO TID PRN (Reason: Pain) Follow up/Referrals: Barbi Beckwith MD [Physician] - 02/05/24 4:00 pm (Follow up w/ Wallace Whipple PA-C, at [facility]. 02/05/24 at 4:00pm) Jackson Palomino MD [Primary Care Provider] - Diet/Activity/Treatments Diet: Diet as Tolerated Activity: Weightbearing as tolerated. Work with physical therapy to improve strength and range of motion/mobility. Cold/Heat Therapy: Ice to the knee for additional pain control. Skin/Wound/Dressing Care Report to your healthcare provider any signs of infection, such as:: chills, fever, night sweats, unusual drainage and unusual redness Dressing: Keep dressing intact, clean and dry until 2 week post-op appointment. No soaking the incision site in pools or tubs. No topical ointments or creams to the incision site. Special Rehabilitation Services Reason for rehabilitation: Post-operative therapy Rehab type: Physical therapy and Occupational therapy Visit Report/Discharge Packet Instructions: DI for Knee Replacement, DI for Prescription Opioid Use Stand Alone Forms: Patient Portal/API, Surgery Discharge Discharge Data Primary Care Provider: Jackson Palomino
--- NOTE | 2024-01-30 10:35 | PT.IPTN ---
Current Diagnoses Acute posthemorrhagic anemia (01/27/24) Bilateral primary osteoarthritis of knee (01/27/24) Unilateral primary osteoarthritis, left knee (01/27/24) Other specified joint disorders, unspecified knee (01/27/24) Presence of left artificial knee joint (01/27/24) Surgery Performed Operation Date: 01/27/24 10:45 Actual Procedures p Total Knee Arthroplasty - Robot(Left) - Barbi Beckwith MD Physical Therapy Treatment Note M2 PT-IP Current Condition Start: 01/27/24 16:45 Freq: NEEDED Status: Active Protocol: Document 01/27/24 15:33 AB (Rec: 01/27/24 17:05 AB [id number]) Physical Therapy Current Condition Current Condition Evaluation Date 01/27/24 Treatment Diagnosis s/p L TKA; difficulty in walking Onset Date 01/27/24 M3 PT-IP Subjective Start: 01/27/24 16:45 Freq: NEEDED Status: Active Protocol: Document 01/30/24 11:13 TS (Rec: 01/30/24 11:27 TS [id number]) Subjective Physical Therapy Visit Type Type Treatment Note Visit Start Time 10:35 Visit Stop Time 11:05 Number of FLAG DECORATOR Visits 1 Physical Therapy Visit Comments Patient Comments Pt reports feeling better this morning, is agreeable to PT. Therapy Pain Assessment Pain When Pain Assessed At Rest Pain Present Pain Present Pain Reported M4 PT-IP Mobility and Gait Start: 01/27/24 16:45 Freq: NEEDED Status: Active Protocol: Document 01/30/24 11:13 TS (Rec: 01/30/24 11:27 TS [id number]) PT-Bed Mobility Assessment Supine to Sit Supine to Sit Standby Assistance Scooting Scooting to Edge of Bed Standby Assistance PT-Transfer Assessment Sit to and From Stand Sit to and from Stand Contact Guard Assistance,1 Person Assistance,Use of Upper Extremities Equipment Transfer Assistive Device Gait Belt Orthotic/Prosthetic Devices or Brace: No Comments Mobility Comments Pt performed quad sets, heel slides and ankle pumps prior to mobility. Supine to sit SBA with BUE support, pt requires extra time to complete task. STS from bed SBA with FWW, pt demonstrates good carryover of sequencing. She ambulated ~30 ' in room SBA with step to gait, had no buckling or LOB. PT was left in chair, all needs met. Gait Assessment Gait Gait Assistance Required: Contact Guard Assist Distance (Feet) 30 Able to Maintain Weight Bearing Status Yes During Gait Assistive Devices Assistive Device Gait Belt,Front Wheeled Walker Orthotic/Prosthetic Devices or Brace: No Gait Deviations General Gait Pattern Antalgic,Decreased Stride Length,Decreased Feet Clearance Factors Limiting Gait Function Factors Limiting Gait Function Decreased Activity Tolerance, Decreased Strength,Difficulty Following Directions,Limited Range of Motion,Pain,Poor Balance,Poor Safety Awareness Comments Gait Comments see mobility comments PT-Balance Assessment Sitting Balance and Reactions Static Sitting Balance Ability Good Dynamic Sitting Balance Ability Fair Standing Balance and Reactions Static Standing Balance Ability Fair Dynamic Standing Balance Ability Fair Device Used FWW M5 PT-IP Objective Assessments Start: 01/27/24 16:45 Freq: NEEDED Status: Active Protocol: Document 01/27/24 15:33 AB (Rec: 01/27/24 17:05 AB [id number]) Orientation Orientation/Cognition Level of Alertness Alert Orientation Name,Place,Situation Language Function Ability Hard of Hearing Safety Awareness Decreased Safety Awareness Memory Description Short Term Impaired Gross Range of Motion Lower Extremity ROM Assessment Left Impaired Impairments L knee flexion: ~ 50 deg L knee exteison: ~ 20 deg less to 0 Strength Lower Extremity Strength Assessment Left Impaired Hip 4-/5 Knee 3+/5 Sensation Assessment Sensation Gross Sensation WNL Muscle Tone Muscle Tone WNL Yes M6 PT-IP Treatment Start: 01/27/24 16:45 Freq: NEEDED Status: Active Protocol: Document 01/30/24 11:13 TS (Rec: 01/30/24 11:27 TS [id number]) Physical Therapy Treatment Exercises Exercises Ankle Pumps,Quad Sets,Heel Slides Education Education Provided Safety M7 PT-IP Assessment and Plan Start: 01/27/24 16:45 Freq: NEEDED Status: Active Protocol: Document 01/30/24 11:13 TS (Rec: 01/30/24 11:27 TS [id number]) PT Summary Assessment and Plan Potential Rehabilitation Potential Good Summary Impairments Pain,ROM,Strength,Balance, Coordination,Sensation,Tone, Cognition,Bed Mobility, Transfers,Gait,Activity Tolerance Progress Towards Goals Slow Progress due to Pain,Slow Progress due to Activity Tolerance Assessment Summary Amada is making good progress with her mobility. She is SBA for supine to sit. She performed STS SBA with good carryover of technique. She ambulated in room ~30'SBA with FWW. Pt's plan is to go to SNF at 12:30 today. PT is recommending home vs SNF. Goals Bed Mobility Goal Independent Transfer Goal Independent,Front Wheeled Walker Gait Goal Independent,Front Wheel Walker Gait Distance 100 Days to Meet Goals 5 Frequency of Treatment Frequency Of Treatment Twice a Day Treatment Plan Physical Therapy Treatment Plan Bed Mobility Training,Transfer Training,Gait Training, Therapeutic Exercise,Balance Retraining,Post Op Education, Discharge Planning,Hot or Cold Pack,Neuromuscular Re-ed, Coordination Retraining,Manual Therapy Other Recommendations and Next Treatment Progress gait. Focus Weight Bearing Status Weight Bearing Status Weight Bear as Tolerated Allowed Weight Bearing Amount (enter % LLE WBAT or #) (%) Recommendations To Nursing Amount of Assist Needed 1 Person Assist Discharge Recommendations PT Discharge Recommendations Home with 23/03 Assist Available,SNF Rehab,Home vs SNF Transportation Needs at Discharge Private Vehicle,Wheelchair/ Cabulance
--- NOTE | 2024-01-30 11:09 | CM.DPC ---
DCP Cont. Reviewed EMR and team rounds for status updates. Pt has been medically cleared for d/c today, she will be transported by [facility] between 12:30-12:45pm. Faxed [facility] and d/c clinicals to . No further DCP needs are indicated at this time.
--- NOTE | 2024-01-30 11:18 | PC.NURSE ---
Addendum entered by Elena Torres R.N. 01/30/24 12:54: Med for discomfort prior to discharge to [facility] Report called Transportation here Attempted tpo call report w/ no answer D/C in stable post op status. Original Note: Pt A/O Med w/tramadol for discomfort w/good relief. Dsg to left knee CDI IV site D/C intact, Will be D/C to [facility] this afternoon, Call light w/in reach, bed alarm on for pt safety. Continue w/plan of care.
[2024-01-30] MEDS: TRAMADOL 50 MG TABLET PO (12:50)
== END 2024-01-30 12:55 | DRG 470 ==
LOC: AC 09:37 → ICU 12:39 → AC 01-28 13:50
PROVIDERS: Admitting Provider Orthopaedic Surgery Foot and Ankle Surgery; PCP Family Medicine; Referring Provider Family Medicine; Visit Provider Orthopaedic Surgery Foot and Ankle Surgery
PROC: 0SRD0JZ Replacement of Left Knee Joint with Synthetic Substitute, Open Approach (ICD-10-PCS; CPT 27447; principal; 2024-01-27 10:45)
DX: M17.12 Unilateral primary osteoarthritis, left knee (principal)
CPT/HCPCS: 36415; 64450; 73560; 85014; 85018; 85025; 87797; 97110; 97116; 97162; 97165; 97530; C1776; A9270; C9290; J0171; J0690; J1100; J1170; J2250; J2405; J2704; J3010

== ENCOUNTER 2024-06-15 07:15 | Inpatient (IN) | payer MEDICARE, SELFPAY ==
[2024-01-27 14:34] VITALS: BMI 29.7
[2024-06-07 08:48] VITALS: BMI 32.1
[2024-06-15] VITALS (13 sets, daily range): BP systolic 113–158; BP diastolic 59–87; PULSE 68–86; RESP 12–19; TEMP 36.3–37.1; O2SAT 89–98; BMI 30.1
--- NOTE | 2024-06-15 06:00 | DI.RAD.S_ITS ---
PROCEDURE: XR KNEE RT 1TO2V INDICATIONS: Right TKA TECHNIQUE: 2 view(s) of the knee acquired. COMPARISON: [facility], CR, XR KNEE LT 1TO2V, 01/27/2024, 13:50. FINDINGS: Bones: Patient is status post knee joint arthroplasty. Hardware components are in expected positions. Visualized bony structures are intact. Soft tissues: Overlying postoperative changes are noted. IMPRESSION: Expected post-operative appearance of a knee arthroplasty. Dictated by: Filippo Chavez M.D. on 06/15/2024 at 12:01 Approved by: Filippo Chavez M.D. on 06/15/2024 at 12:01
--- NOTE | 2024-06-15 07:51 | PM.PREOP ---
Pre-operative Note Interval Note History & Physical reviewed/Exam performed by Physician: Yes Changes to H&P: No
[2024-06-15] MEDS: LACTATED RINGERS 1,000 ML 42 ML IV (08:07)
--- NOTE | 2024-06-15 08:07 | PM.OP.1 ---
Operative Date/Time/Diagnoses Date of procedure: 06/15/24 Time of procedure: 08:50 Pre-op diagnosis: Right knee arthritis Post-op diagnosis: same Procedure & Clinicians Procedure: Total knee arthroplasty, right CPT code 94928 Robotic assisted surgery CPT S2900 Computer navigation assisted surgery CPT code 33004 Same procedure as scheduled: Yes Indications: The patient is a 83-year-old female with right valgus end-stage bzyf-la-rlgy knee arthritis. The patient has a significant right knee arthritis. They have failed conservative treatment with activity modifications, injections, physical therapy and bracing. They has been indicated for total knee replacement. The risks and benefits of the procedure have been discussed with the patient even opportunity to ask questions. The risks of surgery include but are not limited to infection, malunion, nonunion, fracture, loosening, persistence of pain, damage to nerves and blood vessels, need for additional procedures, DVT, PE, cardiopulmonary complications and . The patient expressed a thorough understanding of the risks and benefits of surgery and has elected to proceed. Consent was signed in the office. During the operation the services of physician pathology assistant were medically indicated and necessary to provide the exposure of the operative site for the surgical procedure and to maintain the limb in a proper position to carry out the procedure safely and efficiently. Without a qualified home health assistant being present this would extend the operative procedure and would have made the procedure more technically difficult to perform. The pathology assistant was medically necessary for the proper positioning, retraction and manipulation of the limb, proper exposure, and manipulation of the tissue for implantation implants and closure. Surgeon: Barbi Beckwith Water Purification Chemist: Kimi Ochoa Anesthesia Type: General, Spinal, Peripheral nerve block and Local Operative Notes Findings: End-stage valgus knee arthritis, right Closure Type: primary Specimen(s): none sent Prosthetic devices, grafts, tissues, transplants, or devices: Valdez and nephew journey 2 BCS Femur cobalt chromium 5 Tibia 3 Poly 11 mm Patella 32 x 7.5 round Estimated Blood Loss (mL): 100 Blood products transfused: none Tourniquet time (min): 82 Procedure in detail: Patient was seen in the preoperative area where the patient and site of surgery were identified in the operative knee was marked informed consent confirmed. This was the right knee. Patient received the appropriate preoperative antibiotics this was 2 g of Ancef. And other preoperative medications and was taken to the operating room placed on operating table in the supine position. Spinal anesthetic were administered. The operative extremity was then prepped and draped in the standard sterile fashion with a nonsterile tourniquet high on the thigh. Patient was placed on the green foam bolsters. A lateral post was placed at the level of the proximal thigh /trochanter area as a lateral post. Formal time-out procedure was performed confirming the patient's side and site of surgery and administration of appropriate preoperative antibiotics and implants were in the room accounted for. All were in agreement. Patient received a preoperative dose of tranexamic acid and then a 2nd dose at tourniquet release Patient was prepped and draped in the standard sterile fashion and the foot was placed into the leg rivera. This was taken into high flexion and the incision was marked out over the anterior knee to the level of the medial tubercle tubercle. The Esmarch was then used for exsanguination and the tourniquet was inflated to 250 mmHg. Was made through the skin and subcutaneous tissue in high flexion this was then brought down into 30? of flexion for the medial parapatellar arthrotomy. A marker pen was used to papo the arthrotomy site for later repair. Joint fluid was evacuated. The anterior osteophytes and soft tissues were removed. A very minimal medial release was initially made along the medial proximal tibia with Bovie due to the valgus deformity.. The patella was 1st cut using the saw sized and prepped and then subluxed throughout the case and protected. The leg was then taken into extension and the patella was everted and the patella was cut to accommodate the patellar button. This was sized to a 32 mm button for a 7.5 mm thickness to recreate the original dimensions of the patella. Poly was removed and the protector replaced and the patella was subluxed and the knee was taken back up into flexion and attention was returned to the femur. Then the rotational landmarks of Whitesides line and the trans epicondylar axis were marked on the femur with electrocautery. ACL and PCL were released. Then the Cori robotic pins were placed into the femur and tibia and the race set up. Landmarks were established and the robotic planning was commenced. Plan was developed and improved and adjusted as necessary to create a balanced knee. Starting alignment was 5? of valgus. Correction was planned to between 1 and 0? of valgus utilizing 4? of femoral external rotation and 1 degree of valgus in the distal femur cut. The cuts were balanced to 1-2 mm laxity in flexion and extension. Distal femur was cut robotic bur. Attention was then turned to the tibia and the tibial resection was made in accordance with the robotic planning. This was checked with the extension block and matched the planning. then the 5 in 1 cutting block was applied complete the femur cuts. The trials were placed. And the femoral notch was cut a standard fashion using Reamer then slap hammer. The knee was trialed and the checked. Knee was balanced in flexion extension. Range of motion 0-135 degrees was obtained. The rotation femoral trial was marked Bovie on the bone and checked with a long galen. The tibia was then finished with a drill and flange cut and then The trial implants were removed. Then in extension the posterior capsule was injected with a mixture of 40 mL of 0.25% Marcaine and 20 mL of Exparel care to avoid excessive injection posterior laterally. The remainder of this was saved for the capsule and subcutaneous tissue and placed during cement curing. The wound and bone was irrigated with pulsatile lavage. This was then dried with a sponge. The components were verified and opened and the cement was mixed. Cement was applied to the components and then to the bone then the tibia was cemented in place 1st followed by the femur then the patella. Excess cement was removed. With care looking around the back of the knee. Remainder of the injection was injected around the capsule. trial poly was placed back in the leg was placed into extension for the patellar cementing. After this was cured approximately 15 minutes later and the dilute Betadine solution was placed for at least 3 minutes in the wound this was then irrigated out and the final poly was placed. This was a 11 mm poly. The tourniquet was released hemostasis was achieved. Final 1g of tranexamic acid was given IV at the time of tourniquet release. The capsule was closed with 1. Ethibond suture. Followed by a running Quill stitch. Subcutaneous layer was closed with 3-0 Vicryl suture. Skin was closed with a running V lock suture Stratafix Monocryl type suture and Dermabond. An Aquacel dressing was placed . An Kai wrap was applied. Anesthetic was terminated the patient was woken from anesthesia and taken to recovery room in good condition. There no immediate complications from this procedure. The patient will be maintained on a standard total knee replacement protocol with weight-bearing as tolerated. Complications: none Post-operative Condition: stable Disposition: Acute Care Plan for aftercare: Postoperative total knee protocol. Plan inpatient admission and planned long-term discharge due to requirement for assistive mobilization and long-term care. Aspirin 81 mg b.i.d. x6 weeks for DVT prophylaxis. Physical therapy postoperatively.
[2024-06-15] MEDS: CELECOXIB 200 MG CAPSULE 400 MG PO (08:09)
[2024-06-15] MEDS: ACETAMINOPHEN 325 MG TABLET 975 MG PO (08:10)
--- NOTE | 2024-06-15 08:11 | SUR.OPER ---
Addendum entered by Linda Robert R.N. 06/15/24 09:28: Operative leg secures in moshe boot positioner. Original Note: Supine on padded OR bed. Pillow under head, arms secured on padded armboards <90 degree abduction. Safety belt across torso. Non-operative leg secured with tape over blanket over lower leg. Operative leg secured in DeMayo/Moshe/Nathe positioner. Foam padded brace at thigh of operative leg.
--- NOTE | 2024-06-15 08:36 | SUR.PREOP ---
Block start time [835] . Monitoring initiated and maintained throughout procedure. Oxygen and medications given per anesthesiologist instructions. Time out 830. Patient remained stable throughout procedure, no adverse reactions noted. Block end time [838]. 2L nasal
[2024-06-15] MEDS: CEFAZOLIN 2 GM/100 ML PREMIX 100 ML IV ×2 (08:52→17:17)
[2024-06-15] MEDS: TRANEXAMIC ACID 1,000 MG VIAL 2000 MG INJ ×2 (09:05→10:43)
[2024-06-15] MEDS: BUPIVACAINE 0.25% (PF) 60 ML, EPINEPHrine 0.3 MG INJ (09:33)
[2024-06-15] MEDS: BUPIVACAINE LIPOSOME 266 MG/20 ML VIAL INJ (10:50)
[2024-06-15] MEDS: HYDROMORPHONE 1 MG INJ IV ×2 (11:30→11:37)
[2024-06-15] MEDS: ONDANSETRON 4 MG/2 ML INJ IV (11:37)
[2024-06-15] MEDS: hydrOXYzine 50 MG/ML INJ 25 MG IM (11:48)
[2024-06-15] MEDS: OXYCODONE IR 5 MG TABLET PO (11:50)
[2024-06-15] MEDS: KETOROLAC 30 MG/ML VIAL 15 MG IV ×2 (12:32→20:34)
[2024-06-15] MEDS: ACETAMINOPHEN 325 MG TABLET 650 MG PO ×2 (12:32→17:16)
[2024-06-15] MEDS: LACTATED RINGERS 1,000 ML 100 ML IV (12:33)
--- NOTE | 2024-06-15 13:28 | PT.IIE ---
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) Medical History (Last Reviewed 01/28/24 @ 08:49 by Kareem Neff PA-C) Arthritis Cataract Osteoarthritis Physical Therapy Inpatient Evaluation/Re-Eval M1 PT/OT-IP Prior Functional Status Start: 06/15/24 14:13 Freq: NEEDED Status: Active Protocol: Document 06/15/24 13:28 AB (Rec: 06/15/24 14:24 AB [id number]) Medical Review Prior Functional Status Medical History Reviewed Yes Communication able to make needs known Mobility and Gait pt stated that she was independent with all mobilities and ambulation wihtout AD Social History Household Members none Living Arrangements Senior Living Facility Number of Stairs To Enter/Railing? pt lives at [facility] no steps to enter Home Environment High Toilet,Walk in Shower Home Equipment Front Wheel Walker,Four Wheel Walker,Straight Cane,Hand Held Shower,Grab Bars Near Toilet, Grab Bars In Shower Additional Social History Comment pt has an adjustable bed M2 PT-IP Current Condition Start: 06/15/24 14:13 Freq: NEEDED Status: Active Protocol: Document 06/15/24 13:28 AB (Rec: 06/15/24 14:24 AB [id number]) Physical Therapy Current Condition Current Condition Evaluation Date 06/15/24 Treatment Diagnosis s/p R TKA; difficulty in walking Onset Date 06/15/24 M3 PT-IP Subjective Start: 06/15/24 14:13 Freq: NEEDED Status: Active Protocol: Document 06/15/24 13:28 AB (Rec: 06/15/24 14:24 AB [id number]) Subjective Physical Therapy Visit Type Type Initial Evaluation Visit Start Time 13:28 Visit Stop Time 14:10 Number of HYDROGRAPHY TEACHER Visits 0 Physical Therapy Visit Comments Patient Comments agreeable to do PT Therapy Pain Assessment Pain When Pain Assessed At Rest Pain Present Pain Present Pain Reported Location Right Knee Intensity 4 Scale Used 9/10 with movement Pain Management Techniques Apply Cold,Distraction, Modification of Treatment,Re- positioning,Timing of Activity with Medications M4 PT-IP Mobility and Gait Start: 06/15/24 14:13 Freq: NEEDED Status: Active Protocol: Document 06/15/24 13:28 AB (Rec: 06/15/24 14:24 AB [id number]) PT-Bed Mobility Assessment Supine to Sit Supine to Sit Moderate Assistance PT-Transfer Assessment Sit to and From Stand Sit to and from Stand Maximum Assistance,1 Person Assistance,2 Person Assistance ,Use of Upper Extremities Equipment Transfer Assistive Device Gait Belt,Front Wheeled Walker Orthotic/Prosthetic Devices or Brace: No Transfers Transfer Destination Toilet Transfer Technique ambulated Transfer Ability Level of Assist Moderate Assistance,1 Person Assistance,Use of Upper Extremities Comments Mobility Comments pt supine in bed and agreeable to do PT. Daughter and ERROL initially in room but stepped out of the room. obtained PLOF and home set up from pt. post-op folder provided and reviewed contents with pt. BP in supine: 142/71. pt completed supine to sit mod A and cues. able to sit on EOB SBA. BP sittin/62. completed sit to stand max A x1-2 and max cues. pt requested to use the toilet. ambulated to the toilet using fWW ~ 10 ft mod A and max cues for RLE steadiness. max A for controlled descent to the toilet. pt c/o dizziness. completed sit to stand from the toilet using grab bar max A x 1-2 and max cues and ambulated to the chair ~ 5 ft using fWW mod A and max cues. c/o nausea. positioned pt on the chair. BP checked: 112/62 . nurse aware of decrease BP. pt wanted to stay up on the chair. cold therapy machine on. call light and table placed next to pt. Gait Assessment Gait Gait Assistance Required: Moderate Assistance Distance (Feet) 10 Able to Maintain Weight Bearing Status Yes During Gait Assistive Devices Assistive Device Gait Belt,Front Wheeled Walker Orthotic/Prosthetic Devices or Brace: No Gait Deviations General Gait Pattern Antalgic,Decreased Stride Length,Decreased Feet Clearance Factors Limiting Gait Function Factors Limiting Gait Function Decreased Activity Tolerance, Decreased Strength,Difficulty Following Directions,Limited Range of Motion,Pain,Poor Balance,Poor Safety Awareness PT-Balance Assessment Sitting Balance and Reactions Static Sitting Balance Ability Good Dynamic Sitting Balance Ability Good Standing Balance and Reactions Static Standing Balance Ability Fair Dynamic Standing Balance Ability Fair Device Used FWW M5 PT-IP Objective Assessments Start: 06/15/24 14:13 Freq: NEEDED Status: Active Protocol: Document 06/15/24 13:28 AB (Rec: 06/15/24 14:24 AB [id number]) Orientation Orientation/Cognition Level of Alertness Alert Orientation Name,Place,Situation Language Function Ability No Deficits Noted Safety Awareness Decreased Safety Awareness Memory Description No Deficits Noted Gross Range of Motion Lower Extremity ROM Assessment Right Impaired Impairments R knee flexion: ~ 70 deg R knee extension: ~ 20 deg less to 0 Strength Lower Extremity Strength Assessment Right Impaired Hip 3-/5 Knee 3+/5 Coordination Assessment Gross Coordination Gross Coordination WNL Sensation Assessment Sensation Gross Sensation WNL Muscle Tone Muscle Tone WNL Yes M6 PT-IP Treatment Start: 06/15/24 14:13 Freq: NEEDED Status: Active Protocol: Document 06/15/24 13:28 AB (Rec: 06/15/24 14:24 AB [id number]) Physical Therapy Treatment Exercises Exercises Heel Slides Education Education Provided Precautions,Weight Bearing Status,Post-Op Packet,Safety M7 PT-IP Assessment and Plan Start: 06/15/24 14:13 Freq: NEEDED Status: Active Protocol: Document 06/15/24 13:28 AB (Rec: 06/15/24 14:24 [id number]) PT Summary Assessment and Plan Potential Rehabilitation Potential Fair Status of Condition at Evaluation Evolving Summary Impairments Pain,ROM,Strength,Balance, Coordination,Sensation,Tone, Cognition,Bed Mobility, Transfers,Gait,Activity Tolerance Assessment Summary pt is an 83 y/o F s/p R TKA POD 0. pt is WBAT on RLE. pt requiring mod A for bed mobility, max A x 1-2 for sit to stand and mod A for ambulation using FWW. pt plans to go to SNF to improve overall strength and mobility independence. Goals Bed Mobility Goal Independent Transfer Goal Independent,Front Wheeled Walker Gait Goal Independent,Front Wheel Walker Gait Distance 150 Days to Meet Goals 5 Frequency of Treatment Frequency Of Treatment Twice a Day Treatment Plan Physical Therapy Treatment Plan Bed Mobility Training,Transfer Training,Gait Training, Therapeutic Exercise,Balance Retraining,Post Op Education, Discharge Planning,Hot or Cold Pack,Neuromuscular Re-ed, Coordination Retraining,Manual Therapy Weight Bearing Status Weight Bearing Status Weight Bear as Tolerated Allowed Weight Bearing Amount (enter % RLE WBAT or #) (%) Recommendations To Nursing Amount of Assist Needed 2 Person Assist Discharge Recommendations PT Discharge Recommendations SNF Rehab Transportation Needs at Discharge Private Vehicle,Wheelchair/ Cabulance
--- NOTE | 2024-06-15 15:17 | OT.IPNOTE ---
Pt requesting to wait on OT eval until tomorrow as just did PT eval earlier.
[2024-06-15] MEDS: ASPIRIN EC 81 MG TABLET PO (20:34)
[2024-06-15] MEDS: DOCUSATE 100 MG CAPSULE PO (20:34)
[2024-06-16] MEDS: CEFAZOLIN 2 GM/100 ML PREMIX 100 ML IV (00:16)
[2024-06-16] MEDS: ACETAMINOPHEN 325 MG TABLET 650 MG PO ×3 (00:16→18:18)
[2024-06-16 00:22] VITALS: BP 102/57; PULSE 74; RESP 16; TEMP 36.9; O2SAT 95
[2024-06-16 04:52] LABS: Hematocrit 29.2 % (36-46); Hemoglobin 9.6 g/dL (12.0-16.0)
[2024-06-16] MEDS: KETOROLAC 30 MG/ML VIAL 15 MG IV ×3 (04:56→19:43)
[2024-06-16] MEDS: PANTOPRAZOLE DR 20 MG TABLET PO (05:02)
[2024-06-16 05:38] VITALS: BP 109/56; PULSE 74; RESP 20; TEMP 36.7; O2SAT 95
[2024-06-16 08:00] VITALS: BP 108/58; PULSE 88; RESP 18; TEMP 37.2; O2SAT 100
--- NOTE | 2024-06-16 08:10 | P.PN_ITS ---
Subjective Subjective Date Patient Seen: 06/16/24 Time Patient Seen: 08:10 Interval history: 83-year-old female resting comfortably in bed in no apparent distress. Pain has been [id number]. No nausea or vomiting. No shortness of breath or chest pain. Patient lives alone and does not have assistance. Exam Vital Signs (past 8 hours): - 06/16/24 00:22 06/16/24 05:38 Temperature 98.5 F 98.1 F Pulse Rate 74 74 Respiratory Rate 16 20 Blood Pressure 102/57 L 109/56 L Pulse Oximetry 95 95 Oxygen Flow Rate 0 0 Oxygen Delivery Method Room Air Oxygen Flow Rate 0 Narrative Exam Narrative: 83-year-old female resting comfortably in bed in no apparent distress. Right knee dressing is clean, dry and intact. Neurovascular status is intact bilateral lower extremities. 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) History of arthroscopy of right knee Hx of tonsillectomy History of surgery Hx of bilateral cataract extraction (2010) History of fusion of lumbar spine (07/13/23) History of appendectomy Social History household members: none Smoking Status: Former smoker alcohol intake: current Assessment & Plan Post-op Postoperative Procedures: Procedures Operation Date: 06/15/24 08:45 Actual Procedure Side Surgeon p Total Knee Arthroplasty - Robot Right Barbi Beckwith MD Postoperative day: 1 Postoperative status: doing well Postoperative plan narrative: Patient will be maintained on standard postop total knee protocol. Weight-bearing as tolerated. Aspirin 81 mg b.i.d. x6 weeks for DVT prophylaxis Mobilize with physical therapy Multimodal pain management Patient does not have assistance at home and will need detention placement prior to being discharged home.
--- NOTE | 2024-06-16 09:05 | PT.IPTN ---
Current Diagnoses Bilateral primary osteoarthritis of knee (06/15/24) Unilateral primary osteoarthritis, right knee (06/15/24) Other specified joint disorders, unspecified knee (06/15/24) Surgery Performed Operation Date: 06/15/24 08:45 Actual Procedures p Total Knee Arthroplasty - Robot(Right) - Barbi Beckwith MD Physical Therapy Treatment Note M2 PT-IP Current Condition Start: 06/15/24 14:13 Freq: NEEDED Status: Active Protocol: Document 06/15/24 13:28 AB (Rec: 06/15/24 14:24 AB [id number]) Physical Therapy Current Condition Current Condition Evaluation Date 06/15/24 Treatment Diagnosis s/p R TKA; difficulty in walking Onset Date 06/15/24 M3 PT-IP Subjective Start: 06/15/24 14:13 Freq: NEEDED Status: Active Protocol: Document 06/16/24 09:30 TS (Rec: 06/16/24 09:42 TS [id number]) Subjective Physical Therapy Visit Type Type Treatment Note Visit Start Time 09:05 Visit Stop Time 09:30 Number of WAREHOUSE ANALYST Visits 1 Physical Therapy Visit Comments Patient Comments Pt found resting in bed, she is agreeable to PT. Therapy Pain Assessment Pain When Pain Assessed At Rest Pain Present Pain Present Pain Reported M4 PT-IP Mobility and Gait Start: 06/15/24 14:13 Freq: NEEDED Status: Active Protocol: Document 06/16/24 09:30 TS (Rec: 06/16/24 09:42 TS [id number]) PT-Bed Mobility Assessment Supine to Sit Supine to Sit Contact Guard Assistance,1 Person Assistance,Head of Bed Elevated Scooting Scooting to Edge of Bed Contact Guard Assistance PT-Transfer Assessment Sit to and From Stand Sit to and from Stand Minimal Assistance,1 Person Assistance,Use of Upper Extremities Equipment Transfer Assistive Device Gait Belt,Front Wheeled Walker Orthotic/Prosthetic Devices or Brace: No Comments Mobility Comments Pt performs quad sets, heel slides and SLR prior to mobility. Supine to sit CGA with HOB elevated. STS from bed Camacho with use of FWW for balance, pt has a slight posterior lean. She ambulates in the room ~50 SBA/CGA with FWW and a step to gait. She performs STS from chair Camacho with good carryover of sequencing. Pt was left in the chair, all needs met. Gait Assessment Gait Gait Assistance Required: Standby Assistance,Contact Guard Assist Distance (Feet) 50 Able to Maintain Weight Bearing Status Yes During Gait Assistive Devices Assistive Device Gait Belt,Front Wheeled Walker Gait Deviations General Gait Pattern Antalgic,Decreased Stride Length,Decreased Feet Clearance Factors Limiting Gait Function Factors Limiting Gait Function Decreased Activity Tolerance, Decreased Strength,Difficulty Following Directions,Limited Range of Motion,Pain,Poor Balance,Poor Safety Awareness PT-Balance Assessment Sitting Balance and Reactions Static Sitting Balance Ability Good Dynamic Sitting Balance Ability Good Standing Balance and Reactions Static Standing Balance Ability Fair Dynamic Standing Balance Ability Fair Device Used FWW M5 PT-IP Objective Assessments Start: 06/15/24 14:13 Freq: NEEDED Status: Active Protocol: Document 06/15/24 13:28 AB (Rec: 06/15/24 14:24 AB [id number]) Orientation Orientation/Cognition Level of Alertness Alert Orientation Name,Place,Situation Language Function Ability No Deficits Noted Safety Awareness Decreased Safety Awareness Memory Description No Deficits Noted Gross Range of Motion Lower Extremity ROM Assessment Right Impaired Impairments R knee flexion: ~ 70 deg R knee extension: ~ 20 deg less to 0 Strength Lower Extremity Strength Assessment Right Impaired Hip 3-/5 Knee 3+/5 Coordination Assessment Gross Coordination Gross Coordination WNL Sensation Assessment Sensation Gross Sensation WNL Muscle Tone Muscle Tone WNL Yes M6 PT-IP Treatment Start: 06/15/24 14:13 Freq: NEEDED Status: Active Protocol: Document 06/16/24 09:30 TS (Rec: 06/16/24 09:42 TS [id number]) Physical Therapy Treatment Exercises Exercises Quad Sets,Heel Slides,Straight Leg Raises Education Education Provided Precautions,Weight Bearing Status,Post-Op Packet,Safety M7 PT-IP Assessment and Plan Start: 06/15/24 14:13 Freq: NEEDED Status: Active Protocol: Document 06/16/24 09:30 TS (Rec: 06/16/24 09:42 TS [id number]) PT Summary Assessment and Plan Potential Rehabilitation Potential Good Summary Progress Towards Goals Progressing Toward Goals Assessment Summary Amada is making progress with her mobility this session. She performs bed mobility CGA with HOB elevated. She requires Camacho for STS, she does have good recall of STS technique. She progressed her gait to ~50'SBA/CGA with use of FWW. Pt lives alone and plans to d/c to SNF. Goals Bed Mobility Goal Independent Transfer Goal Independent,Front Wheeled Walker Gait Goal Independent,Front Wheel Walker Gait Distance 150 Days to Meet Goals 5 Frequency of Treatment Frequency Of Treatment Twice a Day Treatment Plan Physical Therapy Treatment Plan Bed Mobility Training,Transfer Training,Gait Training, Therapeutic Exercise,Balance Retraining,Post Op Education, Discharge Planning,Hot or Cold Pack,Neuromuscular Re-ed, Coordination Retraining,Manual Therapy Weight Bearing Status Weight Bearing Status Weight Bear as Tolerated Allowed Weight Bearing Amount (enter % RLE WBAT or #) (%) Recommendations To Nursing Amount of Assist Needed 1 Person Assist Discharge Recommendations PT Discharge Recommendations SNF Rehab Transportation Needs at Discharge Private Vehicle,Wheelchair/ Cabulance
[2024-06-16] MEDS: DOCUSATE 100 MG CAPSULE PO ×2 (09:07→19:44)
[2024-06-16] MEDS: ASPIRIN EC 81 MG TABLET PO ×2 (09:07→19:44)
--- NOTE | 2024-06-16 09:50 | OT.IP.EVAL ---
Current Diagnoses Bilateral primary osteoarthritis of knee (06/15/24) Unilateral primary osteoarthritis, right knee (06/15/24) Other specified joint disorders, unspecified knee (06/15/24) Surgery Performed Operation Date: 06/15/24 08:45 Actual Procedures p Total Knee Arthroplasty - Robot(Right) - Barbi Beckwith MD Past Medical History (Last Reviewed 01/28/24 @ 08:49 by Kareem Neff PA-C) Arthritis Cataract Osteoarthritis Surgical History (Last Updated 06/07/24 @ 08:56 by Susana Mathis, COLETTE) History of appendectomy History of arthroscopy of right knee History of fusion of lumbar spine (07/13/23) History of surgery Hx of bilateral cataract extraction (2010) Hx of tonsillectomy 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 Social History Household Members none Living Arrangements Half-Way Facility Number of Stairs To Enter/Railing? pt lives at [facility] no steps to enter Home Environment High Toilet,Walk in Shower Home Equipment Front Wheel Walker,Four Wheel Walker,Straight Cane,Hand Held Shower,Grab Bars Near Toilet, Grab Bars In Shower Additional Social History Comment pt has an adjustable bed M2 OT-IP Current Condition Start: 06/16/24 09:56 Freq: Status: Active Protocol: Document 06/16/24 09:57 [facility] (Rec: 06/16/24 10:12 [facility] [id number]) Occupational Therapy Current Condition Current Condition Evaluation Date 06/16/24 Treatment Diagnosis S/P R TKA Diagnosis Onset Date 06/15/24 M3 OT- IP Subjective and Pain Start: 06/16/24 09:56 Freq: Status: Active Protocol: Document 06/16/24 09:57 [facility] (Rec: 06/16/24 10:12 [facility] [id number]) OT- Subjective Occupational Therapy Visit Type Type Initial Evaluation Visit Start Time 09:30 Visit Stop Time 09:50 Occupational Therapy Visit Comments Patient Comments Pt agreed to get up. Patient/Caregiver Goals TO go to skilled rehab prior to gong home. OT Pain Assessment Pain When Pain Assessed During Mobility Pain Present Pain Present Pain Reported Location Right Knee Intensity 6 Scale Used Numeric (0 - 10) M4 OT- IP ADL's Start: 06/16/24 09:56 Freq: Status: Active Protocol: Document 06/16/24 09:57 [facility] (Rec: 06/16/24 10:12 [facility] [id number]) OT MYR-Hsmx-Rbpvubr General Evaluation Self-Feeding Ability Independent OT ADL-Grooming Comments OT Grooming Comments Pt states did earlier. OT ADL-Oral Care Comments Oral Care Comments Pt states did earlier. OT ADL-Dressing General Eval Lower Body Dressing Ability Maximum Assistance Areas Needing Assistance Socks Comments OT Dressing Comments Educated to dress the RLE first and take out last. OT ADL-Toileting Comments OT Toileting Comments Pt states not having to go. Educated pt to be mindful not to twist her knee especially during ADL needs. OT ADL-Bathing Comments OT Bathing Comments Pt's shower at home too small for a shower chair and will have to do standing, the shower does have grab bars. M5 OT- IP IADL's Start: 06/16/24 09:56 Freq: Status: Active Protocol: Document 06/16/24 09:57 [facility] (Rec: 06/16/24 10:12 [facility] [id number]) OT-Instrumental Activities of Daily Living Deficits IADL Deficits Identified Deficits Home Safety Awareness Awareness of Need for Assistance at Home Good Awareness Home Safety Comments Pt aware not able to go home and willing to do skilled rehab as had good success after her Left knee sx on Jan 27 2024. M6 OT- IP Functional Cognition Start: 06/16/24 09:56 Freq: Status: Active Protocol: Document 06/16/24 09:57 [facility] (Rec: 06/16/24 10:12 [facility] [id number]) OT- Vision and Hearing OT- Hearing Assessment OT- Hearing Assessment Hearing Impaired OT- Vision Assessment Visual Acuity Glasses All The Time Visual Attentiveness WFL Occular Pursuits WFL M7 OT- IP Mobility and Balance Start: 06/16/24 09:56 Freq: Status: Active Protocol: Document 06/16/24 09:57 [facility] (Rec: 06/16/24 10:12 [facility] [id number]) OT- Bed Mobility Assessment Sit to Supine Sit to Supine Assist Minimal Assistance OT-Transfer Assessment Sit to and From Stand Sit to and from Stand Minimal Assistance,Moderate Assistance Transfers Transfer Ability Contact Guard Assistance Technique Transfer Destination Bed,Chair Devices Transfer Assistive Devices Gait Belt,Front Wheeled Walker Comments Mobility Comments Pt ABIGAIL to stand from the recliner and will need MODA from lower surfaces. ONce on her feet CGA with FWW of level surfaces. Pt will require more assist especially on even surfaces. OT- Balance Assessment Sitting Balance and Reactions Static Sitting Balance Ability Good Dynamic Sitting Balance Ability Fair Standing Balance and Reactions Static Standing Balance Ability Fair Dynamic Standing Balance Ability Fair M8 OT- IP Objective Assessments Start: 06/16/24 09:56 Freq: Status: Active Protocol: Document 06/16/24 09:57 [facility] (Rec: 06/16/24 10:12 [facility] [id number]) OT Gross Range of Motion Upper Extremity Range of Motion Assessment Within Functional Limits OT Strength Upper Extremity Strength Assessment Within Functional Limits M9 OT- IP Assessment and Plan Start: 06/16/24 09:56 Freq: Status: Active Protocol: Document 06/16/24 09:57 [facility] (Rec: 06/16/24 10:12 [facility] [id number]) OT Summary Assessment and Plan Potential Rehabilitation Potential Excellent Analytic Complexity at Evaluation Low Summary OT Impairments Pain,Strength,Balance, Functional Mobility,Dressing, Toileting,Bathing,Toilet Transfers,Shower Transfers, Activity Tolerance Progress Towards Goals Progressing Toward Goals Assessment Summary Pt low complexity and here for R TKA. Pt had good success after having L TKA January 27, 2024 at skilled rehab and hopes to have skilled rehab again prior to going home. Pt' s main barriers are pain, having shower stall and only able to stand for showers at home, and needing some assist for RLE management for bed mobility needs. Pt to go to skilled rehab. Goals Grooming Goal Independent Dressing Goal Independent,Addiction Therapist Toileting Goal Independent Bathing Goal Independent Toilet Transfer Goal Independent Shower Transfer Goal Independent Days to Meet Goals 10 Frequency of Treatment Other frequency 5x/week Treatment Plan OT Treatment Plan ADL Training,Functional Mobility,Patient/Family Education,Discharge Planning Other Treatment Recommendations and Next Standing ADL's Treatment Focus Discharge Recommendations OT Discharge Recommendations SNF Rehab Transportation Needs at Discharge Private Vehicle,Wheelchair/ Cabulance
--- NOTE | 2024-06-16 12:35 | CM.DANOTE ---
DCP Assessment Note Pt is an 83yo F here following planned right total knee surgery with Dr. Beckwith, pt is POD1 PCP Jackson [facility] and [facility] QUALITY CONTROL ANALYST reviewed EMR. pt preauthed as INPT status. PT/OT rec SNF rehab at this time. Pt has PMH of TLIF/left knee in Jul 23 and January 21 respectively. Both times dc'd to [facility]. Per chart, pt lives at [facility] in [facility] apartments. QUALITY CONTROL ANALYST met with pt, dtr Dalila, and ERROL in room. Pt confirms preference is [facility]. QUALITY CONTROL ANALYST explained that because she has a managed MCR plan we do not have to wait for the three midnights for SNF approval and that it is auth based. Pt/family expressed understanding. QUALITY CONTROL ANALYST spoke with Mary Alice at , able to accept, auth pending, transport scheduled tentatively for 1099. QUALITY CONTROL ANALYST updated pt/family/ortho PA. QUALITY CONTROL ANALYST completed PASRR. P: anticipate dc to [facility] 06/17 at 1100 pending auth and medical stability. CM team will continue to follow closely TYRESE Angulo Discharge Planning/Care Management Advanced directive, confirm from FAMILY Start: 06/15/24 12:54 Freq: Q24H Status: Active Protocol: Document 06/15/24 12:54 AKP (Rec: 06/15/24 12:56 AKP [id number]) Advance Directive, confirm on record Time 12:56 Person contacted daughter states she brought in Copy received No CM Discharge Assessment Start: 06/16/24 12:33 Freq: Status: Active Protocol: Document 06/16/24 12:33 SL (Rec: 06/16/24 12:35 SL [id number]) Discharge Planning Assessment Assigned Playback Operator TYRESE Ibarra DPOA/Assigned Designee Name marlene Conner Contact Information [phone] Advance Directives? Yes Advance Directives on File No History Provided By Patient,Family Member,Medical Record Prior Living Arrangements Custodial Facility Household Members none Independent with ADL's Yes Is patient alert and oriented? Yes Patient/Family Preference Jail Facility Discharge Plan Jail Facility Referrals Initiated Jail Additional Comment [facility] able to accept, ins auth pending If patient plan is SNF: Has PASSR been Yes completed? Whiteboard Updated in Patient Room with Yes name and ext. # of Playback Operator Review Status In Process Please Provide Date Initial DC 06/16/24 Assessment Was Performed Next Review Type Continued Stay Review Pre-Anesthesia Assessment Start: 06/07/24 08:48 Freq: Status: Active Protocol: Document 06/07/24 08:48 LB (Rec: 06/07/24 09:21 LB [id number]) Pre-Anesthesia Assessment PAC Comment 06/07/24 Phone assessment. Preferred Name Roxanna Patient Information Reviewed Via Phone Assessment Assessment Completed With Patient Diagnostic Results BMP/CMP,CBC Comment 01/30/24 at [facility] & 12/29/23 outside labs H&H 9.3/ 27.3 on 01/30/24 Primary Care Provider Jackson Palomino Seen Specialist in Last 12 Months Yes Specialist Seen Orthopedist,Other Primary Language Venezuelan Preferred Language Venezuelan Filter Cloth Maker Required No Height 154.94 cm Weight 77.111 kg Body Mass Index (BMI) 32.1 Hearing Ability Normal Visual Assist Glasses Dentition Type Teeth, Natural Present Barriers to Learning None Hx Anesthesia Reactions No Hx Family Anesthesia Reaction Yes: Daughter-PONV Hx Malignant Hyperthermia No Hx Blood Transfusions No Hx Blood Transfusion Reaction No Anesthesia Review Requested No Merchandise Execution Leader No alcohol intake current alcohol intake frequency holidays/special occasions only Smoking Status Former smoker how long ago did patient quit smoking 1982 Substance Use Type does not use Pain Present Denied Pain Musculoskeletal Symptoms Joint Pain History of Falling (Recent or History of No ) Patient is completely paralyzed or No completely immobile Mental Status Oriented to own ability Comment Will bring walker. Is patient on oxygen? No Does patient have PURCELL/SOB No Hx Sleep Apnea No CPAP/BIPAP use not prescribed Currently Taking a Beta Kate No Can You Climb a Flight of Stairs Without Yes SOB Hx Chest Pain No Hx SOB No Hx Syncope or Dizziness No Anti-Coagulant Therapy No Cardiac Testing No Hx Pacemaker/ICD No Cardiac Clearance Received Not Applicable Dysphagia No Gastrointestinal Symptoms Retching Hx Urinary Self Catheterization No Diabetes No HgbA1C 5.0 Date 12/29/23 Patient No Hx Drug Resistant Organism No Presence of External or Internal Medical Yes: right great toe screw, Devices lumbar hardware, left knee, bilat IOL Have you had any close contact with No someone diagnosed with COVID-19? Are you experiencing any of these No symptoms symptoms? Received a COVID vaccine? Yes Lives With none Support System Child/Children Patient Discharge Plan Description Jail Facility/Rehab Comment Advised 3 night LOS then SNF for 2 weeks per surgeon. Do You Have Any Spiritual Beliefs That No May Affect Your HC Choices? Do You Have Any Cultural Practices That No May Affect Your HC Choices? Emergency Contact Name Larissa Blount (daughter) Emergency Contact Advance Directives? Yes Advance Directives on File No Power of Director Plans Yes Power of Director Plans Name Larissa Blount (daughter) Power of Director Plans PAC Instructions Assistance for 24 hours post- op,Durable medical equipment, Medications to take/avoid, Nasal antibiotic,No ETOH/ petroleum product on skin DOS, NPO,Pre-op antibiotic,Pre- surgical wash,Sensory aids, Sturdy shoes/comfortable clothes,Do not bring valuables and remove jewelry Stop Bang Assessment Do you snore loudly (louder than talking Yes or loud enough to be heard through closed doors) Do you often feel tired, fatigued or Yes sleepy during the daytime Has anyone ever observed you stop No breathing while sleeping? Do you have, or are you being treated No for, high blood pressure Is your BMI more than 35 kg/m2 No Age over 50 Yes Estimated neck circumference greater No than 40cm or 16in Gender male No Result Negative
--- NOTE | 2024-06-16 12:40 | PT.IPTN ---
Current Diagnoses Bilateral primary osteoarthritis of knee (06/15/24) Unilateral primary osteoarthritis, right knee (06/15/24) Other specified joint disorders, unspecified knee (06/15/24) Surgery Performed Operation Date: 06/15/24 08:45 Actual Procedures p Total Knee Arthroplasty - Robot(Right) - Barbi Beckwith MD Physical Therapy Treatment Note M2 PT-IP Current Condition Start: 06/15/24 14:13 Freq: NEEDED Status: Active Protocol: Document 06/15/24 13:28 AB (Rec: 06/15/24 14:24 AB [id number]) Physical Therapy Current Condition Current Condition Evaluation Date 06/15/24 Treatment Diagnosis s/p R TKA; difficulty in walking Onset Date 06/15/24 M3 PT-IP Subjective Start: 06/15/24 14:13 Freq: NEEDED Status: Active Protocol: Document 06/16/24 13:04 TS (Rec: 06/16/24 13:11 TS [id number]) Subjective Physical Therapy Visit Type Type Treatment Note Visit Start Time 12:40 Visit Stop Time 13:03 Number of HORSE RIDER Visits 2 Physical Therapy Visit Comments Patient Comments Pt found resting in bed, she is agreeable to PT. Therapy Pain Assessment Pain When Pain Assessed During Mobility Pain Present Pain Present Pain Reported M4 PT-IP Mobility and Gait Start: 06/15/24 14:13 Freq: NEEDED Status: Active Protocol: Document 06/16/24 13:04 TS (Rec: 06/16/24 13:11 TS [id number]) PT-Bed Mobility Assessment Supine to Sit Supine to Sit Contact Guard Assistance,1 Person Assistance,Head of Bed Elevated Sit to Supine Sit to Supine Standby Assistance Scooting Scooting to Edge of Bed Contact Guard Assistance PT-Transfer Assessment Sit to and From Stand Sit to and from Stand Minimal Assistance,1 Person Assistance Equipment Transfer Assistive Device Gait Belt,Front Wheeled Walker Orthotic/Prosthetic Devices or Brace: No Comments Mobility Comments Supine to sit CGA with HOB elevated, pt uses BUE support to assist RLE to EOB. STS with FWW Camacho, pt demonstrates good carryover. She ambulates ~150' SBA/CGA with FWW, pt tends to ambulate step to gait and sometimes emerging step thru gait. Sit to supine into bed Gait Assessment Gait Gait Assistance Required: Standby Assistance,Contact Guard Assist Distance (Feet) 150 Able to Maintain Weight Bearing Status Yes During Gait Assistive Devices Assistive Device Gait Belt,Front Wheeled Walker Gait Deviations General Gait Pattern Antalgic,Decreased Stride Length,Decreased Feet Clearance Factors Limiting Gait Function Factors Limiting Gait Function Decreased Activity Tolerance, Decreased Strength,Difficulty Following Directions,Limited Range of Motion,Pain,Poor Balance PT-Balance Assessment Sitting Balance and Reactions Static Sitting Balance Ability Good Dynamic Sitting Balance Ability Fair Standing Balance and Reactions Static Standing Balance Ability Fair Dynamic Standing Balance Ability Fair Device Used FWW M5 PT-IP Objective Assessments Start: 06/15/24 14:13 Freq: NEEDED Status: Active Protocol: Document 06/15/24 13:28 AB (Rec: 06/15/24 14:24 AB [id number]) Orientation Orientation/Cognition Level of Alertness Alert Orientation Name,Place,Situation Language Function Ability No Deficits Noted Safety Awareness Decreased Safety Awareness Memory Description No Deficits Noted Gross Range of Motion Lower Extremity ROM Assessment Right Impaired Impairments R knee flexion: ~ 70 deg R knee extension: ~ 20 deg less to 0 Strength Lower Extremity Strength Assessment Right Impaired Hip 3-/5 Knee 3+/5 Coordination Assessment Gross Coordination Gross Coordination WNL Sensation Assessment Sensation Gross Sensation WNL Muscle Tone Muscle Tone WNL Yes M6 PT-IP Treatment Start: 06/15/24 14:13 Freq: NEEDED Status: Active Protocol: Document 06/16/24 13:04 TS (Rec: 06/16/24 13:11 [id number]) Physical Therapy Treatment Education Education Provided Precautions,Weight Bearing Status,Post-Op Packet,Safety M7 PT-IP Assessment and Plan Start: 06/15/24 14:13 Freq: NEEDED Status: Active Protocol: Document 06/16/24 13:04 TS (Rec: 06/16/24 13:11 [id number]) PT Summary Assessment and Plan Potential Rehabilitation Potential Good Summary Impairments Pain,ROM,Strength,Balance, Coordination,Sensation,Tone, Cognition,Bed Mobility, Transfers,Gait,Activity Tolerance Progress Towards Goals Progressing Toward Goals Assessment Summary Amada continues to do well with her mobility. She is SBA/ CGA for bed mobility. She progressed her gait to ~150' SBA/CGA. She demonstrates good safety awareness with ehr mobility. Goals Bed Mobility Goal Independent Transfer Goal Independent,Front Wheeled Walker Gait Goal Independent,Front Wheel Walker Gait Distance 150 Days to Meet Goals 5 Frequency of Treatment Frequency Of Treatment Twice a Day Treatment Plan Physical Therapy Treatment Plan Bed Mobility Training,Transfer Training,Gait Training, Therapeutic Exercise,Balance Retraining,Post Op Education, Discharge Planning,Hot or Cold Pack,Neuromuscular Re-ed, Coordination Retraining,Manual Therapy Weight Bearing Status Weight Bearing Status Weight Bear as Tolerated Allowed Weight Bearing Amount (enter % RLE WBAT or #) (%) Recommendations To Nursing Amount of Assist Needed 1 Person Assist Discharge Recommendations PT Discharge Recommendations SNF Rehab Transportation Needs at Discharge Private Vehicle,Wheelchair/ Cabulance
[2024-06-16] MEDS: polyethylene glycoL 3350 17 GM POWD.PACK PO (14:42)
[2024-06-16 16:24] VITALS: BP 154/79; PULSE 88; RESP 15; TEMP 36.4; O2SAT 98
[2024-06-16] MEDS: BISACODYL 10 MG SUPP PR (18:19)
[2024-06-16] MEDS: ONDANSETRON 4 MG/2 ML INJ IV (18:59)
[2024-06-16] MEDS: hydrOXYzine HCL 25 MG TABLET PO (19:47)
[2024-06-16 20:00] VITALS: BP 149/77; PULSE 77; RESP 18; TEMP 36.9; O2SAT 96
[2024-06-16] MEDS: HYDROCODONE/ACET 5/325 TABLET 2 TAB PO (21:16)
[2024-06-17 04:49] VITALS: BP 131/71; PULSE 85; RESP 22; TEMP 36.9; O2SAT 94
[2024-06-17] MEDS: HYDROCODONE/ACET 5/325 TABLET 2 TAB PO (04:55)
[2024-06-17] MEDS: polyethylene glycoL 3350 17 GM POWD.PACK PO (04:55)
[2024-06-17] MEDS: ONDANSETRON 4 MG/2 ML INJ IV (05:08)
[2024-06-17 05:28] LABS: Estimated Glomerular Filt Rate > 60 mL/min (>60)
[2024-06-17] MEDS: PANTOPRAZOLE DR 20 MG TABLET PO (05:49)
--- NOTE | 2024-06-17 08:55 | PT.IPTN ---
Current Diagnoses Bilateral primary osteoarthritis of knee (06/15/24) Unilateral primary osteoarthritis, right knee (06/15/24) Other specified joint disorders, unspecified knee (06/15/24) Surgery Performed Operation Date: 06/15/24 08:45 Actual Procedures p Total Knee Arthroplasty - Robot(Right) - Barbi Beckwith MD Physical Therapy Treatment Note M2 PT-IP Current Condition Start: 06/15/24 14:13 Freq: NEEDED Status: Active Protocol: Document 06/15/24 13:28 AB (Rec: 06/15/24 14:24 AB [id number]) Physical Therapy Current Condition Current Condition Evaluation Date 06/15/24 Treatment Diagnosis s/p R TKA; difficulty in walking Onset Date 06/15/24 M3 PT-IP Subjective Start: 06/15/24 14:13 Freq: NEEDED Status: Active Protocol: Document 06/17/24 09:07 TS (Rec: 06/17/24 09:12 TS [id number]) Subjective Physical Therapy Visit Type Type Treatment Note Visit Start Time 08:55 Visit Stop Time 09:05 Number of SPECIAL EVENTS COORDINATOR Visits 3 Physical Therapy Visit Comments Patient Comments Pt reports having an upset stomach and feeling weaker today. She is agreeable to PT. Therapy Pain Assessment Pain When Pain Assessed During Mobility Pain Present Pain Present Pain Reported M4 PT-IP Mobility and Gait Start: 06/15/24 14:13 Freq: NEEDED Status: Active Protocol: Document 06/17/24 09:07 TS (Rec: 06/17/24 09:12 TS [id number]) PT-Bed Mobility Assessment Sit to Supine Sit to Supine Standby Assistance Scooting Scooting Up and Down in Bed Standby Assistance PT-Transfer Assessment Sit to and From Stand Sit to and from Stand Contact Guard Assistance,1 Person Assistance Equipment Transfer Assistive Device Gait Belt,Front Wheeled Walker Orthotic/Prosthetic Devices or Brace: No Comments Mobility Comments STS from the chair CGA with FWW. She amblates ~15' in the room, she requests back to bed due to fatigue. Pt was left back in bed, all needs met. Gait Assessment Gait Gait Assistance Required: Standby Assistance,Contact Guard Assist Distance (Feet) 15 Able to Maintain Weight Bearing Status Yes During Gait Assistive Devices Assistive Device Gait Belt,Front Wheeled Walker Gait Deviations General Gait Pattern Antalgic,Decreased Stride Length,Decreased Feet Clearance Factors Limiting Gait Function Factors Limiting Gait Function Decreased Activity Tolerance, Decreased Strength,Difficulty Following Directions,Limited Range of Motion,Pain,Poor Balance PT-Balance Assessment Sitting Balance and Reactions Static Sitting Balance Ability Good Dynamic Sitting Balance Ability Fair Standing Balance and Reactions Static Standing Balance Ability Fair Dynamic Standing Balance Ability Fair Device Used FWW M5 PT-IP Objective Assessments Start: 06/15/24 14:13 Freq: NEEDED Status: Active Protocol: Document 06/15/24 13:28 AB (Rec: 06/15/24 14:24 AB [id number]) Orientation Orientation/Cognition Level of Alertness Alert Orientation Name,Place,Situation Language Function Ability No Deficits Noted Safety Awareness Decreased Safety Awareness Memory Description No Deficits Noted Gross Range of Motion Lower Extremity ROM Assessment Right Impaired Impairments R knee flexion: ~ 70 deg R knee extension: ~ 20 deg less to 0 Strength Lower Extremity Strength Assessment Right Impaired Hip 3-/5 Knee 3+/5 Coordination Assessment Gross Coordination Gross Coordination WNL Sensation Assessment Sensation Gross Sensation WNL Muscle Tone Muscle Tone WNL Yes M6 PT-IP Treatment Start: 06/15/24 14:13 Freq: NEEDED Status: Active Protocol: Document 06/17/24 09:07 TS (Rec: 06/17/24 09:12 TS [id number]) Physical Therapy Treatment Education Education Provided Precautions,Weight Bearing Status,Post-Op Packet,Safety M7 PT-IP Assessment and Plan Start: 06/15/24 14:13 Freq: NEEDED Status: Active Protocol: Document 06/17/24 09:07 TS (Rec: 06/17/24 09:12 TS [id number]) PT Summary Assessment and Plan Potential Rehabilitation Potential Good Summary Impairments Pain,ROM,Strength,Balance, Coordination,Sensation,Tone, Cognition,Bed Mobility, Transfers,Gait,Activity Tolerance Progress Towards Goals Slow Progress due to Activity Tolerance Assessment Summary Amada lanues to do well with her mobility but is limited by a poor activity tolerance this morning. She continues to CGA/SBA for mobility. She ambulates a short distance in the room before becoming tired. PT is recommending SNF. Goals Bed Mobility Goal Independent Transfer Goal Independent,Front Wheeled Walker Gait Goal Independent,Front Wheel Walker Gait Distance 150 Days to Meet Goals 5 Frequency of Treatment Frequency Of Treatment Twice a Day Treatment Plan Physical Therapy Treatment Plan Bed Mobility Training,Transfer Training,Gait Training, Therapeutic Exercise,Balance Retraining,Post Op Education, Discharge Planning,Hot or Cold Pack,Neuromuscular Re-ed, Coordination Retraining,Manual Therapy Weight Bearing Status Weight Bearing Status Weight Bear as Tolerated Allowed Weight Bearing Amount (enter % RLE WBAT or #) (%) Recommendations To Nursing Amount of Assist Needed Standby Assistance Discharge Recommendations PT Discharge Recommendations SNF Rehab Transportation Needs at Discharge Private Vehicle,Wheelchair/ Cabulance
--- NOTE | 2024-06-17 09:01 | PM.DS.1 ---
History of Present Illness History of Present Illness Date Patient Seen: 06/17/24 Time Patient Seen: 08:30 Chief complaint: Right TKA Narrative: The patient is a 83-year-old female with right valgus end-stage [id number] knee arthritis. The patient has a significant right knee arthritis. They have failed conservative treatment with activity modifications, injections, physical therapy and bracing. They has been indicated for total knee replacement. The risks and benefits of the procedure have been discussed with the patient even opportunity to ask questions. The risks of surgery include but are not limited to infection, malunion, nonunion, fracture, loosening, persistence of pain, damage to nerves and blood vessels, need for additional procedures, DVT, PE, cardiopulmonary complications and . The patient expressed a thorough understanding of the risks and benefits of surgery and has elected to proceed. Consent was signed in the office. Discharge Providers Provider Date of admission: 06/15/24 07:15 Discharge Date: 06/17/24 Primary care physician: Jackson Palomino MD Consults: 06/15/24 12:02 Consult to Discharge Planning Routine Comment: snf Consult to Occupational Therapy Evaluate & Treat Comment: Physician Instructions: Evaluate and treat Consult to Physical Therapy Evaluate & Treat Comment: snf Physician Instructions: postop TKA protocol Discharge provider: Darren Whipple PA-C Summary Hospital Course Discharge Diagnosis: Right knee arthritis Hospital Course: Procedure & Clinicians Procedure: Total knee arthroplasty, right CPT code 35566 Robotic assisted surgery CPT S2900 Computer navigation assisted surgery CPT code 26558 Same procedure as scheduled: Yes Surgeon: Barbi Beckwith Travograph Operator: Kimi Ochoa Anesthesia Type: General, Spinal, Peripheral nerve block and Local Operative Notes Findings: End-stage valgus knee arthritis, right Closure Type: primary Specimen(s): none sent Prosthetic devices, grafts, tissues, transplants, or devices: Valdez and nephew journey 2 BCS Femur cobalt chromium 5 Tibia 3 Poly 11 mm Patella 32 x 7.5 round Estimated Blood Loss (mL): 100 Blood products transfused: none Tourniquet time (min): 82 Status at Discharge Cognitive/behavioral status at discharge: oriented Functional status at discharge: uses cane/walker Overall status at discharge: patient is progressing back to baseline Time Spent with Patient Time spent: Less than 30 minutes Exam Vital Signs (past 8 hours): - 06/17/24 04:49 Temperature 98.5 F Pulse Rate 85 Respiratory Rate 22 Blood Pressure 131/71 Pulse Oximetry 94 Oxygen Flow Rate 0 Oxygen Delivery Method Room Air Oxygen Flow Rate 0 Narrative Exam Narrative: Patient is found sitting in her chair. She has had episodes of diarrhea throughout the morning. Because of this she is currently. With regards to her right knee she has a little to no pain. No new numbness or tingling along the right lower extremity. She has been working with physical therapy and able to ambulate with assistance. 5/5 strength in hip flexors, quadriceps, hamstrings, DF, PF, EHL bilaterally. Sensation to light touch intact throughout BLE. Calves soft, compressible, nontender. ?Dressing placed intraoperatively CDI. 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 Baseline multimodal pain control with ibuprofen 400 mg q.4 hours as needed and acetaminophen 650 q.6 hours PRN. Prescribe hydrocodone/acetaminophen 5/320 5q 4 hours as needed for breakthrough pain. Aspirin 81 mg b.i.d. for 6 weeks for DVT prophylaxis. Keep dressing clean and dry. Standard total knee replacement protocol with weight-bearing as tolerated with assistive devices. Follow up in clinic 2 weeks for wound check. Discharge Plan Discharge Plan Patient Disposition: [facility] Transfer to: [facility] Discharge orders & Medications Prescriptions: New acetaminophen 325 mg Tablet 650 mg PO Q6H Qty: 120 0RF aspirin 81 mg Tablet,Delayed Release (Dr/Ec) 81 mg PO BID Qty: 90 0RF docusate sodium 100 mg Capsule 100 mg PO BID PRN (Reason: constipation) Qty: 60 0RF hydrocodone-acetaminophen 5-325 mg Tablet 1 tab PO Q4H PRN (Reason: Pain, Moderate (4-6)) Qty: 30 0RF ibuprofen 400 mg Tablet 400 mg PO Q4H PRN (Reason: Pain, Mild (1-3)) Qty: 120 0RF hydroxyzine HCl 25 mg Tablet 25 mg PO Q6H PRN (Reason: Nausea) Qty: 30 0RF Continued omeprazole 20 mg Capsule,Delayed Release(Dr/Ec) 20 mg PO DAILY Follow up/Referrals: Jackson Palomino MD [Primary Care Provider] - Diet/Activity/Treatments Diet: Diet as Tolerated Activity: Ambulate multiple times a day. Use a cane or walker as needed. Full weight on leg. Cold/Heat Therapy: Use ice multiple times a day. Skin/Wound/Dressing Care Report to your healthcare provider any signs of infection, such as:: chills, fever, night sweats, unusual drainage and unusual redness Dressing: May shower. Leave dressing in place until follow up in office. No bathing or otherwise soaking incision. Call the office if the dressing becomes saturated inside. Visit Report/Discharge Packet Instructions: DI for Knee Replacement Stand Alone Forms: Patient Portal/API, Surgery Discharge Discharge Data Primary Care Provider: Jackson Palomino
--- NOTE | 2024-06-17 09:33 | CM.DPNOTE ---
DCP Note ARCHITECT reviewed EMR. Per valentin Gonsalez, cleared to dc today. ARCHITECT met with pt in room. in agreement with plan, preference remains dc to [facility]. denies questions. pt reports she will update dtr. ARCHITECT gave RN report number and updated on transport time. ARCHITECT updated [facility] [employer] [facility]. ARCHITECT gave [facility] and med list to TYRESE Echavarria who SO KINDLY agreed to send that and the other dc information to Ele at . ARCHITECT confirmed with Ele at all good for 11am p/u today. ARCHITECT gave [facility] pt's diet order. P: dc to [facility] today at 11am. CM team will continue to follow as needed TYRESE Angulo
[2024-06-17] MEDS: ASPIRIN EC 81 MG TABLET PO (10:36)
--- NOTE | 2024-06-17 11:46 | PC.NURSE ---
Patient A&OX4, VSS, afebrile on RA. She has multiple BM's (loose) this a.m. after laxatives given yesterday for constipation. She is cleared for discharge to [facility] at bedside. At 11 a.m. facility designee transports her via w/ch with all of her belongings to [facility]. Report called to Jennie.
== END 2024-06-17 11:15 | DRG 470 ==
PROVIDERS: Admitting Provider Orthopaedic Surgery Foot and Ankle Surgery; PCP Family Medicine; Referring Provider Orthopaedic Surgery Foot and Ankle Surgery; Visit Provider Orthopaedic Surgery Foot and Ankle Surgery
PROC: 0SRC0JZ Replacement of Right Knee Joint with Synthetic Substitute, Open Approach (ICD-10-PCS; CPT 27447; principal; 2024-06-15 08:45)
DX: M17.11 Unilateral primary osteoarthritis, right knee (principal); K21.9 Gastro-esophageal reflux disease without esophagitis
CPT/HCPCS: 36415; 64450; 73560; 82565; 85014; 85018; 97116; 97162; 97165; 97530; C1776; A9270; C9290; J0171; J0690; J1100; J1171; J1885; J2405; J2704; J3010; J3410